=== PATIENT | female | born 1995 | race Caucasian/White ===

== ENCOUNTER → 2020-06-25 10:27 | Outpatient (BNVA) | payer OTHER, SELFPAY | PROVIDERS: PCP Internal Medicine; Referring Provider Internal Medicine; Visit Provider Nurse Practitioner Gerontology | DX: Z13.89 Encounter for screening for other disorder (principal) | CPT/HCPCS: 99212 ==

== ENCOUNTER 2021-03-21 01:19 | Emergency (ER) | payer OTHER, SELFPAY ==
[2021-03-21 01:33] VITALS: BP 135/100; PULSE 100; RESP 16; TEMP 36.4; O2SAT 95; BMI 42.5
== END 2021-03-21 03:04 | disposition left against medical advice (07) ==
PROVIDERS: Emergency Provider Emergency Medicine; PCP Internal Medicine
DX: K08.89 Other specified disorders of teeth and supporting structures (principal)
CPT/HCPCS: 99281; 99282

== ENCOUNTER 2021-06-23 09:04 | Outpatient (REF) | payer OTHER, SELFPAY ==
[2021-06-23 10:08] LABS: COVID-19 Test Negative (Negative)
== END 2021-06-23 09:05 | disposition home or self-care (01) ==
LOC: HO.LAB 09:04
PROVIDERS: Visit Provider Internal Medicine
DX: Z20.822 Contact with and (suspected) exposure to COVID-19 (principal)
CPT/HCPCS: 87635; C9803

== ENCOUNTER → 2021-07-31 11:00 | Outpatient (BNVA) | payer OTHER, SELFPAY | PROVIDERS: PCP Internal Medicine; Visit Provider Nurse Practitioner Gerontology ==

== ENCOUNTER 2021-09-04 15:52 | Outpatient (REF) | payer OTHER, SELFPAY ==
--- NOTE | ~2021-09-04 | XR_ITS ---
EXAMINATION: XR SHOULDER, RIGHT CLINICAL INFORMATION: Pain COMPARISON: None TECHNIQUE: 3 views of the right shoulder. FINDINGS: The bones and soft tissues are normal. No fracture. Glenohumeral and acromioclavicular alignment is anatomic with normal joint space. No abnormal soft tissue calcifications. XR/XR shoulder RT min 2V IMPRESSION: Normal right shoulder.
== END 2021-09-04 15:53 | disposition home or self-care (01) ==
LOC: HO.HMGCX 15:52
PROVIDERS: Visit Provider Physician Assistant Medical
DX: M25.511 Pain in right shoulder (principal)
CPT/HCPCS: 73030

== ENCOUNTER 2021-10-07 16:33 | Emergency (ER) | payer OTHER, SELFPAY ==
--- NOTE | 2021-10-07 | ECG_ITS ---
Test Reason : tachy Blood Pressure : / mmHG Vent. Rate : 138 BPM Atrial Rate : 138 BPM P-R Int : 120 ms QRS Dur : 064 ms QT Int : 356 ms P-R-T Axes : 000 055 040 degrees QTc Int : 539 ms Sinus tachycardia Nonspecific T wave abnormality Abnormal ECG When compared with ECG of 07-OCT-2021 17:20, No significant change was found Referred By: Pino Martinez Electronically Signed By:Deangelo Wood
--- NOTE | 2021-10-07 | ECG_ITS ---
Test Reason : tachy Blood Pressure : / mmHG Vent. Rate : 138 BPM Atrial Rate : 138 BPM P-R Int : 120 ms QRS Dur : 062 ms QT Int : 358 ms P-R-T Axes : 000 058 038 degrees QTc Int : 542 ms Sinus tachycardia Nonspecific T wave abnormality Abnormal ECG When compared with ECG of 06-SEP-2014 03:34, Nonspecific T wave abnormality now evident in Anterolateral leads Referred By: Generic ED Physician Electronically Signed By:Deangelo Wood
[2021-10-07 17:23] VITALS: BP 127/97; PULSE 128; RESP 19; TEMP 36.5; O2SAT 98; BMI 38.9
[2021-10-07 17:38] LABS: MANUAL DIFF FLAG NO
[2021-10-07 17:43] LABS: Venous Blood Gas Refer to POC result
[2021-10-07 17:44] LABS: VBG Base Excess 7.3 mmol/L; VBG HCO3 33 mmol/L (22-26); VBG pCO2 53 mmHg; VBG pO2 38 mmHg
[2021-10-07 17:46] LABS: Basophils Absolute Auto 0.1 X10*3/uL (0.0-0.2); Basophils Percent Auto 0.4 % (0-2); Eosinophils Absolute Auto 0.2 X10*3/uL (0.0-0.4); Eosinophils Percent Auto 1.2 % (0-4); Hematocrit 43.7 % (37.0-47.0); Hemoglobin 15.3 g/dl (12.0-16.0); Imm Gran Abs Auto 0.07 X10*3/uL (0.00-0.03); Imm Gran Pct Auto 0.5 % (0.0-0.4); Lymphocytes Absolute Auto 3.2 X10*3/uL (1.2-4.9); Lymphocytes Percent Auto 23.3 % (20-40); Mean Corpuscular Volume 88.5 fL (80.0-98.0); Mean Platelet Volume 10.2 fL (9.4-12.3); Monocytes Absolute Auto 1.1 X10*3/uL (0.1-1.2); Monocytes Percent Auto 8.4 % (2-11); Neutrophils Percent Auto 66.2 % (45-73); Platelet Count 415 X10*3/uL (160-400); Red Blood Count 4.94 X10*6/uL (4.20-5.50); Red Cell Distribution Width 12.2 % (11.0-16.0); White Blood Count 13.6 X10*3/uL (4.8-10.8)
[2021-10-07 17:57] LABS: Acetone, serum QL Negative (Negative)
[2021-10-07 18:02] LABS: Alanine Aminotransferase 13 U/L (0-31); Alkaline Phosphatase 100 U/L (39-117); Anion Gap 15 (12-20); Aspartate Amino Transferase 10 U/L (5-31); Bilirubin Direct 0.2 mg/dL (0.0-0.5); Bilirubin Total 0.5 mg/dL (0.0-1.0); Blood Urea Nitrogen 9 mg/dL (9-16); Calcium 9.9 mg/dL (8.4-10.2); Carbon Dioxide 31 mmol/L (22-29); Chloride 96 mmol/L (96-108); Creatinine Clr Calc Pharmacy 114.9; Estimated Glomerular Filt Rate > 60; Glucose Random 312 mg/dL (60-115); Magnesium 1.5 mg/dL (1.6-2.6); Potassium 3.9 mmol/L (3.3-5.1); Sodium 138 mmol/L (135-145); Total Protein 7.2 g/dL (6.5-8.0)
--- NOTE | 2021-10-07 19:02 | ED.RECABL ---
HPI - Recheck/Abnormal Lab/Rx General Chief Complaint: Recheck/Abnormal Lab/Rx Stated Complaint: abnormal blood sugar Time Seen by Provider: 10/07/21 17:16 Source: patient Mode of arrival: ambulatory Limitations: no limitations History of Present Illness HPI narrative: high sugars all day, with nausea. Associated symptoms: other (weakness) Related Data Home Medications Medication Instructions Recorded Confirmed lisinopril 5 mg tablet 5 mg PO DAILY 06/25/20 09/09/21 Previous Rx's Medication Instructions Recorded pen needle, diabetic 32 gauge x #175 ea 06/18/20 (BD Ultra-Fine Raisa Pen Needle) insulin lispro 100 unit/mL 11 - 25 unit (0.11 - 0.25 mL) 02/13/21 subcutaneous pen (Humalog KwikPen SUBCUT QID 30 Days #15 ml (U-100) Insulin) cholecalciferol (vitamin D3) 125 125 mcg PO DAILY #30 cap 07/14/21 mcg (5,000 unit) capsule glucagon 3 mg/actuation nasal 3 mg INTRANASAL ONCE 30 Days #2 ea 07/14/21 spray (Baqsimi) blood-glucose meter (FreeStyle #1 ea 07/22/21 Lite Meter) insulin glargine U-300 conc 300 40 unit (0.1333 mL) SUBCUT DAILY 07/31/21 unit/mL (3 mL) subcutaneous pen #6 ml (Toujeo Max U-300 SoloStar) acetone (urine) test (Ketostix) #25 ea 08/04/21 blood sugar diagnostic (FreeStyle #120 ea 08/04/21 Lite Strips) Allergies Allergy/AdvReac Type Severity Reaction Status Date / Time Sulfa (Sulfonamide Allergy Intermediate HIVES, bad Verified 09/09/21 13:07 Antibiotics) rash [SULFA (SULFONAMIDE ANTIBIOTICS)] naproxen AdvReac Severe Unknown Verified 09/09/21 13:08 Review of Systems Constitutional: Constitutional: Reports no additional constitutional complaints Eyes: Eyes: Reports no additional eye complaints ENT: Denies dizziness Cardiovascular: Cardiovascular: Reports no additional cardiovascular complaints Respiratory: Respiratory: Reports as per HPI Gastrointestinal: Gastrointestinal: Reports no additional gastrointestinal complaints Genitourinary: Genitourinary: Reports no additional female genitourinary complaints Musculoskeletal: Musculoskeletal: Reports no additional musculoskeletal complaints Integumentary/Breasts: Skin/Breast: Denies rash Neurologic: Denies dizziness and Denies Sensory deficit (Neuro) Psychiatric: Psychiatric: Denies anxiety [facility] Past Medical History Medical History Adult BMI 45.0-49.9 kg/sq m Proteinuria Type 1 diabetes mellitus with hyperglycemia Type 1 diabetes mellitus with nephropathy Vitamin D deficiency Surgical History Hx of oral surgery Family History Family History Father No problems noted. Mother No problems noted. Maternal Grandfather Diabetes Social History Social History Household Members: Other Household Members Other:: parent/mother Housing: House Patient Tobacco Use Status: Never used Tobacco Advance Directives: No Current occupational status: employed Cognitive needs: No Hearing needs: No Vision needs: No Physical Exam Vital Signs: Vital Signs: Last Vital Signs Temp 97.9 F 10/07/21 21:12 Pulse 108 H 10/07/21 21:12 Resp 14 10/07/21 21:12 BP 130/88 10/07/21 21:12 Pulse Ox 98 10/07/21 21:12 BMI result Body Mass Index 38.9 Const: General: healthy appearing Nutritional Appearance: average body habitus Orientation/consciousness: oriented to person and patient oriented x3 Limitations: no limitations HEENT: Head: Yes normal to inspection Ears: external ears normal General nose exam: Normal external nose present Mouth: Normal oral and palatal mucosa present and oropharynx normal Throat: Yes posterior oropharynx normal Eyes: General: appearance normal, both eyes and all related structures Neck: Other: supple Neck: Yes normal visual inspection Chest: Chest palpation & inspection: normal inspection of the chest Resp: Auscultation: clear to auscultation bilaterally Cardio: Jugular venous distension: no JVD Rate: regular rate Rhythm: regular rhythm Heart sounds: S1 normal heart sound present and S2 normal heart sound present GI: Inspection: Yes normal to inspection Palpation (GI): Soft to palpation, nontender and No hepatosplenomegaly present Auscultation: normal bowel sounds : General: Yes no CVA tenderness Back/Spine/Pelvis: Back: no CVA tenderness Skin: General skin exam: no rashes or lesions noted Neuro: General: oriented to person and patient oriented x3 Cranial nerves: Yes CN's II-XII intact bilaterally Motor exam (neuro): 5/5 motor strength present throughout Sensory Exam: No Sensory deficit (Neuro) Extrem: General: Yes normal to inspection Psych: Appearance: grossly normal Course Reevaluation(s) Reevaluation #1: glucose down to 266 awaiting UA, if normal will dc home Time: 21:00 MDM - Recheck/Abnormal Lab/Rx Lab Data Result diagrams: 10/07/21 17:34 10/07/21 17:34 Labs: Lab Results 10/07/21 10/07/21 10/07/21 Range/Units 17:34 17:34 17:34 WBC 13.6 H (4.8-10.8) X10*3/uL RBC 4.94 (4.20-5.50) X10*6/uL Hgb 15.3 (12.0-16.0) g/dl Hct 43.7 (37.0-47.0) % MCV 88.5 (80.0-98.0) fL MCH 31.0 (27.0-33.0) pg MCHC 35.0 (31.0-35.0) g/dl RDW 12.2 (11.0-16.0) % Plt Count 415 H (160-400) X10*3/uL MPV 10.2 (9.4-12.3) fL Immature Gran % (Auto) 0.5 H (0.0-0.4) % Neut % (Auto) 66.2 (45-73) % Lymph % (Auto) 23.3 (20-40) % [place] % (Auto) 8.4 (2-11) % Eos % (Auto) 1.2 (0-4) % Baso % (Auto) 0.4 (0-2) % Lymph # (Auto) 3.2 (1.2-4.9) X10*3/uL [place] # (Auto) 1.1 (0.1-1.2) X10*3/uL Eos # (Auto) 0.2 (0.0-0.4) X10*3/uL Baso # (Auto) 0.1 (0.0-0.2) X10*3/uL Abs Immat Gran (auto) 0.07 H (0.00-0.03) X10*3/uL Absolute Neuts (auto) 9.0 H (2.0-8.3) x10*3/uL Absolute Nucleated RBC 0.000 (0.0-0.012) X10*3/uL Nucleated RBC % (auto) 0.0 (0.0-0.2) /100WBC VBG pH (7.32-7.43) VBG pCO2 mmHg VBG pO2 mmHg VBG HCO3 (22-26) mmol/L VBG O2 Saturation % VBG Base Excess mmol/L Sodium 138 (135-145) mmol/L Potassium 3.9 (3.3-5.1) mmol/L Chloride 96 (96-108) mmol/L Carbon Dioxide 31 H (22-29) mmol/L Anion Gap 15 (12-20) BUN 9 (9-16) mg/dL Creatinine 0.79 (0.5-1.4) mg/dL Estim Creat Clear Calc 114.9 Estimated GFR > 60 POC Glucose (60-115) mg/dL Random Glucose 312 H (60-115) mg/dL Calcium 9.9 (8.4-10.2) mg/dL Magnesium 1.5 L (1.6-2.6) mg/dL Total Bilirubin 0.5 (0.0-1.0) mg/dL Direct Bilirubin 0.2 (0.0-0.5) mg/dL AST 10 (5-31) U/L ALT 13 (0-31) U/L Alkaline Phosphatase 100 (39-117) U/L Total Protein 7.2 (6.5-8.0) g/dL Albumin 4.0 (3.5-5.0) g/dL Beta HCG, Quant < 2 mIU/mL Urine Color Urine Appearance Urine pH (5.0-8.0) Ur Specific [place] (1.005-1.025) Urine Protein (NEG-TRACE) MG/DL Urine Glucose (UA) (NEG) MG/DL Urine Ketones (NEG) MG/DL Urine Blood (NEG) Urine Nitrite (NEG) Ur Leukocyte Esterase (NEG) Urine RBC (0) /HPF Urine WBC (0-4) /HPF Ur Squamous Epith Cells /LPF Urine Bacteria /LPF Urine Test (NEGATIVE) Acetone, Qual Negative (Negative) 10/07/21 10/07/21 10/07/21 Range/Units 17:38 19:12 20:52 WBC (4.8-10.8) X10*3/uL RBC (4.20-5.50) X10*6/uL Hgb (12.0-16.0) g/dl Hct (37.0-47.0) % MCV (80.0-98.0) fL MCH (27.0-33.0) pg MCHC (31.0-35.0) g/dl RDW (11.0-16.0) % Plt Count (160-400) X10*3/uL MPV (9.4-12.3) fL Immature Gran % (Auto) (0.0-0.4) % Neut % (Auto) (45-73) % Lymph % (Auto) (20-40) % [place] % (Auto) (2-11) % Eos % (Auto) (0-4) % Baso % (Auto) (0-2) % Lymph # (Auto) (1.2-4.9) X10*3/uL [place] # (Auto) (0.1-1.2) X10*3/uL Eos # (Auto) (0.0-0.4) X10*3/uL Baso # (Auto) (0.0-0.2) X10*3/uL Abs Immat Gran (auto) (0.00-0.03) X10*3/uL Absolute Neuts (auto) (2.0-8.3) x10*3/uL Absolute Nucleated RBC (0.0-0.012) X10*3/uL Nucleated RBC % (auto) (0.0-0.2) /100WBC VBG pH 7.40 (7.32-7.43) VBG pCO2 53 mmHg VBG pO2 38 mmHg VBG HCO3 33 H (22-26) mmol/L VBG O2 Saturation 52.0 % VBG Base Excess 7.3 mmol/L Sodium (135-145) mmol/L Potassium (3.3-5.1) mmol/L Chloride (96-108) mmol/L Carbon Dioxide (22-29) mmol/L Anion Gap (12-20) BUN (9-16) mg/dL Creatinine (0.5-1.4) mg/dL Estim Creat Clear Calc Estimated GFR POC Glucose 339 H 266 H (60-115) mg/dL Random Glucose (60-115) mg/dL Calcium (8.4-10.2) mg/dL Magnesium (1.6-2.6) mg/dL Total Bilirubin (0.0-1.0) mg/dL Direct Bilirubin (0.0-0.5) mg/dL AST (5-31) U/L ALT (0-31) U/L Alkaline Phosphatase (39-117) U/L Total Protein (6.5-8.0) g/dL Albumin (3.5-5.0) g/dL Beta HCG, Quant mIU/mL Urine Color Urine Appearance Urine pH (5.0-8.0) Ur Specific [place] (1.005-1.025) Urine Protein (NEG-TRACE) MG/DL Urine Glucose (UA) (NEG) MG/DL Urine Ketones (NEG) MG/DL Urine Blood (NEG) Urine Nitrite (NEG) Ur Leukocyte Esterase (NEG) Urine RBC (0) /HPF Urine WBC (0-4) /HPF Ur Squamous Epith Cells /LPF Urine Bacteria /LPF Urine Test (NEGATIVE) Acetone, Qual (Negative) 10/07/21 10/07/21 Range/Units 20:58 20:58 WBC (4.8-10.8) X10*3/uL RBC (4.20-5.50) X10*6/uL Hgb (12.0-16.0) g/dl Hct (37.0-47.0) % MCV (80.0-98.0) fL MCH (27.0-33.0) pg MCHC (31.0-35.0) g/dl RDW (11.0-16.0) % Plt Count (160-400) X10*3/uL MPV (9.4-12.3) fL Immature Gran % (Auto) (0.0-0.4) % Neut % (Auto) (45-73) % Lymph % (Auto) (20-40) % [place] % (Auto) (2-11) % Eos % (Auto) (0-4) % Baso % (Auto) (0-2) % Lymph # (Auto) (1.2-4.9) X10*3/uL [place] # (Auto) (0.1-1.2) X10*3/uL Eos # (Auto) (0.0-0.4) X10*3/uL Baso # (Auto) (0.0-0.2) X10*3/uL Abs Immat Gran (auto) (0.00-0.03) X10*3/uL Absolute Neuts (auto) (2.0-8.3) x10*3/uL Absolute Nucleated RBC (0.0-0.012) X10*3/uL Nucleated RBC % (auto) (0.0-0.2) /100WBC VBG pH (7.32-7.43) VBG pCO2 mmHg VBG pO2 mmHg VBG HCO3 (22-26) mmol/L VBG O2 Saturation % VBG Base Excess mmol/L Sodium (135-145) mmol/L Potassium (3.3-5.1) mmol/L Chloride (96-108) mmol/L Carbon Dioxide (22-29) mmol/L Anion Gap (12-20) BUN (9-16) mg/dL Creatinine (0.5-1.4) mg/dL Estim Creat Clear Calc Estimated GFR POC Glucose (60-115) mg/dL Random Glucose (60-115) mg/dL Calcium (8.4-10.2) mg/dL Magnesium (1.6-2.6) mg/dL Total Bilirubin (0.0-1.0) mg/dL Direct Bilirubin (0.0-0.5) mg/dL AST (5-31) U/L ALT (0-31) U/L Alkaline Phosphatase (39-117) U/L Total Protein (6.5-8.0) g/dL Albumin (3.5-5.0) g/dL Beta HCG, Quant mIU/mL Urine Color YELLOW Urine Appearance CLEAR Urine pH 5.5 (5.0-8.0) Ur Specific [place] >= 1.030 H (1.005-1.025) Urine Protein TRACE (NEG-TRACE) MG/DL Urine Glucose (UA) 500 H (NEG) MG/DL Urine Ketones 15 (NEG) MG/DL Urine Blood 2+ H (NEG) Urine Nitrite NEG (NEG) Ur Leukocyte Esterase NEG (NEG) Urine RBC 5-9 H (0) /HPF Urine WBC 0 (0-4) /HPF Ur Squamous Epith Cells TRACE /LPF Urine Bacteria 1+ /LPF Urine Test NEGATIVE (NEGATIVE) Acetone, Qual (Negative) Discharge Plan Discharge Clinical Impression: Hyperglycemia Patient Disposition: Home, Self-Care Instructions: Diabetic Hyperglycemia (ED) Prescriptions: No Action (DME) pen needle, diabetic [BD Ultra-Fine Raisa Pen Needle] 32 gauge x 5/32 needle See Rx Instructions .ROUTE .MEDSUPPLY Qty: 175 11RF Rx Instructions: As directed five to six times a day insulin lispro [Humalog KwikPen Insulin] 100 unit/mL insulin pen 11 - 25 unit subcut QID 30 Days Qty: 15 3RF Baqsimi 3 mg/actuation spray,non-aerosol 3 mg intranasal ONCE 30 Days Qty: 2 6RF Rx Instructions: [place] once for severe hypoglycemia when patient cannot self-treat with glucose. Afterwards turn on side. May repeat after 15 minutes if patient does not respond. cholecalciferol (vitamin D3) 125 mcg (5,000 unit) capsule 125 mcg PO DAILY Qty: 30 11RF (DME) blood-glucose meter [FreeStyle Lite Meter] Kit See Rx Instructions .ROUTE .MEDSUPPLY Qty: 1 0RF Rx Instructions: As directed 4x/day (DME) FreeStyle Lite Strips Strip See Rx Instructions .Route Qty: 120 11RF Rx Instructions: As directed 4 times daily (DME) Ketostix Strip See Rx Instructions .ROUTE .MEDSUPPLY Qty: 25 11RF Rx Instructions: As directed lisinopril 5 mg tablet 5 mg PO DAILY 0RF Toujeo Max U-300 SoloStar 300 unit/mL (3 mL) insulin pen 40 unit subcut DAILY Qty: 6 5RF Referrals: Robert Taylor MD [Primary Care Provider] - 5 days
[2021-10-07 19:17] LABS: Glucose, Whole Blood 339 mg/dL (60-115)
[2021-10-07] MEDS: Ondansetron ODT 4 MG TAB.RAPDIS TRANSLINGU (19:19)
[2021-10-07] MEDS: Insulin Lispro 100 UNIT/ML 3 ML VIAL 6 UNIT SUBCUT (19:19)
[2021-10-07 19:21] VITALS: BP 128/94; PULSE 120; RESP 20; O2SAT 96
[2021-10-07 19:33] LABS: HCG Quantitative < 2 mIU/mL
[2021-10-07 21:04] LABS: Glucose, Whole Blood 266 mg/dL (60-115)
[2021-10-07 21:12] VITALS: BP 130/88; PULSE 108; RESP 14; TEMP 36.6; O2SAT 98
[2021-10-07 21:26] LABS: Appearance Urine CLEAR; Color Urine YELLOW; Glucose Urine UA 500 MG/DL (NEG); Leukocyte Esterase Urine NEG (NEG); Nitrite Urine NEG (NEG); PH 5.5 (5.0-8.0); Specific Gravity - Urine >= 1.030 (1.005-1.025); UACC Culture Trigger NO; Urine Blood 2+ (NEG); Urine Ketones 15 MG/DL (NEG); Urine Protein TRACE MG/DL (NEG-TRACE)
[2021-10-07 21:27] LABS: UPreg QC Valid YES; Urine Pregnancy NEGATIVE (NEGATIVE)
[2021-10-07 21:33] LABS: Bacteria Urine 1+ /LPF; Squamous Epithelial Cell Urine TRACE /LPF; WBC Urine 0 /HPF (0-4)
== END 2021-10-07 21:43 | disposition home or self-care (01) ==
PROVIDERS: Emergency Medicine; Emergency Provider Emergency Medicine; PCP Internal Medicine
DX: E10.65 Type 1 diabetes mellitus with hyperglycemia (principal); R00.0 Tachycardia, unspecified
CPT/HCPCS: 36415; 80048; 80076; 81001; 81025; 82009; 82803; 82947; 83735; 84702; 85025; 93005; 99283; 99284

== ENCOUNTER → 2021-10-13 10:55 | Outpatient (BNVA) | payer OTHER, SELFPAY | PROVIDERS: PCP Internal Medicine; Visit Provider Physician Assistant | DX: M75.01 Adhesive capsulitis of right shoulder (principal) | CPT/HCPCS: 99202 ==

== ENCOUNTER → 2021-12-22 12:53 | Outpatient (BNVA) | payer OTHER, MEDICAID, SELFPAY | PROVIDERS: PCP Internal Medicine; Visit Provider Physician Assistant | DX: M75.01 Adhesive capsulitis of right shoulder (principal) | CPT/HCPCS: 99212 ==

== ENCOUNTER 2022-01-05 14:00 | Outpatient (REF) | payer OTHER, SELFPAY ==
--- NOTE | ~2022-01-05 | MR_ITS ---
EXAMINATION: MR SHOULDER WITHOUT CONTRAST, RIGHT CLINICAL INFORMATION: Right shoulder pain and limited range of motion. Pain increases with activity. Adhesive capsulitis. COMPARISON: Right shoulder radiographs dated 09/04/2021. TECHNIQUE: MRI of the shoulder without contrast was performed on a high-field scanner. FINDINGS: ROTATOR CUFF: Intact. No muscle atrophy or fatty infiltration. BICEPS: Intact. CORACOACROMIAL ARCH: The undersurface of the acromion is flat with no subacromial spur. The acromioclavicular joint is normal. LABRUM/CAPSULE: No displaced labral tear. Mild thickening of the joint capsule with associated edema, most prominent inferiorly. Findings can be seen in the setting of adhesive capsulitis. GLENOHUMERAL JOINT/MARROW: Intact articular cartilage. No evidence of acute osseous injury. MR/MR shoulder RT wo con IMPRESSION: Mild thickening of the joint capsule with adjacent edema which can be seen in the setting of adhesive capsulitis.
== END 2022-01-05 14:01 | disposition home or self-care (01) ==
LOC: HO.MRI 14:00
PROVIDERS: Visit Provider Physician Assistant
DX: M75.01 Adhesive capsulitis of right shoulder (principal)
CPT/HCPCS: 73221

== ENCOUNTER 2022-02-23 08:22 | Emergency (ER) | payer OTHER, SELFPAY ==
[2022-02-23 08:36] VITALS: BP 147/101; PULSE 115; RESP 19; TEMP 36.6; O2SAT 98; BMI 37.5
--- NOTE | 2022-02-23 11:09 | ED.GENADULT ---
HPI - General Adult General Chief complaint: Vaginal Bleeding Stated complaint: vaginal bleeding, inflamed, also nail infection? Time Seen by Provider: 02/23/22 09:43 Source: patient Mode of arrival: ambulatory Limitations: no limitations History of Present Illness HPI narrative: Patient is a 27-year-old female with history of type 1 diabetes presenting today for vaginal pain. Patient describes a painful bump on the outside of her vagina, that started bleeding and leaking last night. States the bump has been there for few days. Denies any change in vaginal discharge, dysuria, fever, nausea, vomiting, chest pain, shortness of breath, abdominal pain, suprapubic pain. Patient is not established with OBGYN, and has never had a woman's health visit. The patient is not sexually active and has no concern about STIs at this time. Onset (ago): day(s) Location: genitals Radiation: non-radiation Severity: mild Severity scale (1-10): 3 Relieving factors: none Exacerbating factors: movement and other (Palpation, contact with closing or urine) Associated symptoms: denies other symptoms Treatments prior to arrival: none Related Data Home Medications Medication Instructions Recorded Confirmed lisinopril 5 mg tablet 5 mg PO DAILY 06/25/20 09/09/21 Previous Rx's Medication Instructions Recorded cholecalciferol (vitamin D3) 125 125 mcg PO DAILY #30 caps 07/14/21 mcg (5,000 unit) capsule glucagon 3 mg/actuation nasal 3 mg intranasal ONCE severe 07/14/21 spray (Baqsimi) hypoglycemia 30 days #2 ea blood-glucose meter (FreeStyle #1 ea 07/22/21 Lite Meter kit) insulin glargine U-300 conc 300 40 unit (0.1333 mL) subcut DAILY 07/31/21 unit/mL (3 mL) subcutaneous pen #6 mL (Toujeo Max U-300 SoloStar) acetone (urine) test (Ketostix #25 ea 08/04/21 strips) blood sugar diagnostic (FreeStyle #120 ea 08/04/21 Lite Strips) insulin lispro 100 unit/mL 11 - 25 unit (0.11 - 0.25 mL) 10/14/21 subcutaneous pen (Humalog KwikPen subcut QID 30 days #15 mL (U-100) Insulin) pen needle, diabetic 32 gauge x #175 ea 10/15/21 (BD Ultra-Fine Raisa Pen Needle) cephalexin 500 mg capsule 500 mg PO Q6H 7 days #28 caps 02/23/22 fluconazole 150 mg tablet 150 mg PO QWEEK 2 doses #2 tabs 02/23/22 (Diflucan) Allergies Allergy/AdvReac Type Severity Reaction Status Date / Time Sulfa (Sulfonamide Allergy Intermediate HIVES, bad Verified 10/13/21 11:05 Antibiotics) rash [SULFA (SULFONAMIDE ANTIBIOTICS)] naproxen AdvReac Severe Unknown Verified 10/13/21 11:05 Review of Systems Constitutional: Constitutional: Reports no additional constitutional complaints, Denies chills, Denies fever(s) and Denies night sweats Eyes: Eyes: Reports no additional eye complaints, Denies blurry vision, Denies change in vision, Denies diplopia, Denies eye discharge, Denies loss of vision and Denies eye pain ENT: Denies dizziness Cardiovascular: Cardiovascular: Reports no additional cardiovascular complaints, Denies chest pain, Denies lightheadedness, Denies Loss of Consciousness and Denies dyspnea Respiratory: Respiratory: Reports no additional respiratory complaints and Denies dyspnea Gastrointestinal: Gastrointestinal: Reports no additional gastrointestinal complaints, Denies abdominal pain, Denies melena, Denies hematochezia, Denies change in bowel habits and Denies change in stool character Genitourinary: Genitourinary: Denies hematuria, Denies urinary frequency, Reports genital lesions (Discharge that is bloody and pus), Denies dysuria, Denies urinary incontinence, Denies urinary hesitancy and Denies urinary urgency Musculoskeletal: Musculoskeletal: Reports no additional musculoskeletal complaints, Denies numbness and Denies tingling Neurologic: Denies dizziness, Denies loss of vision, Denies numbness and Denies tingling Psychiatric: Psychiatric: Reports no additional psychiatric complaints Endocrine: Endocrine: Reports no additional endocrine complaints Hematologic/Lymphatic: Hematologic/Lymphatic: Reports no additional hematologic/lymphatic complaints Allergic/Immunologic: Allergic/Immunologic: Reports no additional allergic/immunologic complaints PMFSH Past Medical History Attestation statement: The following information was validated with the patient. Source: old records reviewed Medical History Adult BMI 45.0-49.9 kg/sq m Proteinuria Type 1 diabetes mellitus with hyperglycemia Type 1 diabetes mellitus with nephropathy Vitamin D deficiency Surgical History Hx of oral surgery Family History Family History Father No problems noted. Mother No problems noted. 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 Cognitive needs: No Hearing needs: No Vision needs: No Physical Exam ED Vital Signs: Vital Signs - 24 hr 02/23/22 08:36 Temperature 98 F Pulse Rate 115 H Respiratory Rate 19 Blood Pressure 147/101 H Pulse Oximetry 98 Oxygen Delivery Method Room Air BMI result Body Mass Index 37.5 Const General: cooperative, no acute distress, alert and awake Nutritional Appearance: well nourished Orientation/consciousness: patient oriented x3 Limitations: no limitations HENMT Head: Yes normal to inspection and Yes atraumatic Ears: hearing grossly normal bilaterally and external ears normal General nose exam: Normal external nose present, no nasal discharge noted and no epistaxis Face and sinus: Yes normal facial exam, No abrasion and No laceration Mouth: Normal oral and palatal mucosa present, no drooling and no muffled voice Eyes General: appearance normal, both eyes and all related structures Periorbital: periorbital findings normal Eyelids: Yes eyelids normal Conjunctivae: conjunctivae normal Pupils: Equal, round and reactive pupils present EOM: EOMs intact bilaterally Neck Neck: Yes normal visual inspection, Yes full ROM and Yes no lymphadenopathy Chest Chest palpation & inspection: normal inspection of the chest Resp Effort & Inspection: normal respiratory effort and able to speak in complete sentences Auscultation: clear to auscultation bilaterally Cardio Rate: regular rate Rhythm: regular rhythm GI Inspection: Yes normal to inspection External Female Exam: externally tender, external swelling and lesion (left-sided lesion in the inferior labia draining pus, exquisitely tender ) Neuro General: patient oriented x3 and moves all extremities Cranial nerves: Yes Equal, round and reactive pupils present Cognition (Neuro): normal cognition Motor exam (neuro): 5/5 motor strength present throughout Sensory Exam: Normal double simultaneous stimulation for sensation Coordination: [id number] test normal Extrem General: Yes normal to inspection, Yes full ROM and Yes capillary refill normal Psych Appearance: grossly normal Mental Status: mental status grossly normal Affect: normal affect Attitude: cooperative Thought process: Normal thought process present Thought content: Normal thought content present Insight: Good insight present (Psych) Medical Decision Making MDM Narrative Medical decision making narrative: Patient is a 27 year old female presenting to the emergency department today with vaginal pain. Patient's physical exam showed a large erythematous area to the left labia with a ruptured area draining pus and blood. Additionally, patient's external vaginal tissue was erythematous and tender to palpation. Patient's blood work showed an elevated blood sugar of 484. Patient is aware of this elevated blood sugar and states that it is normal for her as she is a diabetic. Patient's urine showed no acute process. I explained my physical exam findings as well as all test results to the patient and the patient's mother. I answered all questions asked by the patient and the patient's mother. I stressed the importance of the patient taking her medication as prescribed. I stressed the importance of the patient following up with her primary care provider, an OBGYN, and a general surgeon. I stressed the importance of the patient returning to the emergency department immediately if her symptoms were to worsen or if she were to develop any dizziness, shortness of breath, difficulty breathing, chest pain, blurry vision, loss of vision, nausea, vomiting, abdominal pain, fever, chills, back pain, or any other complaints. Patient and the patient's mother verbalized agreement and understanding with this treatment plan and discharge. Medical Records Medical records reviewed: Yes I reviewed the patient's medical records. Lab Data Lab results reviewed: Yes I reviewed the patient's lab results. Result diagrams: 02/23/22 11:11 02/23/22 11:11 Labs: Lab Results 02/23/22 02/23/22 02/23/22 Range/Units 11:11 11:11 11:11 WBC 13.4 H (4.8-10.8) X10*3/uL RBC 4.16 L (4.20-5.50) X10*6/uL Hgb 13.6 (12.0-16.0) g/dl Hct 38.6 (37.0-47.0) % MCV 92.8 (80.0-98.0) fL MCH 32.7 (27.0-33.0) pg MCHC 35.2 H (31.0-35.0) g/dl RDW 12.6 (11.0-16.0) % Plt Count 340 (160-400) X10*3/uL MPV 10.8 (9.4-12.3) fL Immature Gran % (Auto) 0.4 (0.0-0.4) % Neut % (Auto) 65.2 (45-73) % Lymph % (Auto) 23.5 (20-40) % [place] % (Auto) 8.9 (2-11) % Eos % (Auto) 1.5 (0-4) % Baso % (Auto) 0.5 (0-2) % Lymph # (Auto) 3.1 (1.2-4.9) X10*3/uL [place] # (Auto) 1.2 (0.1-1.2) X10*3/uL Eos # (Auto) 0.2 (0.0-0.4) X10*3/uL Baso # (Auto) 0.1 (0.0-0.2) X10*3/uL Abs Immat Gran (auto) 0.05 H (0.00-0.03) X10*3/uL Absolute Neuts (auto) 8.7 H (2.0-8.3) x10*3/uL Absolute Nucleated RBC 0.000 (0.0-0.012) X10*3/uL Nucleated RBC % (auto) 0.0 (0.0-0.2) /100WBC Sodium 137 (135-145) mmol/L Potassium 3.9 (3.3-5.1) mmol/L Chloride 99 (96-108) mmol/L Carbon Dioxide 22 (22-29) mmol/L Anion Gap 20 (12-20) BUN 12 (9-16) mg/dL Creatinine 0.77 (0.5-1.4) mg/dL Estim Creat Clear Calc 114.4 Estimated GFR > 60 Random Glucose 484 H* (60-115) mg/dL Calcium 9.5 (8.4-10.2) mg/dL Urine Color Yellow Urine Appearance Clear Urine pH 6.0 (5.0-9.0) Ur Specific [place] >= 1.030 H (1.005-1.025) Urine Protein Negative (Neg-Trace) mg/dL Urine Glucose (UA) >=1000 H (Negative) mg/dL Urine Ketones 80 (Negative) mg/dL Urine Blood Small (1+) H (Negative) Urine Nitrite Negative (Negative) Ur Leukocyte Esterase Trace H (Negative) Urine RBC 3-5 H (0-2) /HPF Urine WBC 6-10 (0-5) /HPF Urine WBC Clumps Present Ur Squamous Epith Cells 0-2 (0-2) /HPF Urine Bacteria None Seen (None Seen) Hyaline Casts 0-2 (0-2) /LPF Urine Test (NEGATIVE) 02/23/22 Range/Units 11:11 WBC (4.8-10.8) X10*3/uL RBC (4.20-5.50) X10*6/uL Hgb (12.0-16.0) g/dl Hct (37.0-47.0) % MCV (80.0-98.0) fL MCH (27.0-33.0) pg MCHC (31.0-35.0) g/dl RDW (11.0-16.0) % Plt Count (160-400) X10*3/uL MPV (9.4-12.3) fL Immature Gran % (Auto) (0.0-0.4) % Neut % (Auto) (45-73) % Lymph % (Auto) (20-40) % [place] % (Auto) (2-11) % Eos % (Auto) (0-4) % Baso % (Auto) (0-2) % Lymph # (Auto) (1.2-4.9) X10*3/uL [place] # (Auto) (0.1-1.2) X10*3/uL Eos # (Auto) (0.0-0.4) X10*3/uL Baso # (Auto) (0.0-0.2) X10*3/uL Abs Immat Gran (auto) (0.00-0.03) X10*3/uL Absolute Neuts (auto) (2.0-8.3) x10*3/uL Absolute Nucleated RBC (0.0-0.012) X10*3/uL Nucleated RBC % (auto) (0.0-0.2) /100WBC Sodium (135-145) mmol/L Potassium (3.3-5.1) mmol/L Chloride (96-108) mmol/L Carbon Dioxide (22-29) mmol/L Anion Gap (12-20) BUN (9-16) mg/dL Creatinine (0.5-1.4) mg/dL Estim Creat Clear Calc Estimated GFR Random Glucose (60-115) mg/dL Calcium (8.4-10.2) mg/dL Urine Color Urine Appearance Urine pH (5.0-9.0) Ur Specific [place] (1.005-1.025) Urine Protein (Neg-Trace) mg/dL Urine Glucose (UA) (Negative) mg/dL Urine Ketones (Negative) mg/dL Urine Blood (Negative) Urine Nitrite (Negative) Ur Leukocyte Esterase (Negative) Urine RBC (0-2) /HPF Urine WBC (0-5) /HPF Urine WBC Clumps Ur Squamous Epith Cells (0-2) /HPF Urine Bacteria (None Seen) Hyaline Casts (0-2) /LPF Urine Test NEGATIVE (NEGATIVE) Discharge Plan Discharge Clinical Impression: Abscess, Vaginal yeast infection Patient Disposition: Home, Self-Care Instructions: Yeast Infection (ED), Abscess (ED) Additional Instructions: Apply warm compresses to the area. Follow up with your primary care provider, a general surgeon, and an OBGYN. Return to the emergency department immediately if your symptoms worsen or if you develop any dizziness, shortness of breath, difficulty breathing, chest pain, blurry vision, loss of vision, nausea, vomiting, abdominal pain, fever, chills, back pain, or any other complaints. Prescriptions: New fluconazole [Diflucan] 150 mg tablet 150 mg PO QWEEK Qty: 2 0RF cephalexin 500 mg capsule 500 mg PO Q6H 7 Days Qty: 28 0RF No Action Baqsimi 3 mg/actuation spray,non-aerosol 3 mg intranasal ONCE 30 Days Qty: 2 6RF Rx Instructions: [place] once for severe hypoglycemia when patient cannot self-treat with glucose. Afterwards turn on side. May repeat after 15 minutes if patient does not respond. cholecalciferol (vitamin D3) 125 mcg (5,000 unit) capsule 125 mcg PO DAILY Qty: 30 11RF (DME) blood-glucose meter [FreeStyle Lite Meter] Kit See Rx Instructions .ROUTE .MEDSUPPLY Qty: 1 0RF Rx Instructions: As directed 4x/day (DME) FreeStyle Lite Strips Strip See Rx Instructions .Route Qty: 120 11RF Rx Instructions: As directed 4 times daily (DME) Ketostix Strip See Rx Instructions .ROUTE .MEDSUPPLY Qty: 25 11RF Rx Instructions: As directed insulin lispro [Humalog KwikPen Insulin] 100 unit/mL insulin pen 11 - 25 unit subcut QID 30 Days Qty: 15 4RF (DME) pen needle, diabetic [BD Ultra-Fine Raisa Pen Needle] 32 gauge x 5/32 needle See Rx Instructions .ROUTE .MEDSUPPLY Qty: 175 11RF Rx Instructions: As directed five to six times a day lisinopril 5 mg tablet 5 mg PO DAILY Toujeo Max U-300 SoloStar 300 unit/mL (3 mL) insulin pen 40 unit subcut DAILY Qty: 6 5RF Referrals: [facility] [place] [facility] [Provider Group] (Call to establish and follow up with a general surgeon.) Robert Taylor MD [Primary Care Provider] - Sammy Talamantes MD [Physician] - (Call to establish and follow up with an OBGYN. ) Stand Alone Forms: Work/School Release Interventions: ED Discharge Assessment Last Done: 02/23/22 12:05 Discharge Date/Time: 02/23/22 12:08 Print Language: Nepali
[2022-02-23 11:14] LABS: MANUAL DIFF FLAG NO
[2022-02-23 11:18] LABS: Appearance Urine Clear; Color Urine Yellow; Glucose Urine UA >=1000 mg/dL (Negative); Leukocyte Esterase Urine Trace (Negative); Nitrite Urine Negative (Negative); Specific Gravity - Urine >= 1.030 (1.005-1.025); UMIC TRIGGER UACC YES; Urine Blood Small (1+) (Negative); Urine Ketones 80 mg/dL (Negative); Urine Protein Negative (Neg-Trace)
[2022-02-23 11:22] LABS: Basophils Absolute Auto 0.1 X10*3/uL (0.0-0.2); Basophils Percent Auto 0.5 % (0-2); Eosinophils Absolute Auto 0.2 X10*3/uL (0.0-0.4); Eosinophils Percent Auto 1.5 % (0-4); Hematocrit 38.6 % (37.0-47.0); Hemoglobin 13.6 g/dl (12.0-16.0); Imm Gran Abs Auto 0.05 X10*3/uL (0.00-0.03); Imm Gran Pct Auto 0.4 % (0.0-0.4); Lymphocytes Absolute Auto 3.1 X10*3/uL (1.2-4.9); Lymphocytes Percent Auto 23.5 % (20-40); Mean Corpuscular HGB Conc 35.2 g/dl (31.0-35.0); Mean Corpuscular Hemoglobin 32.7 pg (27.0-33.0); Mean Corpuscular Volume 92.8 fL (80.0-98.0); Mean Platelet Volume 10.8 fL (9.4-12.3); Monocytes Absolute Auto 1.2 X10*3/uL (0.1-1.2); Monocytes Percent Auto 8.9 % (2-11); Neutrophils Absolute Auto 8.7 x10*3/uL (2.0-8.3); Neutrophils Percent Auto 65.2 % (45-73); Platelet Count 340 X10*3/uL (160-400); Red Blood Count 4.16 X10*6/uL (4.20-5.50); Red Cell Distribution Width 12.6 % (11.0-16.0); UPreg QC Valid YES; Urine Pregnancy NEGATIVE (NEGATIVE); White Blood Count 13.4 X10*3/uL (4.8-10.8)
[2022-02-23 11:28] LABS: Bacteria Urine None Seen (None Seen); Hyaline Casts Urine 0-2 /LPF (0-2); Squamous Epithelial Cell Urine 0-2 /HPF (0-2); UACC Culture Trigger YES; WBC Clumps Urine Present
[2022-02-23 11:36] LABS: Anion Gap 20 (12-20); Blood Urea Nitrogen 12 mg/dL (9-16); Calcium 9.5 mg/dL (8.4-10.2); Carbon Dioxide 22 mmol/L (22-29); Chloride 99 mmol/L (96-108); Creatinine Clr Calc Pharmacy 114.4; Estimated Glomerular Filt Rate > 60; Glucose Random 484 mg/dL (60-115); Potassium 3.9 mmol/L (3.3-5.1); Sodium 137 mmol/L (135-145)
== END 2022-02-23 12:08 | disposition home or self-care (01) ==
PROVIDERS: Emergency Provider Emergency Medicine Emergency Medical Services; PCP Internal Medicine
DX: B37.3 Candidiasis of vulva and vagina (principal); N93.8 Other specified abnormal uterine and vaginal bleeding; Z79.899 Other long term (current) drug therapy
CPT/HCPCS: 36415; 80048; 81001; 81025; 85025; 87086; 87147; 99282; 99283

== ENCOUNTER → 2022-02-25 13:38 | Outpatient (BNVA) | payer OTHER, SELFPAY | PROVIDERS: PCP Internal Medicine; Visit Provider Physician Assistant | DX: M75.01 Adhesive capsulitis of right shoulder (principal) | CPT/HCPCS: 99212 ==

== ENCOUNTER → 2022-09-24 14:53 | Outpatient (BNVA) | payer OTHER, SELFPAY | PROVIDERS: PCP Internal Medicine; Visit Provider Internal Medicine Endocrinology, Diabetes & Metabolism | DX: E10.21 Type 1 diabetes mellitus with diabetic nephropathy (principal) | CPT/HCPCS: 82947; 83036; 99202 ==

== ENCOUNTER → 2022-11-24 13:56 | Outpatient (BNVA) | payer OTHER, SELFPAY | PROVIDERS: PCP Internal Medicine; Visit Provider Registered Nurse Diabetes Educator | DX: E10.65 Type 1 diabetes mellitus with hyperglycemia (principal); E10.21 Type 1 diabetes mellitus with diabetic nephropathy; R80.9 Proteinuria, unspecified; Z71.89 Other specified counseling | CPT/HCPCS: 99211 ==

== ENCOUNTER → 2022-12-01 13:21 | Outpatient (BNVA) | payer OTHER, SELFPAY | PROVIDERS: PCP Internal Medicine; Visit Provider Dietitian, Registered | DX: E10.65 Type 1 diabetes mellitus with hyperglycemia (principal); Z71.3 Dietary counseling and surveillance | CPT/HCPCS: 97802 ==

== ENCOUNTER 2023-03-25 08:23 | Outpatient (AMB) | payer OTHER, SELFPAY ==
--- NOTE | 2023-03-25 09:42 | AM.OFFWIN_ITS ---
Intake Vital Signs 03/25/23 09:43 Height 5 ft 2 in Weight 196 lb BMI 35.8 BP 128/70 Blood Pressure Location Lt brachial Position Sitting Pulse 89 Pulse Source Pulse Oximeter Temp 98.5 F Temp Source Temporal Artery Scan Pulse Oximetry (%) 99 Intake Visit Reasons: [id number] Intake Note: pt is here for c/o vomiting since last Tuesday, unsure the cause. patient states it looks like stomach acid Patient Tobacco Use Status: Never used Tobacco Allergies Sulfa (Sulfonamide Antibiotics) [SULFA (SULFONAMIDE ANTIBIOTICS)] Allergy (Intermediate, Verified 03/25/23 10:19) HIVES, bad rash naproxen Adverse Reaction (Severe, Verified 03/25/23 10:19) Unknown Medication List - Last Reconciled 03/25/23 by Esteban Guerin MD acetone (urine) test (Ketostix strips) As directed blood sugar diagnostic (FreeStyle Lite Strips) As directed 4 times daily blood-glucose meter (FreeStyle Lite Meter kit) As directed 4x/day cholecalciferol (vitamin D3) 125 mcg PO DAILY glucagon 3 mg/actuation (Baqsimi) 3 mg intranasal ONCE 30 days insulin glargine U-300 conc (Toujeo Max U-300 SoloStar) 40 units (0.1333 mL) subcut DAILY insulin lispro (Humalog KwikPen (U-100) Insulin) 11 - 25 units (0.11 - 0.25 mL) subcut QID 30 days lisinopril 5 mg PO DAILY pen needle, diabetic (BD Ultra-Fine Raisa Pen Needle) As directed five to six times a day Do you need a note to return to daycare/school/sports/work: Yes HPI [id number] HPI Details 28-year-old female presents to the [facility] for a sick visit. Patient is complaining of vomiting bile on 1 or 2 occasions. Bitter tasting fluid the with occasional stomach discomfort. No fevers or chills. Reports symptoms of belching and burping. [facility] Medical History Adult BMI 45.0-49.9 kg/sq m Proteinuria Type 1 diabetes mellitus with hyperglycemia Type 1 diabetes mellitus with nephropathy Vitamin D deficiency Surgical History Hx of oral surgery Family History Father No problems noted. Mother No problems noted. 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 Cognitive needs: No Hearing needs: No Vision needs: No Physical Exam Vital Signs: Last Vital Signs Temp 98.5 F 03/25/23 09:43 Pulse 89 03/25/23 09:43 BP 128/70 03/25/23 09:43 Pulse Ox 99 03/25/23 09:43 BMI result Body Mass Index 35.8 Const General: cooperative and healthy appearing Nutritional Appearance: well nourished Orientation/consciousness: patient oriented x3 Limitations: no limitations HEENT Head: Yes normal to inspection Eyes General: appearance normal, both eyes and all related structures Neck Neck: Yes normal visual inspection Chest Chest palpation & inspection: normal palpation of entire chest wall Resp Effort & Inspection: normal respiratory effort Neuro General: patient oriented x3 Assessment & Plan Assessment & Plan (1) GERD (gastroesophageal reflux disease): Code(s): K21.9 - Gastro-esophageal reflux disease without esophagitis Plan: PPI called in. If symptoms do not improve to follow-up here. Coding Level of Care Code Est Pt Level 3 (81934) Diagnoses GERD (gastroesophageal reflux disease) K21.9
[2023-03-25 09:43] VITALS: BP 128/70; PULSE 89; TEMP 36.9; O2SAT 99; BMI 35.8
== END 2023-03-25 10:09 | disposition home or self-care (01) ==
PROVIDERS: PCP Internal Medicine; Visit Provider Internal Medicine
DX: K21.9 Gastro-esophageal reflux disease without esophagitis (principal)
CPT/HCPCS: 99213

== ENCOUNTER 2023-04-06 11:55 | Outpatient (AMB) | payer OTHER, SELFPAY ==
[2023-04-06 11:58] VITALS: BP 120/76; PULSE 102; O2SAT 97; BMI 33.4
--- NOTE | 2023-04-06 11:58 | A.OFFPC_ITS ---
Vital Signs 04/06/23 11:58 Height 5 ft 2 in Weight 182 lb 8 oz BMI 33.4 BP 120/76 Blood Pressure Location Rt brachial Position Sitting Pulse 102 H Pulse Source Pulse Oximeter Pulse Oximetry (%) 97 Oxygen Delivery Method Room Air Intake Visit Reasons: Walk follow up 03/25/23. Allergies Sulfa (Sulfonamide Antibiotics) [SULFA (SULFONAMIDE ANTIBIOTICS)] Allergy (Intermediate, Verified 04/06/23 12:03) HIVES, bad rash naproxen Adverse Reaction (Severe, Verified 04/06/23 12:03) Unknown Medication List - Last Reconciled 04/06/23 by Robert Taylor MD acetone (urine) test (Ketostix strips) As directed blood sugar diagnostic (FreeStyle Lite Strips) As directed 4 times daily blood-glucose meter (FreeStyle Lite Meter kit) As directed 4x/day cholecalciferol (vitamin D3) 125 mcg PO DAILY glucagon 3 mg/actuation (Baqsimi) 3 mg intranasal ONCE 30 days insulin glargine U-300 conc (Toujeo Max U-300 SoloStar) 40 units (0.1333 mL) subcut DAILY insulin lispro (Humalog KwikPen (U-100) Insulin) 11 - 25 units (0.11 - 0.25 mL) subcut QID 30 days lisinopril 5 mg PO DAILY pantoprazole 20 mg PO DAILY 90 days pen needle, diabetic (BD Ultra-Fine Raisa Pen Needle) As directed five to six times a day Tobacco use date assessed: 04/06/23 Dental Screening Dental Screen Date: 04/06/23 Did you have a dental visit in the last 12 months?: No Did you have a dental problem in the last 6 months where you did not have access to dental care?: No Was dental information given to patient?: Patient has dentist HPI HPI Comments History of Present Illness Details Patient is a 28-year-old female who was seen in walk-in clinic 04 of April with a chief complaint nausea and vomiting for 2 days Patient verbalized to feeling like that off and on for a while She was started on pantoprazole 40 mg. She is doing very well now there is no nausea and she has not vomited since she started the medication Patient is to continue 40 mg for 1 month and then cut it down to pantoprazole 20 mg. Will continue that for 3 months and then stop the medication and see how she is doing. Patient will return for physical exam in 3 months [facility] Medical History Type 1 diabetes mellitus with nephropathy Proteinuria Adult BMI 45.0-49.9 kg/sq m Vitamin D deficiency Type 1 diabetes mellitus with hyperglycemia Surgical History Hx of oral surgery Family History Father No problems noted. Mother No problems noted. 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 1. Little interest or pleasure in doing things: several days 2. Feeling down, depressed, or hopeless: several days 3. Trouble falling or staying asleep, or sleeping too much: several days 4. Feeling tired or having little energy: several days 5. Poor appetite or overeating: more than half the days 6. Feeling bad about yourself - or that you are a failure or have let yourself or your family down: several days 7. Trouble concentrating on things, such as reading the newspaper or watching television: several days 8. Moving or speaking so slowly that other people could have noticed. Or the opposite - being so fidgety or restless that you have been moving around a lot more than usual: several days 9. Thoughts that you would be better off or of hurting yourself in some way: not at all Total score: 9 Depression Screening Interpretation: Positive Depression Screening Follow-up: Existing condition and In treatment Depression Screening Done: Yes 48575 - PHQ-9 Billing: Yes Source: Developed by Drs. Cheikh Adams, Rupal Rush, Kevin Casanova and colleagues, with an educational zach from [employer]. Thrive Questionnaire Date Thrive assessed: 04/06/23 I am a: Patient What is your living situation today?: I have a steady place to live Within the past 12 months, did the food you bought not last and you didn't have the money to get more?: Never true Within the past 12 months, did you worry whether your food would run out before you got money to buy more?: Never true Do you have trouble paying for medicines?: No Do you have trouble getting transportation to medical appointments?: Yes Do you have trouble paying your heating and electricity bill?: No Do you have trouble taking care of your child, family member or friend?: No Do you have trouble with day-to-day activities such as bathing, preparing meals, shopping, managing finances, etc.?: No Are you currently unemployed and looking for a job?: No Are you interested in more education?: Yes Please select the resources that you would like help with: None Currently or been in a relationship where the following occur: no concerns reported FANTASMA-7 AMB Questionnaire FANTASMA-7 Date FANTASMA - 7 assessed: 04/06/23 Feeling nervous, anxious, or on edge: 0 = Not at all Not being able to stop or control worryin = Not at all Worrying too much about different things: 1 = Several days Trouble relaxin = Several days Being so restless that it is hard to sit still: 1 = Several days Becoming easily annoyed or irritable: 1 = Several days Feeling afraid as if something awful might happen: 0 = Not at all Total FANTASMA-7 score (0-4 normal; 5-9 mild; 10-14 moderate; 15-21 severe): 4 Source: Developed by Drs. Cheikh Adams, Rupal Rush, Kevin Casanova and colleagues, with an educational zach from [employer]. FANTASMA-7 Assessment Billing FANTASMA-7 Assessment Tool: FANTASMA-7 Assessment 72843 Review of Systems Const Denies chills and Denies fever(s) ENT Denies epistaxis and Denies nasal discharge Card Denies chest pain Resp Denies chest congestion, Denies cough and Denies hemoptysis GI Denies diarrhea and Denies nausea Skin/Breast Denies rash Neuro Reports no additional complaints Psych Reports no additional complaints Endo Reports no additional complaints Physical exam (Primary Care) Vital Signs: Last Vital Signs Pulse 102 H 04/06/23 11:58 BP 120/76 04/06/23 11:58 Pulse Ox 97 04/06/23 11:58 Oxygen Delivery Method Room Air 04/06/23 11:58 BMI result Body Mass Index 33.4 Tobacco/Smoking Status: Tobacco use Status Tobacco use date assessed 04/06/23 04/06/23 12:04 Patient Tobacco Use Status Never used Tobacco 04/06/23 12:04 e-Cigarette/Vaping Use Never Used 04/06/23 12:04 PHQ-9: PHQ-9 Score PHQ-9: Total score 9 04/06/23 12:16 Depression Screening Interpretation: Positive Depression Screening Follow-up: Existing condition and In treatment Thrive Assessment: Date of Thrive Assessment Date Thrive assessed 04/06/23 04/06/23 12:16 Currently or been in a relationship where the following occur: no concerns reported Const General: cooperative, comfortable and no acute distress Orientation/consciousness: patient oriented x3 HENMT Head: Yes normocephalic Eyes General: appearance normal, both eyes and all related structures Neck Neck: Yes supple Resp Effort & Inspection: normal respiratory effort, no cough and no stridor Cardio Rhythm: regular rhythm Heart sounds: S1 normal heart sound present and S2 normal heart sound present Skin General skin exam: turgor normal Neuro General: patient oriented x3, tone normal and moves all extremities Extrem Right lower extremity: no edema Left lower extremity: no edema Assessment and Plan Assessment & Plan (1) Gastroesophageal reflux disease: Code(s): K21.9 - Gastro-esophageal reflux disease without esophagitis Qualifiers: Esophagitis presence: without esophagitis Qualified Code(s): K21.9 - Gastro-esophageal reflux disease without esophagitis (2) Nausea & vomiting: Code(s): R11.2 - Nausea with vomiting, unspecified Qualifiers: Vomiting type: unspecified Qualified Code(s): R11.2 - Nausea with vomiting, unspecified Plan Patient is a 28-year-old female who was seen in walk-in clinic 04 of April with a chief complaint nausea and vomiting for 2 days Patient verbalized to feeling like that off and on for a while She was started on pantoprazole 40 mg. She is doing very well now there is no nausea and she has not vomited since she started the medication Patient is to continue 40 mg for 1 month and then cut it down to pantoprazole 20 mg. Will continue that for 3 months and then stop the medication and see how she is doing. Patient will return for physical exam in 3 months Medications: Changed From pantoprazole 40 mg PO DAILY 30 tabs 0RF To pantoprazole 20 mg PO DAILY 90 tabs 0RF 90 days Coding Level of Care Code Est Pt Level 3 (81336) Diagnoses Gastroesophageal reflux disease without esophagitis K21.9 Esophagitis presence: without esophagitis Nausea and vomiting, unspecified vomiting type R11.2 Vomiting type: unspecified Additional Codes FANTASMA-7 Assessment Billing - FANTASMA-7 Assessment Tool: FANTASMA-7 Assessment 47119 ([id number])
== END 2023-04-06 12:13 | disposition home or self-care (01) ==
PROVIDERS: PCP Internal Medicine; Visit Provider Internal Medicine
DX: K21.9 Gastro-esophageal reflux disease without esophagitis (principal); R11.2 Nausea with vomiting, unspecified
CPT/HCPCS: 99213

== ENCOUNTER 2023-07-25 18:11 | Emergency (ER) | payer OTHER, SELFPAY ==
[2023-07-25 19:29] VITALS: BP 143/85; PULSE 118; RESP 16; TEMP 36.3; O2SAT 98; BMI 31.2
--- NOTE | 2023-07-25 19:29 | ED_ITS ---
HPI - General Adult General Chief complaint: Recheck/Abnormal Lab/Rx Stated complaint: high blood sugar 346 taken @ 1700 Time Seen by Provider: 07/25/23 22:54 Source: patient and family (Mother) Mode of arrival: ambulatory Limitations: no limitations History of Present Illness HPI narrative: A 28-year-old female type 1 diabetes appears to be poorly controlled with high A1c follow-up was which is complicated with neuropathy, patient's diabetes is controlled with insulin at home, came in today for blood sugar running in the 400s at home, complaining of polydipsia and polyuria, no fever chills. No headache, no CP, no SOB, no chills. Related Data Home Medications Medication Instructions Recorded Confirmed lisinopril 5 mg tablet 5 mg PO DAILY 06/25/20 04/06/23 Previous Rx's Medication Instructions Recorded glucagon 3 mg/actuation nasal 3 mg intranasal ONCE severe 07/14/21 spray (Baqsimi) hypoglycemia 30 days #2 ea blood-glucose meter (FreeStyle #1 ea 07/22/21 Lite Meter kit) acetone (urine) test (Ketostix #25 ea 08/04/21 strips) insulin glargine U-300 conc 300 40 unit (0.1333 mL) subcut DAILY 08/04/22 unit/mL (3 mL) subcutaneous pen #6 mL (Toujeo Max U-300 SoloStar) blood sugar diagnostic (FreeStyle #120 ea 12/02/22 Lite Strips) pen needle, diabetic 32 gauge x #175 ea 12/02/22 5/32 (BD Ultra-Fine Raisa Pen Needle) pantoprazole 20 mg tablet,delayed 20 mg PO DAILY 90 days #90 tabs 04/06/23 release cholecalciferol (vitamin D3) 125 125 mcg PO DAILY #30 caps 05/19/23 mcg (5,000 unit) capsule insulin lispro 100 unit/mL 11 - 25 unit (0.11 - 0.25 mL) 06/19/23 subcutaneous pen subcut QID #15 mL Allergies Allergy/AdvReac Type Severity Reaction Status Date / Time Sulfa (Sulfonamide Allergy Intermediate HIVES, bad Verified 07/25/23 19:29 Antibiotics) rash [SULFA (SULFONAMIDE ANTIBIOTICS)] naproxen AdvReac Severe Unknown Verified 07/25/23 19:29 Review of Systems 2 Review of Systems: All other systems are reviewed and are negative Constitutional: Reports as per HPI and Reports no additional constitutional complaints Eyes: Reports as per HPI and Reports no additional eye complaints Reports system reviewed and no additional complaints, except as documented Cardiovascular: Reports as per HPI and Reports no additional cardiovascular complaints Respiratory: Reports as per HPI and Reports no additional respiratory complaints Gastrointestinal: Reports as per HPI and Reports no additional gastrointestinal complaints Genitourinary: Reports no additional female genitourinary complaints Musculoskeletal: Reports no additional musculoskeletal complaints Skin/Breast: Reports system reviewed and no additional complaints, except as docu Psychiatric: Reports no additional psychiatric complaints Endocrine: Reports no additional endocrine complaints Hematologic/Lymphatic: Reports no additional hematologic/lymphatic complaints Allergic/Immunologic: Reports no additional allergic/immunologic complaints Reports system reviewed and no additional complaints, except as documented and Reports Abnormal speech present [facility] Past Medical History Medical History Type 1 diabetes mellitus with nephropathy Proteinuria Adult BMI 45.0-49.9 kg/sq m Vitamin D deficiency Type 1 diabetes mellitus with hyperglycemia Surgical History Hx of oral surgery Family History Family History Father No problems noted. Mother No problems noted. 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 Blood pressure elevated. Heart rate normal. Respiratory rate normal. Temperature normal. Oxygen saturation normal. Appearance: Alert. Oriented X3. No acute distress. Head: Normal external exam. Normocephalic. Atraumatic. No Fan signs noted. No raccoon eyes noted Eyes: PERRLA. EOMI. Conjunctiva and sclera normal. Eyelids normal. ENT: TM's Normal. Pharynx normal. Uvula midline. Moist mucous membranes. No trismus noted. No drooling noted. No muffled voice noted. Neck: Normal inspection. Neck supple. FROM. No adenopathy. Thyroid Normal. No meningeal signs. No neck mass noted. CVS: Normal heart rate and rhythm. Heart sound normal. No murmurs noted. Pulses normal throughout. Respiratory: No respiratory distress. Painless inspiration. Breath sounds normal. No wheezes/rales/rhonchi noted. Chest nontender. No accessory muscle usage noted or decreased air movement noted. Abdomen: Soft and nontender. Bowel sounds normal in all 4 quadrants. No distention noted. No organomegaly noted. No visible injury noted. Back: No CVA tenderness. Full range of motion noted. Skin: Skin warm and dry. Normal skin color. Normal skin turgor. No rashes/lesions/lacerations noted. Extremities: No lower extremity edema. Extremities exhibit normal range of motion. Extremities nontender. Neuro: Oriented X 3. Cranial nerve exam: II-XII are grossly intact No motor deficit. No sensory deficit. Reflexes normal. Course Course Course Narrative: RME: 28 year-old F w/ PMHx DM, presenting to the ED c/o hyperglycemia >300 at home (highest 402). Takes insulin (last look 10U around 5PM) & Toujeo (took at 7:15PM). +dizziness, chills, polydipsia. denies polyuria Labs, UA, viral testing ordered Full HPI, ROS and PE to be performed by primary ED provider. Reevaluation(s) Reevaluation #1: Poorly-controlled type 1 diabetes, patient is in no DKA normal pH after hydration in the ED BS is 168 with normal bicarb, will discharge home patient was instructed to follow-up with her account service associate. Time: 03:11 Medications Administered Discontinued Medications Generic Name Dose Route Start Last Admin Trade Name Freq PRN Reason Stop Dose Admin Sodium Chloride 1,000 mls @ 999 mls/hr 07/25/23 23:09 07/25/23 23:29 Ns IV 07/26/23 00:09 999 mls/hr .Q1H1M ONE Administration Medical Decision Making Differential Diagnosis Differential Diagnoses: The differential diagnosis associated with the presentation includes (DKA, hyperglycemia, electrolyte abnormality, acidosis, UTI, severe anemia, dehydration.) Admission/Observation Consideration of admission/observation: Escalation of care including admission/observation considered Lab Data MDM Lab Attestation statement: I reviewed the patient's lab results. 07/25/23 20:00 07/26/23 01:59 Labs: Lab Results 07/25/23 07/25/23 07/25/23 Range/Units 20:00 20:04 22:12 WBC 10.6 (4.8-10.8) X10*3/uL RBC 4.92 (4.20-5.50) X10*6/uL Hgb 15.5 (12.0-16.0) g/dl Hct 44.3 (37.0-47.0) % MCV 90.0 (80.0-98.0) fL MCH 31.5 (27.0-33.0) pg MCHC 35.0 (31.0-35.0) g/dl RDW 11.8 (11.0-16.0) % Plt Count 386 (160-400) X10*3/uL MPV 10.6 (9.4-12.3) fL Immature Gran % (Auto) 0.5 H (0.0-0.4) % Neut % (Auto) 76.1 H (45-73) % Lymph % (Auto) 17.6 L (20-40) % Spencer % (Auto) 4.7 (2-11) % Eos % (Auto) 0.5 (0-4) % Baso % (Auto) 0.6 (0-2) % Lymph # (Auto) 1.9 (1.2-4.9) X10*3/uL Spencer # (Auto) 0.5 (0.1-1.2) X10*3/uL Eos # (Auto) 0.1 (0.0-0.4) X10*3/uL Baso # (Auto) 0.1 (0.0-0.2) X10*3/uL Abs Immat Gran (auto) 0.05 H (0.00-0.03) X10*3/uL Absolute Neuts (auto) 8.1 (2.0-8.3) x10*3/uL Absolute Nucleated RBC 0.000 (0.0-0.012) X10*3/uL Nucleated RBC % (auto) 0.0 (0.0-0.2) /100WBC VBG pH 7.31 L (7.32-7.43) VBG pCO2 48 mmHg VBG pO2 43 mmHg VBG HCO3 24 (22-26) mmol/L VBG O2 Saturation 71.0 % VBG Base Excess -1.9 mmol/L Sodium 134 L (135-145) mmol/L Potassium 3.8 (3.3-5.1) mmol/L Chloride 95 L (96-108) mmol/L Carbon Dioxide 23 (22-29) mmol/L Anion Gap 20 (12-20) BUN 20 H (9-16) mg/dL Creatinine 0.87 (0.5-1.4) mg/dL Estim Creat Clear Calc 94.6 Estimated GFR > 60 POC Glucose 210 H (60-115) mg/dL Random Glucose 313 H (60-115) mg/dL Calcium 9.9 (8.4-10.2) mg/dL Magnesium 1.5 L (1.6-2.6) mg/dL Total Bilirubin 0.6 (0.0-1.0) mg/dL Direct Bilirubin 0.2 (0.0-0.5) mg/dL AST 11 (5-31) U/L ALT 15 (0-31) U/L Alkaline Phosphatase 93 (39-117) U/L Total Protein 7.8 (6.5-8.0) g/dL Albumin 4.3 (3.5-5.0) g/dL Lipase (8-78) U/L Beta-Hydroxybutyrate 3.19 H (0.02-0.27) mmol/L Urine Color Dark Yellow Urine Appearance Cloudy Urine pH 5.5 (5.0-9.0) Ur Specific [place] >= 1.030 H (1.005-1.025) Urine Protein 30 (1+) H (Neg-Trace) mg/dL Urine Glucose (UA) >=1000 H (Negative) mg/dL Urine Ketones >=160 (Negative) mg/dL Urine Blood Trace H (Negative) Urine Nitrite Negative (Negative) Ur Leukocyte Esterase Negative (Negative) Urine RBC 0-2 (0-2) /HPF Urine WBC 11-20 H (0-5) /HPF Ur Squamous Epith Cells 11-20 (0-2) /HPF Urine Bacteria 2+ (None Seen) Hyaline Casts 3-5 (0-2) /LPF Influenza Type A (PCR) NEGATIVE (Negative) Influenza Type B (PCR) NEGATIVE (Negative) RSV RNA Qual (PCR) NEGATIVE (Negative) SARS-CoV-2 RNA (RT-PCR) NEGATIVE (Negative) 07/26/23 07/26/23 07/26/23 Range/Units 01:28 01:31 01:59 WBC (4.8-10.8) X10*3/uL RBC (4.20-5.50) X10*6/uL Hgb (12.0-16.0) g/dl Hct (37.0-47.0) % MCV (80.0-98.0) fL MCH (27.0-33.0) pg MCHC (31.0-35.0) g/dl RDW (11.0-16.0) % Plt Count (160-400) X10*3/uL MPV (9.4-12.3) fL Immature Gran % (Auto) (0.0-0.4) % Neut % (Auto) (45-73) % Lymph % (Auto) (20-40) % Spencer % (Auto) (2-11) % Eos % (Auto) (0-4) % Baso % (Auto) (0-2) % Lymph # (Auto) (1.2-4.9) X10*3/uL Spencer # (Auto) (0.1-1.2) X10*3/uL Eos # (Auto) (0.0-0.4) X10*3/uL Baso # (Auto) (0.0-0.2) X10*3/uL Abs Immat Gran (auto) (0.00-0.03) X10*3/uL Absolute Neuts (auto) (2.0-8.3) x10*3/uL Absolute Nucleated RBC (0.0-0.012) X10*3/uL Nucleated RBC % (auto) (0.0-0.2) /100WBC VBG pH 7.42 (7.32-7.43) VBG pCO2 32 mmHg VBG pO2 50 mmHg VBG HCO3 21 L (22-26) mmol/L VBG O2 Saturation 84.0 % VBG Base Excess -1.9 mmol/L Sodium 137 (135-145) mmol/L Potassium 3.8 (3.3-5.1) mmol/L Chloride 101 (96-108) mmol/L Carbon Dioxide 22 (22-29) mmol/L Anion Gap 18 (12-20) BUN 16 (9-16) mg/dL Creatinine 0.67 (0.5-1.4) mg/dL Estim Creat Clear Calc 122.8 Estimated GFR > 60 POC Glucose 169 H (60-115) mg/dL Random Glucose 168 H (60-115) mg/dL Calcium 8.9 D (8.4-10.2) mg/dL Magnesium (1.6-2.6) mg/dL Total Bilirubin (0.0-1.0) mg/dL Direct Bilirubin (0.0-0.5) mg/dL AST (5-31) U/L ALT (0-31) U/L Alkaline Phosphatase (39-117) U/L Total Protein (6.5-8.0) g/dL Albumin (3.5-5.0) g/dL Lipase 8 (8-78) U/L Beta-Hydroxybutyrate (0.02-0.27) mmol/L Urine Color Urine Appearance Urine pH (5.0-9.0) Ur Specific [place] (1.005-1.025) Urine Protein (Neg-Trace) mg/dL Urine Glucose (UA) (Negative) mg/dL Urine Ketones (Negative) mg/dL Urine Blood (Negative) Urine Nitrite (Negative) Ur Leukocyte Esterase (Negative) Urine RBC (0-2) /HPF Urine WBC (0-5) /HPF Ur Squamous Epith Cells (0-2) /HPF Urine Bacteria (None Seen) Hyaline Casts (0-2) /LPF Influenza Type A (PCR) (Negative) Influenza Type B (PCR) (Negative) RSV RNA Qual (PCR) (Negative) SARS-CoV-2 RNA (RT-PCR) (Negative) Chronic Conditions Patient?s care impacted by: Diabetes Discharge Plan Discharge Clinical Impression: Type 1 diabetes mellitus with hyperglycemia Patient Disposition: Home, Self-Care Instructions: Diabetic Hyperglycemia (ED) Prescriptions: No Action Baqsimi 3 mg/actuation spray,non-aerosol 3 mg intranasal ONCE 30 Days Qty: 2 6RF Rx Instructions: [place] once for severe hypoglycemia when patient cannot self-treat with glucose. Afterwards turn on side. May repeat after 15 minutes if patient does not respond. (DME) blood-glucose meter [FreeStyle Lite Meter] Kit See Rx Instructions .ROUTE .MEDSUPPLY Qty: 1 0RF Rx Instructions: As directed 4x/day (DME) Ketostix Strip See Rx Instructions .ROUTE .MEDSUPPLY Qty: 25 11RF Rx Instructions: As directed Toujeo Max U-300 SoloStar 300 unit/mL (3 mL) insulin pen 40 unit subcut DAILY Qty: 6 5RF (DME) pen needle, diabetic [BD Ultra-Fine Raisa Pen Needle] 32 gauge x 5/32 needle See Rx Instructions .ROUTE .MEDSUPPLY Qty: 175 11RF Rx Instructions: As directed five to six times a day (DME) FreeStyle Lite Strips Strip See Rx Instructions .Route Qty: 120 11RF Rx Instructions: As directed 4 times daily cholecalciferol (vitamin D3) 125 mcg (5,000 unit) capsule 125 mcg PO DAILY Qty: 30 11RF insulin lispro 100 unit/mL insulin pen 11 - 25 unit subcut QID Qty: 15 4RF pantoprazole 20 mg tablet,delayed release (DR/EC) 20 mg PO DAILY 90 Days Qty: 90 0RF lisinopril 5 mg tablet 5 mg PO DAILY Referrals: Robert Taylor MD [Primary Care Provider] - Cheikh Cooper MD [Physician] -
[2023-07-25 20:05] LABS: MANUAL DIFF FLAG NO
[2023-07-25 20:07] LABS: Basophils Absolute Auto 0.1 X10*3/uL (0.0-0.2); Basophils Percent Auto 0.6 % (0-2); Eosinophils Absolute Auto 0.1 X10*3/uL (0.0-0.4); Eosinophils Percent Auto 0.5 % (0-4); Hematocrit 44.3 % (37.0-47.0); Hemoglobin 15.5 g/dl (12.0-16.0); Imm Gran Abs Auto 0.05 X10*3/uL (0.00-0.03); Imm Gran Pct Auto 0.5 % (0.0-0.4); Lymphocytes Absolute Auto 1.9 X10*3/uL (1.2-4.9); Lymphocytes Percent Auto 17.6 % (20-40); Mean Corpuscular Hemoglobin 31.5 pg (27.0-33.0); Mean Platelet Volume 10.6 fL (9.4-12.3); Monocytes Absolute Auto 0.5 X10*3/uL (0.1-1.2); Monocytes Percent Auto 4.7 % (2-11); Neutrophils Absolute Auto 8.1 x10*3/uL (2.0-8.3); Neutrophils Percent Auto 76.1 % (45-73); Platelet Count 386 X10*3/uL (160-400); Red Blood Count 4.92 X10*6/uL (4.20-5.50); Red Cell Distribution Width 11.8 % (11.0-16.0); White Blood Count 10.6 X10*3/uL (4.8-10.8)
[2023-07-25 20:08] LABS: Appearance Urine Cloudy; Color Urine Dark Yellow; Glucose Urine UA >=1000 mg/dL (Negative); Leukocyte Esterase Urine Negative (Negative); Nitrite Urine Negative (Negative); PH 5.5 (5.0-9.0); Specific Gravity - Urine >= 1.030 (1.005-1.025); UMIC TRIGGER UACC YES; Urine Blood Trace (Negative); Urine Ketones >=160 mg/dL (Negative); Urine Protein 30 (1+) mg/dL (Neg-Trace)
[2023-07-25 20:10] LABS: VBG Base Excess -1.9 mmol/L; VBG HCO3 24 mmol/L (22-26); VBG pCO2 48 mmHg; VBG pH 7.31 (7.32-7.43); VBG pO2 43 mmHg
[2023-07-25 20:14] LABS: Venous Blood Gas Refer to POC result
[2023-07-25 20:20] LABS: Bacteria Urine 2+ (None Seen); RBC Urine 0-2 /HPF (0-2); UACC Culture Trigger YES
[2023-07-25 20:37] LABS: Alanine Aminotransferase 15 U/L (0-31); Albumin Level 4.3 g/dL (3.5-5.0); Alkaline Phosphatase 93 U/L (39-117); Anion Gap 20 (12-20); Aspartate Amino Transferase 11 U/L (5-31); Bilirubin Direct 0.2 mg/dL (0.0-0.5); Bilirubin Total 0.6 mg/dL (0.0-1.0); Blood Urea Nitrogen 20 mg/dL (9-16); Calcium 9.9 mg/dL (8.4-10.2); Carbon Dioxide 23 mmol/L (22-29); Chloride 95 mmol/L (96-108); Creatinine Clr Calc Pharmacy 94.6; Estimated Glomerular Filt Rate > 60; Glucose Random 313 mg/dL (60-115); Magnesium 1.5 mg/dL (1.6-2.6); Potassium 3.8 mmol/L (3.3-5.1); Sodium 134 mmol/L (135-145); Total Protein 7.8 g/dL (6.5-8.0)
[2023-07-25 20:42] LABS: Beta-Hydroxybutyrate 3.19 mmol/L (0.02-0.27)
[2023-07-25 20:44] LABS: Influenza A PCR NEGATIVE (Negative); Influenza B PCR NEGATIVE (Negative); Resp Syncy Virus RNA Qual PCR NEGATIVE (Negative); SARS COV2 PCR INHOUSE NEGATIVE (Negative)
[2023-07-25 22:15] VITALS: BP 129/86; PULSE 90; RESP 18; TEMP 36.4; O2SAT 98
[2023-07-25 22:15] LABS: Glucose, Whole Blood 210 mg/dL (60-115)
[2023-07-25] MEDS: 0.9 % Sodium Chloride 1,000 ML 999 ML IV (23:29)
[2023-07-26 01:33] LABS: Venous Blood Gas Refer to POC result
[2023-07-26 01:36] LABS: VBG Base Excess -1.9 mmol/L; VBG HCO3 21 mmol/L (22-26); VBG pCO2 32 mmHg; VBG pH 7.42 (7.32-7.43); VBG pO2 50 mmHg
[2023-07-26 01:36] LABS: Glucose, Whole Blood 169 mg/dL (60-115)
[2023-07-26 01:40] VITALS: BP 119/81; PULSE 102; RESP 17; TEMP 36.7; O2SAT 100
[2023-07-26 02:24] LABS: Anion Gap 18 (12-20); Blood Urea Nitrogen 16 mg/dL (9-16); Calcium 8.9 mg/dL (8.4-10.2); Carbon Dioxide 22 mmol/L (22-29); Chloride 101 mmol/L (96-108); Creatinine Clr Calc Pharmacy 122.8; Estimated Glomerular Filt Rate > 60; Glucose Random 168 mg/dL (60-115); Lipase 8 U/L (8-78); Potassium 3.8 mmol/L (3.3-5.1); Sodium 137 mmol/L (135-145)
[2023-07-26 03:21] VITALS: BP 110/78; PULSE 115; RESP 18; TEMP 36.8; O2SAT 98
== END 2023-07-26 03:30 | disposition home or self-care (01) ==
PROVIDERS: Physician Assistant; Emergency Provider Emergency Medicine; PCP Internal Medicine
DX: E10.9 Type 1 diabetes mellitus without complications (principal); R79.89 Other specified abnormal findings of blood chemistry; Z20.828 Contact with and (suspected) exposure to other viral communicable diseases; Z11.52 Encounter for screening for COVID-19; Z79.899 Other long term (current) drug therapy; Z79.4 Long term (current) use of insulin
CPT/HCPCS: 0241U; 36415; 80048; 80076; 81001; 82010; 82803; 82947; 83690; 83735; 85025; 87086; 87147; 99283; 99284

== ENCOUNTER 2023-09-07 11:52 | Outpatient (AMB) | payer OTHER, SELFPAY ==
[2023-09-07 11:53] VITALS: BP 112/76; PULSE 98; O2SAT 99; BMI 32.1
--- NOTE | 2023-09-07 11:53 | MHC.PC.OV ---
Vital Signs 09/07/23 11:53 Height 5 ft 3 in Weight 181 lb BMI 32.1 BP 112/76 Blood Pressure Location Rt brachial Position Sitting Pulse 98 Pulse Source Pulse Oximeter Pulse Oximetry (%) 99 Oxygen Delivery Method Room Air Intake Visit Reasons: Followup Is last menstrual period known: Yes Last menstrual period: 08/10/23 Allergies Sulfa (Sulfonamide Antibiotics) [SULFA (SULFONAMIDE ANTIBIOTICS)] Allergy (Intermediate, Verified 09/07/23 11:54) HIVES, bad rash naproxen Adverse Reaction (Severe, Verified 09/07/23 11:54) Unknown Medication List - Last Reconciled 09/07/23 by Robert Taylor MD acetone (urine) test (Ketostix strips) As directed blood sugar diagnostic (FreeStyle Lite Strips) As directed 4 times daily blood-glucose meter (FreeStyle Lite Meter kit) As directed 4x/day cholecalciferol (vitamin D3) 125 mcg PO DAILY glucagon 3 mg/actuation (Baqsimi) 3 mg intranasal ONCE 30 days insulin glargine U-300 conc (Toujeo Max U-300 SoloStar) 40 units (0.1333 mL) subcut DAILY insulin lispro 11 - 25 units (0.11 - 0.25 mL) subcut QID lisinopril 5 mg PO DAILY pantoprazole 20 mg PO DAILY 90 days pen needle, diabetic (BD Ultra-Fine Raisa Pen Needle) As directed five to six times a day Tobacco use date assessed: 09/07/23 Dental Screening Dental Screen Date: 09/07/23 Did you have a dental visit in the last 12 months?: No Did you have a dental problem in the last 6 months where you did not have access to dental care?: No Was dental information given to patient?: Patient has dentist HPI Followup HPI Details Patient is a 28-year-old female came in today for physical examination Patient says that they were few deaths in the family that she need to reschedule her endocrinology appointment And now she can not get in I have sent message to endocrinology office if she need a new referral we will sent Meanwhile I have ordered labs for the patient to monitor her hemoglobin A1c along with kidney function liver enzymes and lipids She is also in need of OBGYN appointment BMI is elevated patient is trying to lose weight PFSH Medical History Type 1 diabetes mellitus with nephropathy Proteinuria Adult BMI 45.0-49.9 kg/sq m Vitamin D deficiency Type 1 diabetes mellitus with hyperglycemia Surgical History Hx of oral surgery Family History Father No problems noted. Mother No problems noted. 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 1. Little interest or pleasure in doing things: several days 2. Feeling down, depressed, or hopeless: several days 3. Trouble falling or staying asleep, or sleeping too much: several days 4. Feeling tired or having little energy: several days 5. Poor appetite or overeating: several days 6. Feeling bad about yourself - or that you are a failure or have let yourself or your family down: not at all 7. Trouble concentrating on things, such as reading the newspaper or watching television: not at all 8. Moving or speaking so slowly that other people could have noticed. Or the opposite - being so fidgety or restless that you have been moving around a lot more than usual: not at all 9. Thoughts that you would be better off or of hurting yourself in some way: not at all Total score: 5 Depression Screening Interpretation: Negative Depression Screening Done: Yes 68934 - PHQ-9 Billing: Yes Source: Developed by Drs. Cheikh Adams, Rupal Rush, Kevin Casanova and colleagues, with an educational zach from [employer]. Thrive Questionnaire Date Thrive assessed: 09/07/23 I am a: Patient What is your living situation today?: I have a steady place to live Within the past 12 months, did the food you bought not last and you didn't have the money to get more?: Never true Within the past 12 months, did you worry whether your food would run out before you got money to buy more?: Never true Do you have trouble paying for medicines?: No Do you have trouble getting transportation to medical appointments?: No Do you have trouble paying your heating and electricity bill?: No Do you have trouble taking care of your child, family member or friend?: No Do you have trouble with day-to-day activities such as bathing, preparing meals, shopping, managing finances, etc.?: No Are you currently unemployed and looking for a job?: No Are you interested in more education?: No Please select the resources that you would like help with: None Currently or been in a relationship where the following occur: no concerns reported THRIVE Score: 0 AUDIT C Alcohol Use Questionnaire (AUDIT-C) 1. How often do you have a drink containing alcohol?: Monthly or less 2. How many drinks containing alcohol do you have on a typical day when you are drinking?: 1 or 2 3. How often do you have six or more drinks on one occasion?: Never Total Score: 1 FANTASMA-7 AMB Questionnaire FANTASMA-7 Date FANTASMA - 7 assessed: 09/07/23 Feeling nervous, anxious, or on edge: 0 = Not at all Not being able to stop or control worryin = Not at all Worrying too much about different things: 0 = Not at all Trouble relaxin = Several days Being so restless that it is hard to sit still: 1 = Several days Becoming easily annoyed or irritable: 1 = Several days Feeling afraid as if something awful might happen: 0 = Not at all Total FANTASMA-7 score (0-4 normal; 5-9 mild; 10-14 moderate; 15-21 severe): 3 Source: Developed by Drs. Cheikh Adams, Rupal Rush, Kevin Casanova and colleagues, with an educational zach from [employer]. FANTASMA-7 Assessment Billing FANTASMA-7 Assessment Tool: FANTASMA-7 Assessment [id number] Review of Systems Const Denies chills, Denies fever(s) and Denies headache(s) Eyes Denies blurry vision ENT Denies headache(s), Denies nasal discharge, Denies nasal obstruction, Denies odynophagia and Denies sinus pain Card Denies chest pain at rest and Denies chest pain with activity Resp Denies cough and Denies hemoptysis GI Denies diarrhea, Denies odynophagia, Denies vomiting and Denies hematemesis Reports as per HPI Musc Denies abnormal gait Skin/Breast Reports as per HPI Neuro Denies Neuro-related abnormal movements, Denies Abnormal speech present, Denies abnormal gait, Denies headache(s) and Denies Sensory deficit (Neuro) Psych Denies mood swings and Denies paranoia Endo Reports as per HPI Lio/Lymph Reports as per HPI Aller/Immun Reports as per HPI Physical exam (Primary Care) Vital Signs: Last Vital Signs Pulse 98 09/07/23 11:53 BP 112/76 09/07/23 11:53 Pulse Ox 99 09/07/23 11:53 Oxygen Delivery Method Room Air 09/07/23 11:53 BMI result Body Mass Index 32.1 Tobacco/Smoking Status: Tobacco use Status Tobacco use date assessed 09/07/23 09/07/23 11:58 Patient Tobacco Use Status Never used Tobacco 09/07/23 11:58 e-Cigarette/Vaping Use Never Used 09/07/23 11:58 PHQ-9: PHQ-9 Score PHQ-9: Total score 5 09/07/23 12:10 Depression Screening Interpretation: Negative Thrive Assessment: Date of Thrive Assessment Date Thrive assessed 09/07/23 09/07/23 12:10 Currently or been in a relationship where the following occur: no concerns reported Const General: cooperative, comfortable and no acute distress Orientation/consciousness: patient oriented x3 HENMT Head: Yes normocephalic and Yes atraumatic Eyes General: appearance normal, both eyes and all related structures Pupils: Equal, round and reactive pupils present EOM: EOMs intact bilaterally Neck Neck: Yes supple and No lymphadenopathy Thyroid: Thyroid normal Lymphatic: no lymphadenopathy noted Resp Effort & Inspection: normal respiratory effort and able to speak in complete sentences Auscultation: clear to auscultation bilaterally Cardio Heart sounds: S1 normal heart sound present and S2 normal heart sound present GI Palpation (GI): Soft to palpation and nontender Auscultation: normal bowel sounds General: Yes no CVA tenderness Back/Spine/Pelvis Back: no CVA tenderness Skin General skin exam: elasticity normal and turgor normal Neuro General: patient oriented x3 and gait normal Cranial nerves: Yes Equal, round and reactive pupils present Speech: No Abnormal speech present Sensory Exam: No Sensory deficit (Neuro) Coordination: tandem gait normal and Romberg test negative Extrem General: Yes normal exam except as noted and No edema Assessment and Plan Assessment & Plan (1) Encounter for general adult medical examination with abnormal findings: Code(s): Z00.01 - Encounter for general adult medical examination with abnormal findings (2) Type 1 diabetes mellitus with hyperglycemia: Code(s): E10.65 - Type 1 diabetes mellitus with hyperglycemia (3) Type 1 diabetes mellitus with nephropathy: Code(s): E10.21 - Type 1 diabetes mellitus with diabetic nephropathy (4) Gastroesophageal reflux disease: Code(s): K21.9 - Gastro-esophageal reflux disease without esophagitis Qualifiers: Esophagitis presence: without esophagitis Qualified Code(s): K21.9 - Gastro-esophageal reflux disease without esophagitis (5) Vitamin D deficiency: Code(s): E55.9 - Vitamin D deficiency, unspecified (6) Type 1 diabetes mellitus: Code(s): E10.9 - Type 1 diabetes mellitus without complications Qualifiers: Diabetes mellitus complication status: with kidney complications Diabetes mellitus complication detail: with diabetic microalbuminuria Qualified Code(s): E10.29 - Type 1 diabetes mellitus with other diabetic kidney complication; R80.9 - Proteinuria, unspecified (7) 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: Code(s): Z79.4 - 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 (8) Obesity due to excess calories: Code(s): E66.09 - Other obesity due to excess calories Qualifiers: Obesity classification: adult class 1 (BMI 30 - 34.9) Serious obesity comorbidity presence: with serious comorbidity Body mass index: BMI 32.0-32.9 Qualified Code(s): E66.09 - Other obesity due to excess calories; Z68.32 - Body mass index [BMI] 32.0-32.9, adult Plan Patient is a 28-year-old female came in today for physical examination Patient says that they were few deaths in the family that she need to reschedule her endocrinology appointment And now she can not get in I have sent message to endocrinology office if she need a new referral we will sent Meanwhile I have ordered labs for the patient to monitor her hemoglobin A1c along with kidney function liver enzymes and lipids She is also in need of OBGYN appointment BMI is elevated patient is trying to lose weight Orders: Orders Hemoglobin A1c Today E10.21 - Type 1 diabetes mellitus with diabetic nephropathy, E10.65 - Type 1 diabetes mellitus with hyperglycemia, E55.9 - Vitamin D deficiency, unspecified, K21.9 - Gastro-esophageal reflux disease without esophagitis, Z00.01 - Encounter for general adult medical examination with abnormal findings Microalbumin, Random (w Creat) Today E10.21 - Type 1 diabetes mellitus with diabetic nephropathy, E10.65 - Type 1 diabetes mellitus with hyperglycemia, E55.9 - Vitamin D deficiency, unspecified, K21.9 - Gastro-esophageal reflux disease without esophagitis, Z00.01 - Encounter for general adult medical examination with abnormal findings Complete Blood Count Auto Diff Today E10.21 - Type 1 diabetes mellitus with diabetic nephropathy, E10.65 - Type 1 diabetes mellitus with hyperglycemia, E55.9 - Vitamin D deficiency, unspecified, K21.9 - Gastro-esophageal reflux disease without esophagitis, Z00.01 - Encounter for general adult medical examination with abnormal findings Lipid Panel Today E10.21 - Type 1 diabetes mellitus with diabetic nephropathy, E10.65 - Type 1 diabetes mellitus with hyperglycemia, E55.9 - Vitamin D deficiency, unspecified, K21.9 - Gastro-esophageal reflux disease without esophagitis, Z00.01 - Encounter for general adult medical examination with abnormal findings Comprehensive [place]. Panel Fast Today E10.21 - Type 1 diabetes mellitus with diabetic nephropathy, E10.65 - Type 1 diabetes mellitus with hyperglycemia, E55.9 - Vitamin D deficiency, unspecified, K21.9 - Gastro-esophageal reflux disease without esophagitis, Z00.01 - Encounter for general adult medical examination with abnormal findings TSH reflex Free T4 Today E10.21 - Type 1 diabetes mellitus with diabetic nephropathy, E10.65 - Type 1 diabetes mellitus with hyperglycemia, E55.9 - Vitamin D deficiency, unspecified, K21.9 - Gastro-esophageal reflux disease without esophagitis, Z00.01 - Encounter for general adult medical examination with abnormal findings Referrals [facility] Referral Z01.419 - Encounter for gynecological examination (general) (routine) without abnormal findings Coding Level of Care Code Est Pt Prev Care 18-39y([id number]) Diagnoses Encounter for general adult medical examination with abnormal findings Z00.01 Type 1 diabetes mellitus with hyperglycemia E10.65 Type 1 diabetes mellitus with nephropathy E10.21 Gastroesophageal reflux disease without esophagitis K21.9 Esophagitis presence: without esophagitis Vitamin D deficiency E55.9 Type 1 diabetes mellitus with diabetic microalbuminuria E10.29; R80.9 Diabetes mellitus complication status: with kidney complications Diabetes mellitus complication detail: with diabetic microalbuminuria senior living (current) use of insulin Z79.4 Class 1 obesity due to excess calories with serious comorbidity and body mass index (BMI) of 32.0 to 32.9 in adult E66.09; Z68.32 Obesity classification: adult class 1 (BMI 30 - 34.9) Serious obesity comorbidity presence: with serious comorbidity Body mass index: BMI 32.0-32.9 Additional Codes FANTASMA-7 Assessment Billing - FANTASMA-7 Assessment Tool: FANTASMA-7 Assessment [id number] ([id number])
== END 2023-09-07 12:11 | disposition home or self-care (01) ==
PROVIDERS: PCP Internal Medicine; Visit Provider Internal Medicine
DX: Z00.00 Encounter for general adult medical examination without abnormal findings (principal); E10.65 Type 1 diabetes mellitus with hyperglycemia; E10.21 Type 1 diabetes mellitus with diabetic nephropathy; E10.29 Type 1 diabetes mellitus with other diabetic kidney complication; Z79.4 Long term (current) use of insulin; Z68.32 Body mass index [BMI] 32.0-32.9, adult; E66.09 Other obesity due to excess calories; K21.9 Gastro-esophageal reflux disease without esophagitis; E55.9 Vitamin D deficiency, unspecified; R80.9 Proteinuria, unspecified
CPT/HCPCS: 99395

== ENCOUNTER 2023-09-07 12:15 | Outpatient (REF) | payer OTHER, SELFPAY ==
[2023-09-07 13:29] LABS: MANUAL DIFF FLAG NO
[2023-09-07 13:44] LABS: Basophils Absolute Auto 0.1 X10*3/uL (0.0-0.2); Basophils Percent Auto 0.6 % (0-2); Eosinophils Absolute Auto 0.2 X10*3/uL (0.0-0.4); Eosinophils Percent Auto 1.6 % (0-4); Hematocrit 41.9 % (37.0-47.0); Hemoglobin 14.7 g/dl (12.0-16.0); Imm Gran Abs Auto 0.06 X10*3/uL (0.00-0.03); Imm Gran Pct Auto 0.5 % (0.0-0.4); Lymphocytes Absolute Auto 4.3 X10*3/uL (1.2-4.9); Lymphocytes Percent Auto 34.2 % (20-40); Mean Corpuscular HGB Conc 35.1 g/dl (31.0-35.0); Mean Corpuscular Hemoglobin 31.7 pg (27.0-33.0); Mean Corpuscular Volume 90.3 fL (80.0-98.0); Mean Platelet Volume 11.3 fL (9.4-12.3); Monocytes Absolute Auto 0.9 X10*3/uL (0.1-1.2); Monocytes Percent Auto 7.2 % (2-11); Neutrophils Percent Auto 55.9 % (45-73); Platelet Count 394 X10*3/uL (160-400); Red Blood Count 4.64 X10*6/uL (4.20-5.50); Red Cell Distribution Width 11.6 % (11.0-16.0); White Blood Count 12.5 X10*3/uL (4.8-10.8)
[2023-09-07 13:51] LABS: Estimated Average Glucose 329 mg/dL; Hemoglobin A1c % 13.1 % (<6.0)
[2023-09-07 14:27] LABS: Creatinine Urine 51.01 mg/dL; Microalbum/Creatinine Ratio Ur 870.4 ug/mg cr (<30)
[2023-09-07 14:42] LABS: Glucose Fasting 480 mg/dL (60-99)
[2023-09-07 14:43] LABS: Alanine Aminotransferase 14 U/L (0-31); Albumin Level 4.1 g/dL (3.5-5.0); Alkaline Phosphatase 105 U/L (39-117); Anion Gap 21 (12-20); Aspartate Amino Transferase 11 U/L (5-31); Bilirubin Total 0.6 mg/dL (0.0-1.0); Blood Urea Nitrogen 10 mg/dL (9-16); Calcium 9.6 mg/dL (8.4-10.2); Carbon Dioxide 21 mmol/L (22-29); Chloride 96 mmol/L (96-108); Cholesterol 163 mg/dL (<200); Estimated Glomerular Filt Rate > 60; HDL Cholesterol 53 mg/dL (>40); LDL Cholesterol Calculated 92 mg/dL (<100); Potassium 4.2 mmol/L (3.3-5.1); Sodium 134 mmol/L (135-145); TSH reflex Free T4 2.98 uIU/mL (0.32-4.0); Total Protein 7.4 g/dL (6.5-8.0); Triglycerides 94 mg/dL (<150)
== END 2023-09-07 12:16 | disposition home or self-care (01) ==
LOC: HO.HMGCLDS 12:15
PROVIDERS: PCP Internal Medicine; Visit Provider Internal Medicine
DX: Z00.01 Encounter for general adult medical examination with abnormal findings (principal); E10.65 Type 1 diabetes mellitus with hyperglycemia; E10.21 Type 1 diabetes mellitus with diabetic nephropathy; K21.9 Gastro-esophageal reflux disease without esophagitis; E55.9 Vitamin D deficiency, unspecified
CPT/HCPCS: 36415; 80053; 80061; 82043; 82570; 83036; 84443; 85025

== ENCOUNTER 2023-11-17 13:33 | Outpatient (REF) | payer OTHER, SELFPAY ==
[2023-11-18 10:46] LABS: Bacterial Vaginosis PCR NEGATIVE (Negative); Candida Group PCR DETECTED (Not Detect); Candida glab krusei PCR NOT DETECTED (Not Detect); Trichomonas vaginalis PCR NOT DETECTED (Not Detect)
[2023-11-23 20:44] LABS: HPV mRNA E6/E7 rflx Not Detected (Not Detected)
== END 2023-11-17 13:34 | disposition home or self-care (01) ==
LOC: HO.LNP 13:33
PROVIDERS: PCP Internal Medicine; Visit Provider Advanced Practice Midwife
DX: Z01.419 Encounter for gynecological examination (general) (routine) without abnormal findings (principal); N89.8 Other specified noninflammatory disorders of vagina; G43.109 Migraine with aura, not intractable, without status migrainosus; N90.89 Other specified noninflammatory disorders of vulva and perineum
CPT/HCPCS: 0352U; 87624; 88142; 99385

== ENCOUNTER 2023-11-17 13:33 | Outpatient (AMB) | payer OTHER, SELFPAY ==
--- NOTE | 2023-11-17 13:37 | A.OFFVIS_ITS ---
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 This is her 1st pelvic exam. Doing well with concerns: Menses are regular, can very by a week. She reports the last usually 6 days heavy for 3-4 and has painful cramps for 2 days. She denies any pelvic pain, odor, or abnormal discharge. She reports irritation is more so noted when she has her menstrual cycle and is wearing pads. She is interested in control. Never has been sexually active and has no plans to be but would like to use this for her cycles. She reports improving her blood sugars she is type 1 diabetes, and is starting to exercise more with walking. Last lab work was not September TSH was 2.98 hemoglobin was 14.2, and creatinine was 0.95. She also reports that she has some skin irritation in the vulvar region with some peeling or sloughing of skin and some small cracks at times. This is her 1 st Pap smear. She denies any family history of breast, ovarian or colon cancer. She denies any contraindications to control such as: migraines with visual distortions in the past, no history of DVT or pulmonary emboli, high blood pressure, liver disease, thrombolic disorders, Lupus, +AME, breast cancer, or smoking. [facility] Medical History Type 1 diabetes mellitus with nephropathy Proteinuria Adult BMI 45.0-49.9 kg/sq m Vitamin D deficiency Type 1 diabetes mellitus with hyperglycemia Surgical History Hx of oral surgery Family History Father No problems noted. Mother No problems noted. 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 Cognitive needs: No Hearing needs: No Vision needs: No Female Reproductive History Menstrual Age of Menarche: 12 Duration of menses: 6-7 days control method: none Total pregnancies: 0 History of abnormal pap smear: No (first vaginal exam and pap) Review of Systems Const All systems reviewed & are unremarkable except as noted in HPI and below Reports as per HPI Eyes Reports no additional complaints ENT Reports no additional complaints Card Reports no additional complaints Resp Reports no additional complaints GI Reports as per HPI and Reports no additional complaints Reports as per HPI Musc Reports no additional complaints Skin/Breast Reports as per HPI Neuro Reports no additional complaints Psych Reports no additional complaints Endo Reports no additional complaints Lio/Lymph Reports no additional complaints Aller/Immun Reports no additional complaints Physical Exam Vital Signs: Last Vital Signs BP 110/82 11/17/23 13:38 BMI result Body Mass Index 33.8 Const General: cooperative, healthy appearing, no acute distress, well developed and alert Orientation/consciousness: patient oriented x3 HEENT Head: Yes normal to inspection Eyes General: appearance normal, both eyes and all related structures Neck Neck: Yes normal visual inspection Thyroid: Thyroid normal Chest Chest palpation & inspection: normal inspection of the chest and other (no pucke ring, dimpling, peau de orange, retraction, discharge, masses) Breast/axilla inspection: normal inspection of the breasts Breast/axilla palpation: normal palpation of the breasts Resp Effort & Inspection: normal respiratory effort GI Inspection: Yes normal to inspection Palpation (GI): Soft to palpation Rectal Exam - Female: deferred Other: External erythema extending from vulva to gluteal region with small fissure in the skin fold crease. General: Yes bladder normal to palpation External Female Exam: normal external appearance and normal appearance of the urethra Speculum Exam - Vagina: normal appearance of the vagina, normal palpation and normal vaginal discharge Speculum Exam - Cervix: normal appearance of the cervix and normal palpation Bimanual exam- vagina & uterus: normal bimanual exam, normal palpation, uterine size normal, bladder normal to palpation, normal palpation and non-tender Bimanual Exam- Adnexa, other: no masses Skin General skin exam: no rashes or lesions noted Rashes: no rashes Neuro General: patient oriented x3 Cognition (Neuro): normal cognition Extrem General: Yes normal to inspection Psych Attitude: cooperative Thought process: Normal thought process present Assessment & Plan Assessment & Plan (1) Encounter for well woman exam with routine gynecological exam: Code(s): Z01.419 - Encounter for gynecological examination (general) (routine) without abnormal findings (2) Migraine with aura: Code(s): G43.109 - Migraine with aura, not intractable, without status migrainosus Qualifiers: Status migrainosus presence: without status migrainosus (3) Vulvar irritation: Code(s): N90.89 - Other specified noninflammatory disorders of vulva and perineum (4) Counseling for initiation of control method: Code(s): Z30.09 - Encounter for other general counseling and advice on contraception Plan Discussed: Current recommendations for pap smears per ASCCP guidelines. Breast awareness and periodic breast exams. Maintain a healthy lifestyle including a well balanced diet and routine exercise. Use condoms for STI and prevention. Methods available for control without estrogen reviewed, risks benefits, side effects. She opts to choose the pill. Counseled on use side effects and warnings control hormone use warnings: go to ER if and loss of vision, blindness, severe headache, chest pain or difficulty breathing, severe abdominal pain, or any pain or swelling in an extremity. Plan pill check in 3 months. Await BV culture for plan of care. Initiate skin treatment for erythema and irritation, Rx sent to pharmacy. Reviewed use. Advised if no improvement to return to the office. Patient verbalizes understanding and agrees to the plan of care. She was given opportunity to ask questions and all questions were answered to the best of my ability. RTO in one year for annual applicator sprayer examination. This note is constructed using voice recognition software. While every effort has been made to ensure accuracy, blueprint reproducer errors may have been included. Orders: Orders Bacterial Vaginosis Panel Today N89.8 - Other specified noninflammatory disorders of vagina Pap Smear Today Z12.4 - Encounter for screening for malignant neoplasm of cervix Medications: New norethindrone (contraceptive) (Catrina) 0.35 mg PO DAILY 90 days 90 tabs 0RF clotrimazole-betamethasone 1-0.05 % apply externally a thin coat to the area 1 appl topical BID 7 days 45 grams 0RF itching Coding Level of Care Code New Pt Prev Care 18-39yr([id number] Diagnoses Encounter for well woman exam with routine gynecological exam Z01.419 Migraine with aura G43.109 Status migrainosus presence: without status migrainosus Vulvar irritation N90.89 Counseling for initiation of control method Z30.09
[2023-11-17 13:38] VITALS: BP 110/82; BMI 33.8
== END 2023-11-17 14:58 | disposition home or self-care (01) ==
PROVIDERS: PCP Internal Medicine; Visit Provider Advanced Practice Midwife
DX: Z01.419 Encounter for gynecological examination (general) (routine) without abnormal findings (principal); G43.109 Migraine with aura, not intractable, without status migrainosus; N90.89 Other specified noninflammatory disorders of vulva and perineum; Z30.09 Encounter for other general counseling and advice on contraception
CPT/HCPCS: 99385

== ENCOUNTER 2024-02-22 14:22 | Outpatient (AMB) | payer OTHER, SELFPAY ==
--- NOTE | 2024-02-22 13:09 | A.OFFVIS_ITS ---
Vital Signs 02/22/24 14:37 Height 5 ft 3 in Weight 189 lb 9.561 oz BMI 33.6 BP 116/78 Blood Pressure Location Rt brachial Pulse 94 Pulse Source Pulse Oximeter Intake Visit Reasons: T1DM/LVM Intake Note: Patient presents today to re-establish treatment for Type 1 Diabetes Mellitus: Last Diabetic eye exam was on: DUE Last Podiatry exam was on: Does not see a Circular Stuffer Most recent HbA1c: >14.0%, 02/22/2024 Random Glucose- 299 mg/dL, Today Medical Lab Technician Required: No Accompanied by: Self / Same As Patient Allergies Sulfa (Sulfonamide Antibiotics) [SULFA (SULFONAMIDE ANTIBIOTICS)] Allergy (Intermediate, Verified 02/22/24 14:28) HIVES, bad rash naproxen Adverse Reaction (Severe, Verified 02/22/24 14:28) Unknown HPI Comments Details: Patient is 29 yo female with DM type 1 diagnosed 09/2011 here for follow up management. Patient was last seen by in 09/23/2022 and by Chel CHIANG 11/2022. Prior to being treated at [facility] endocrinology followed at [facility] and they did do testing to confirm she was type 1. She has been noncompliant with insulin regime which she attributes to depression secondary to multiple deaths in her family. She has now been more consistent with taking insulin on a regular basis. Her meter was damage yesterday and she requests a new 1. She has been running in the 200 plus range but has had several lows at 03:00. Past medical history:DM1,low vitamin d, obesity Micro and macrovascular complications: microalbuminuria. She is followed by a cake froster on an annual basis for nephropathy with normal EGFR in his on low- dose HEIDI-inhibitor Diabetes medications: She uses a bolus calculator on her phone with insulin to carb ratio 1:6 in the past but she has been using 1:10, sensitivity 1:11 but has been using 1-15. She purchased a new phone and did not carry over the correct settings. 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 Mother No problems noted. 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 Absence of acromegalic features. Neck exam reveals nl size thyroid about 15 gms. No thyroid nodules palpable. Heart S1 S2, Reg R/R. No M/R G. Skin exam reveals absence of vitiligo or acanthosis nigricans. No edema Visual exam of foot performed. No ulcerations or open lesions. No inter digit maceration or fissuring. + onychomycosis on 1st toe bilaterally, no callouses. Sensation diminished to monofilament exam. Vibratory sensation is normal with 128 Hz tuning fork. Results AMB Hemoglobin A1c AMB Hemoglobin A1c > 14.0 % Last Edit by AFRICA Randhawa on 02/22/24 14 :51 Results Reviewed Results Reviewed: Laboratory Last Values Glucose (Clinic) 299 mg/dL (60-115) H 02/22/24 14:42 Hgb A1c (Clinic) > 14.0 % (4.0-6.0) H 02/22/24 14:44 Laboratory Tests 09/07/23 12:20 Estimated GFR > 60 Hemoglobin A1c % 13.1 H Triglycerides 94 Cholesterol 163 LDL Cholesterol, Calc 92 HDL Cholesterol 53 TSH 2.98 Urine Creatinine 51.01 Urine Microalbumin 444.0 Microalb/Creat Ratio 870.4 H Assessment & Plan Assessment & Plan (1) Type 1 diabetes mellitus: Code(s): E10.9 - Type 1 diabetes mellitus without complications Category: Medical Qualifiers: Diabetes mellitus complication detail: with diabetic microalbuminuria Diabetes mellitus complication status: with kidney complications Qualified Code(s): E10.29 - Type 1 diabetes mellitus with other diabetic kidney complication; R80.9 - Proteinuria, unspecified Plan: 29-year-old female with a history of type 1 diabetes with poor glycemic control on basal-bolus insulin with known microvascular complications namely micro albuminuria. At her last visit over a year ago she was recommend to go on a glucose sensor so that we may adjust her basal bolus insulin. She had problems with bruising and rash with the sensor and prefers to use her glucometer. She is willing to test pre meal and 2 hours postprandial. Due to longstanding poorly-controlled diabetes and nocturnal hypoglycemia we will change her to degludec U 200 insulin in order to smooth out her numbers. She will return to clinic in 4 weeks' time to review her readings and adjust insulin to carb and sensitivity accordingly. She is referred to Ophthalmology here at [facility] [place] and she will contact well since for recommendations of senior radiation therapist. She has glucagon nasal spray and unopened/unexpired test strips. Orders: Orders AMB Hemoglobin A1c 02/22/24 E10.29 - Type 1 diabetes mellitus with other diabetic kidney complication, R80.9 - Proteinuria, unspecified Medications: New lancets (FreeStyle Lancets) six times daily 200 ea 11RF insulin degludec (Tresiba FlexTouch U-200 insulin) 40 units (0.2 mL) subcut DAILY 9 mL 6RF E10.29 - Type 1 diabetes mellitus with other diabetic kidney complication, R80.9 - Proteinuria, unspecified Changed From blood sugar diagnostic USE FOUR TIMES A DAY DIRECTED 120 ea 11RF E10.65 - Type 1 diabetes mellitus with hyperglycemia, E10.21 - Type 1 diabetes mellitus with diabetic nephropathy To blood sugar diagnostic (FreeStyle Lite Strips) USE FOUR TIMES A DAY DIRECTED 120 ea 11RF E10.65 - Type 1 diabetes mellitus with hyperglycemia, E10.21 - Type 1 diabetes mellitus with diabetic nephropathy From insulin lispro 11 - 25 units (0.11 - 0.25 mL) subcut QID 15 mL 4RF E10.21 - Type 1 diabetes mellitus with diabetic nephropathy To insulin lispro 11 - 25 units (0.11 - 0.25 mL) subcut QID 15 mL 4RF E10.21 - Type 1 diabetes mellitus with diabetic nephropathy Patient Instructions: The patient was counseled to achieve a target A1C of 7% (154 avg). Fasting blood sugars should be 90-130 in the morning and less than 180 two hours after meals. Reviewed the relationship between poor diabetic control and the developement of complications The patient was counseled to always carry a source of sugar and on the rule of 15's: Take 3 glucose tablets and repeat again in 15 minutes if blood sugar is not in normal range. Continue to repeat every 15 minutes until blood sugar is normal. The patient was counseled to wear closed toe shoes, never walk barefooted and to inspect the feet daily. For any signs of infection or open wound patient should notify PCP or go to urgent care. Symptoms of DKA were reviewed: early: frequent urination, dry mouth, fatigue, feeling ill, severe symptoms: ketones in the urine, abdominal pain, nausea, vomiting and weakness. It is important to hydrate with sugar free liquids every 30 minutes and bring the sugars down to normal levels. Coding Level of Care Code Est Pt Level 5 (54729) Complex EM visit Add On G2211 Diagnoses Type 1 diabetes mellitus with diabetic microalbuminuria E10.29; R80.9 Diabetes mellitus complication detail: with diabetic microalbuminuria Diabetes mellitus complication status: with kidney complications Time Spent (min) 60 Comment Time spent reviewing labs/provider notes, face to face, chart doc
[2024-02-22 14:37] VITALS: BP 116/78; PULSE 94; BMI 33.6
[2024-02-22 14:46] LABS: Glucose, Whole Blood 299 mg/dL (60-115)
== END 2024-02-22 15:30 | disposition home or self-care (01) ==
PROVIDERS: PCP Internal Medicine; Visit Provider Nurse Practitioner Adult Health
DX: E10.29 Type 1 diabetes mellitus with other diabetic kidney complication (principal); R80.9 Proteinuria, unspecified
CPT/HCPCS: 99215; G2211

== ENCOUNTER → 2024-02-22 14:22 | Outpatient (BNVA) | payer OTHER, SELFPAY | PROVIDERS: PCP Internal Medicine; Visit Provider Nurse Practitioner Adult Health | DX: E10.29 Type 1 diabetes mellitus with other diabetic kidney complication (principal); R80.9 Proteinuria, unspecified | CPT/HCPCS: 82947; 83036; 99212 ==

== ENCOUNTER 2024-04-16 09:23 | Outpatient (AMB) | payer OTHER, SELFPAY ==
--- NOTE | 2024-04-16 09:29 | MHC.OFFWIV ---
Intake Vital Signs 04/16/24 09:31 Height 5 ft 3 in Weight 191 lb BMI 33.8 BP 110/70 Blood Pressure Location Lt brachial Position Sitting Pulse 115 H Pulse Source Pulse Oximeter Temp 98.6 F Temp Source Oral Pulse Oximetry (%) 98 Oxygen Delivery Method Room Air Intake Visit Reasons: EP bad cough for over 3 weeks Intake Note: Patient here for cough that has been present for over 3 weeks now w/no improvement. Patient Tobacco Use Status: Never used Tobacco Allergies Sulfa (Sulfonamide Antibiotics) [SULFA (SULFONAMIDE ANTIBIOTICS)] Allergy (Intermediate, Verified 04/16/24 09:32) HIVES, bad rash naproxen Adverse Reaction (Severe, Verified 04/16/24 09:32) Unknown Do you need a note to return to daycare/school/sports/work: No HPI EP bad cough for over 3 weeks HPI Details This note is constructed using voice recognition software. While every effort has been made to ensure accuracy, sexual assault response coordinator errors may have been included. The patient is a 29 year old female who presents to the clinic today with cough for the past 3 weeks. She denies fever, chills, shortness of breath, or any other URI symptoms. She reports that she has taken 4 COVID tests which have all been negative. She has tried multiple cough syrups which have not helped. The cough is dry in nature she is not getting any sputum up. [facility] Medical History Type 1 diabetes mellitus with nephropathy Proteinuria Adult BMI 45.0-49.9 kg/sq m Vitamin D deficiency Type 1 diabetes mellitus with hyperglycemia Surgical History Hx of oral surgery Family History Father No problems noted. Mother No problems noted. 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 Cognitive needs: No Hearing needs: No Vision needs: No Female Reproductive History Menstrual Age of Menarche: 12 Review of Systems Const All systems reviewed & are unremarkable except as noted in HPI and below Physical Exam Vital Signs: Last Vital Signs Temp 98.6 F 04/16/24 09:31 Pulse 115 H 04/16/24 09:31 BP 110/70 04/16/24 09:31 Pulse Ox 98 04/16/24 09:31 Oxygen Delivery Method Room Air 04/16/24 09:31 BMI result Body Mass Index 33.8 Const General: cooperative, healthy appearing, comfortable and no acute distress Orientation/consciousness: patient oriented x3 Limitations: no limitations HEENT Head: Yes normal to inspection Ears: hearing grossly normal bilaterally, external ears normal and TM abnormal retracted General nose exam: Normal external nose present, No nasal discharge present and Abnormal mucous membranes and turbinates present boggy and pale Face and sinus: Yes normal facial exam and Yes sinuses nontender Mouth: Normal oral and palatal mucosa present and moist mucous membranes Throat: Yes tonsils normal, Yes uvula midline, Yes posterior oropharynx abnormal (Erythema), Yes postnasal drainage and Yes cobblestoning Eyes General: appearance normal, both eyes and all related structures Neck Neck: Yes normal visual inspection Resp Effort & Inspection: normal respiratory effort, able to speak in complete sentences, Actively coughing, no respiratory distress, not tachypneic, no tripod positioning and no use of accessory muscles Auscultation: clear to auscultation bilaterally Cardio Rate: regular rate Rhythm: regular rhythm Heart sounds: normal S1 and S2 Skin General skin exam: no rashes or lesions noted Neuro General: patient oriented x3 Extrem General: Yes normal to inspection and Yes no clubbing, cyanosis or edema Assessment & Plan Assessment & Plan (1) Allergic rhinitis: Code(s): J30.9 - Allergic rhinitis, unspecified Qualifiers: Allergic rhinitis trigger: unspecified Allergic rhinitis seasonality: unspecified Qualified Code(s): J30.9 - Allergic rhinitis, unspecified Plan: Supportive measures encouraged and reviewed. Advised patient to try a Flonase nasal spray and second-generation antihistamine such as Zyrtec, Claritin, Soni or similar. Advised consideration of sinus rinse if needed. Advised patient to follow up with primary care provider with worsening or failure to resolve. Plan See above for full details and plan. Coding Level of Care Code Est Pt Level 3 (07464) Diagnoses Allergic rhinitis, unspecified seasonality, unspecified trigger J30.9 Allergic rhinitis trigger: unspecified Allergic rhinitis seasonality: unspecified
[2024-04-16 09:31] VITALS: BP 110/70; PULSE 115; TEMP 37; O2SAT 98; BMI 33.8
== END 2024-04-16 11:19 | disposition home or self-care (01) ==
PROVIDERS: PCP Internal Medicine; Visit Provider Registered Nurse
DX: J30.9 Allergic rhinitis, unspecified (principal)

== ENCOUNTER → 2024-04-16 09:23 | Outpatient (BNVA) | payer OTHER, SELFPAY | PROVIDERS: PCP Internal Medicine; Visit Provider Registered Nurse | DX: J30.9 Allergic rhinitis, unspecified (principal) | CPT/HCPCS: 99212 ==

== ENCOUNTER 2024-04-26 12:41 | Outpatient (AMB) | payer OTHER, SELFPAY ==
[2024-04-26 12:43] VITALS: BP 102/62; BMI 33.7
--- NOTE | 2024-04-26 12:43 | A.OFFVIS_ITS ---
Vital Signs 04/26/24 12:43 Height 5 ft 3 in Weight 190 lb 6 oz BMI 33.7 BP 102/62 Blood Pressure Location Lt brachial Position Sitting Intake Visit Reasons: 3 month pill check Intake Note: no c/o It Risk And Assurance Senior Manager Required: No Shipping And Receiving Supervisor: Shipping And Receiving Supervisor Present Allergies Sulfa (Sulfonamide Antibiotics) [SULFA (SULFONAMIDE ANTIBIOTICS)] Allergy (Intermediate, Verified 04/26/24 12:48) HIVES, bad rash naproxen Adverse Reaction (Severe, Verified 04/26/24 12:48) Unknown Is last menstrual period known: Yes Last menstrual period: 04/01/24 Post menopausal: No HPI Comments Details: Patient is here today for a pill check currently on Meredith due to history of migraines with aura. She reports doing well no issues taking the pill, her cycles are shorter and less crampy. She is happy with the new pill adjustments. [facility] Medical History Type 1 diabetes mellitus with nephropathy Proteinuria Adult BMI 45.0-49.9 kg/sq m Vitamin D deficiency Type 1 diabetes mellitus with hyperglycemia Surgical History Hx of oral surgery Family History Father No problems noted. Mother No problems noted. 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 Cognitive needs: No Hearing needs: No Vision needs: No Female Reproductive History Menstrual Age of Menarche: 12 Date of last menstrual period: 04/01/24 Review of Systems Const All systems reviewed & are unremarkable except as noted in HPI and below Endo Reports no additional complaints Physical Exam Vital Signs: Last Vital Signs BP 102/62 04/26/24 12:43 BMI result Body Mass Index 33.7 Const General: cooperative, healthy appearing and no acute distress Psych Appearance: well kempt Attitude: cooperative Thought process: Normal thought process present Assessment & Plan Assessment & Plan (1) Surveillance for control, oral contraceptives: Code(s): Z30.41 - Encounter for surveillance of contraceptive pills Plan discussed: control hormone use warnings: go to ER if and loss of vision, blindness, severe headache, chest pain or difficulty breathing, severe abdominal pain, or any pain or swelling in an extremity.Rx sent in. Has annual exam scheduled for February 2025. All of her questions and concerns were addressed to the best of my ability and shared decision making. She is agreeable to the plan of care. This note is constructed using voice recognition software. While every effort has been made to ensure accuracy, maintenance services dispatcher errors may have been included. Medications: Refilled norethindrone (contraceptive) (Catrina) 0.35 mg PO DAILY 90 days 90 tabs 0RF Coding Level of Care Code Est Pt Level 3 (54618) Diagnoses Surveillance for control, oral contraceptives Z30.41
== END 2024-04-26 13:10 | disposition home or self-care (01) ==
LOC: HO.HWS 12:42
PROVIDERS: PCP Internal Medicine; Visit Provider Advanced Practice Midwife
DX: Z30.41 Encounter for surveillance of contraceptive pills (principal)
CPT/HCPCS: 99213

== ENCOUNTER → 2024-04-26 12:41 | Outpatient (BNVA) | payer OTHER, SELFPAY | PROVIDERS: PCP Internal Medicine; Visit Provider Advanced Practice Midwife | DX: Z30.41 Encounter for surveillance of contraceptive pills (principal) | CPT/HCPCS: 99212 ==

== ENCOUNTER 2024-06-12 08:00 | Outpatient (REF) | payer OTHER, SELFPAY ==
--- NOTE | ~2024-06-12 | XR_ITS ---
EXAMINATION: XR CHEST CLINICAL INFORMATION: R05.9 - Cough, unspecified COMPARISON: X-ray dated September 06, 2014 TECHNIQUE: 2 views of the chest were obtained. FINDINGS: No consolidation, pleural effusion or pneumothorax. No hyperinflation. Cardiomediastinal silhouette is normal. Osseous structures are intact. S-shaped curvature of the thoracic spine. XR/XR chest 2V IMPRESSION: No acute airspace disease. Electronically signed by: Deshawn Wilks MD 06/12/2024 09:37 AM VINICIO
== END 2024-06-12 08:01 | disposition home or self-care (01) ==
LOC: HO.HMGCX 08:00
PROVIDERS: PCP Internal Medicine; Visit Provider Physician Assistant
DX: R05.1 Acute cough (principal); R50.9 Fever, unspecified; R51.9 Headache, unspecified; R42 Dizziness and giddiness; R11.0 Nausea
CPT/HCPCS: 71046; 99212

== ENCOUNTER 2024-06-12 08:00 | Outpatient (AMB) | payer OTHER, SELFPAY ==
[2024-06-12 08:11] VITALS: BP 110/60; PULSE 127; TEMP 37.7; O2SAT 98; BMI 34.6
--- NOTE | 2024-06-12 08:11 | MHC.OFFWIV ---
Intake Vital Signs 06/12/24 08:11 Height 5 ft 3 in Weight 195 lb 6 oz BMI 34.6 BP 110/60 Blood Pressure Location Lt brachial Position Sitting Pulse 127 H Pulse Source Pulse Oximeter Temp 99.9 F Temp Source Oral Pulse Oximetry (%) 98 Intake Visit Reasons: EP-cough, headaches, dizziness, nauseas Intake Note: pt is here for cough causing dizziness, headaches Patient Tobacco Use Status: Never used Tobacco Allergies Sulfa (Sulfonamide Antibiotics) [SULFA (SULFONAMIDE ANTIBIOTICS)] Allergy (Intermediate, Verified 06/12/24 08:22) HIVES, bad rash naproxen Adverse Reaction (Severe, Verified 06/12/24 08:22) Unknown Do you need a note to return to daycare/school/sports/work: Yes HPI HPI Comments History of Present Illness Details Patient is a 29yo diabetic F who presents to office with cough No hx of smoking or asthma Cough ongoing x a few days She said last time she had this cough it was allergies and she used allergy spray Allergy medicine isnt helping Father sick as well and mother was on antibiotics for bronchitis/sinusitis Causing headaches and dizziness Cough produces no phlegm + runny nose/congestion + fever/chills + body aches with cough but none at baseline + fatigue No post-tussis emesis She said breathing is fine when not coughing PFSH Medical History Type 1 diabetes mellitus with nephropathy Proteinuria Adult BMI 45.0-49.9 kg/sq m Vitamin D deficiency Type 1 diabetes mellitus with hyperglycemia Surgical History Hx of oral surgery Family History Father No problems noted. Mother No problems noted. 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 Cognitive needs: No Hearing needs: No Vision needs: No Female Reproductive History Menstrual Age of Menarche: 12 Review of Systems Const Reports chills, Reports fever(s) and Reports headache(s) Eyes Denies blurry vision ENT Denies vertigo, Reports dizziness, Denies otalgia, Reports headache(s), Reports nasal congestion, Reports nasal discharge and Denies sore throat Card Denies chest pain and Denies syncope Resp Denies change in phlegm color, Reports chest congestion, Reports cough, Denies hemoptysis, Denies excessive phlegm production and Reports pain with cough Musc Denies myalgias Neuro Denies vertigo, Reports dizziness, Denies syncope and Reports headache(s) Physical Exam Vital Signs: Last Vital Signs Temp 99.9 F 06/12/24 08:11 Pulse 127 H 06/12/24 08:11 BP 110/60 06/12/24 08:11 Pulse Ox 98 06/12/24 08:11 BMI result Body Mass Index 34.6 General: Non-toxic, NAD. Speaking full sentences. Skin: Warm dry throughout Eye: EOMI HENT: Airway patent. Uvula midline. No pharyngeal erythema or edema. No FIELD SUPERVISOR SEED PRODUCTION. Bilateral canals clear. TM non-erythematous, non-bulging. No TM perforation or hemotympanum noted. Respiratory: slight decreased throughout but no wheezes, rales or rhonchi Cardiac: tachycardic rate, regular rhythm. No murmur MSK: Full ROM extremities. Neurology: Alert. No aphasia or facial droop. Gait without abnormality Psych: Good mood and affect Assessment & Plan Assessment & Plan (1) Cough: Code(s): R05.9 - Cough, unspecified Qualifiers: Cough type: acute Qualified Code(s): R05.1 - Acute cough Plan: Patient seen and evaluated. Chest xray: i viewed and saw no infiltrate. Discussed results with pt. Gregg for cough We discussed viral swab but she declined as it would not foreign exchange position clerk at this time No prednsone indicated a this time as 98% on room air and no wheeze noted Disscussed gregg eddi for cough and f/u with PCP monitor sugars while sick I rechecked HR and it was 92 prior to discharge and O2 97% Patient gave verbal understanding and had no additional questions or concerns at time of discharge All questions answered Orders: Orders XR chest 2V Today R05.9 - Cough, unspecified Medications: New benzonatate 100 mg PO BID-TID PRN 14 caps 0RF cough Coding Level of Care Code Est Pt Level 3 (53108) Diagnoses Acute cough R05.1 Cough type: acute
== END 2024-06-12 09:12 | disposition home or self-care (01) ==
PROVIDERS: PCP Internal Medicine; Visit Provider Physician Assistant
DX: R05.1 Acute cough (principal)

== ENCOUNTER → 2024-06-12 08:51 | Outpatient (BNV) | payer OTHER, SELFPAY | PROVIDERS: PCP Internal Medicine; Visit Provider Radiology Diagnostic Radiology | DX: R05.9 Cough, unspecified (principal) | CPT/HCPCS: 71046 ==

== ENCOUNTER 2024-07-10 12:39 | Outpatient (AMB) | payer OTHER, SELFPAY ==
[2024-07-10 12:47] VITALS: BP 112/70; PULSE 95; BMI 34.4
--- NOTE | 2024-07-10 12:47 | A.OFFVIS_ITS ---
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 Patient was last seen by myself 02/2024 at which time A1C was 14%. Prior to being treated at [facility] endocrinology followed at [facility] and she reports they did testing to confirm she was type 1. She has been taking Tresiba once daily consistently Past medical history:DM1,low vitamin d, obesity Micro and macrovascular complications: microalbuminuria. She is followed by a unix systems administrator on an annual basis for nephropathy with normal EGFR in his on low- dose HEIDI-inhibitor Diabetes medications: She uses a bolus calculator on her phone with insulin to carb ratio 1:7 , sensitivity 1:11. Tresiba 40 units Humalog: above correction/carb ratio has only been taking once daily as she hasn't been hungry secondary to depression. She recently suffered some losses, of cousin, best friend's dog and close friend lost a baby. She has not sought out mental health counseling. Not suicidal. 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 Mother No problems noted. 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 Absence of acromegalic features. Neck exam rev eals nl size thyroid about 15 gms. No thyroid nodules palpable. No carotid bruits present. Lungs CTA. Heart S1 S2, Reg R/R. No M/R G. Skin exam reveals absence of vitiligo or acanthosis nigricans. No edema Visual exam of foot performed. No ulcerations or open lesions. No inter digit maceration or fissuring. + onychomycosis great toe, no callouses. Sensation intact to monofilament exam. Vibratory sensation is normal with 128 Hz tuning fork. Results AMB Hemoglobin A1c AMB Hemoglobin A1c 11.9 % Last Edit by AFRICA Randhawa on 07/10/24 13:0 4 Results Reviewed Results Reviewed: Laboratory Last Values Glucose (Clinic) 355 mg/dL (60-115) H* 07/10/24 12:55 Hgb A1c (Clinic) 11.9 % (4.0-6.0) H 07/10/24 12:49 Assessment & Plan Assessment & Plan (1) Type 1 diabetes mellitus with hyperglycemia: Code(s): E10.65 - Type 1 diabetes mellitus with hyperglycemia Category: Medical Plan: 29-year-old female with a history of type 1 diabetes with poor glycemic control on basal-bolus insulin with known microvascular complications namely micro albuminuria. At her last visit over a year ago she was recommend to go on a glucose sensor so that we may adjust her basal bolus insulin which she declined. She has been checking her sugar more frequently and most are in the elevated range. She reports she has been taking her bolus insulin but only takes insulin pre meal once as she does not eat most of the day. We discussed the need for her to obtain mental health counseling and she will review her insurance and obtain a counselor. She is reluctant to go on an antidepressant but I advised her that at least for the short term that that would be the best course of action and that she could investigate a counselor who also uses EMDR. We discussed the need to eat 3 times per day and she will add a yogurt for breakfast, string cheese in a piece of fruit for lunch and cover her 3 meals per day. At length discussed that her continued high readings we will place her at great risk for diabetic complications including kidney failure, blindness of the eyes, heart disease coma or . She expressed understanding and we will follow up in 3 weeks' time to review her numbers. Orders: Orders AMB Hemoglobin A1c 07/10/24 E10.29 - Type 1 diabetes mellitus with other d iabetic kidney complication, R80.9 - Proteinuria, unspecified Referrals Podiatry Referral E10.65 - Type 1 diabetes mellitus with hyperglycemia Medications: Changed From acetone (urine) test (Ketostix strips) As directed ea 11RF E10.21 - Type 1 diabetes mellitus with diabetic nephropathy To acetone (urine) test (Ketostix strips) bid prn nausea, vomiting, illness glucose over 300 25 ea 11RF E10.21 - Type 1 diabetes mellitus with diabetic nephropathy From insulin degludec (Tresiba FlexTouch U-200 insulin) 40 units (0.2 mL) subcut DAILY 9 mL 6RF E10.29 - Type 1 diabetes mellitus with other diabetic kidney complication, R80.9 - Proteinuria, unspecified To insulin degludec (Tresiba FlexTouch U-200 insulin) 42 units (0.21 mL) subcut DAILY 30 days 6.3 mL 6RF E10.29 - Type 1 diabetes mellitus with other diabetic kidney complication, R80.9 - Proteinuria, unspecified Refilled glucagon 3 mg/actuation (Baqsimi) Galt once for severe hypoglycemia when patient cannot self-treat with glucose. Afterwards turn on side. May repeat after 15 minutes if patient does not respond. 3 mg intranasal ONCE 30 days 2 ea 6RF severe hypoglycemia E11.65 - Type 2 diabetes mellitus with hyperglycemia Discontinued insulin glargine U-300 conc (Toujeo Max U-300 SoloStar) Discontinued Reason: Doctor's Order 40 units (0.1333 mL) subcut DAILY 6 mL 5RF E10.21 - Type 1 diabetes mellitus with diabetic nephropathy Patient Instructions: Take 15 carb carbohydrate grams to treat a low sugar (3-4 glucose tablets, half a glass of juice or 15 carbohydrate grams of soft candy such as gummie snacks). Recheck your sugar in 15 minutes and re-treat again with 15 carbohydrate grams if low or still with symptoms. Do not drive a car or operate machinery if you do not know what your blood sugar is, if it is low or in excess of 300. The patient was counseled to achieve a target A1C of 7% (154 avg). Fasting blood sugars should be 90-130 in the morning and less than 180 two hours after meals. Reviewed the relationship between poor diabetic control and the development of complications. Check your feet daily looking for any signs of infection, drainage, redness, ulceration and seek medical attention if this occurs. Break in shoes gradually and do not wear open-toed shoes or walk stocking footed or barefooted. Symptoms of DKA (diabetic ketoacidosis): early: frequent urination, dry mouth, fatigue, feeling ill, severe symptoms: ketones in the urine, abdominal pain, nausea, vomiting and weakness. It is important to hydrate with sugar free liq uids every 15-30 minutes and bring the sugars down to normal levels. If you are moderate or severe with ketones or unable to bring glucose to less than 200, go to the emergency room. Coding Level of Care Code Est Pt Level 5 (71439) Complex EM visit Add On G2211 Diagnoses Type 1 diabetes mellitus with hyperglycemia E10.65 Time Spent (min) 45 Comment Time spent reviewing labs/provider notes, face to face, chart doc
[2024-07-10 12:59] LABS: Glucose, Whole Blood 355 mg/dL (60-115)
--- OUTSIDE RECORDS SUMMARY | 2024-07-10 13:07 | XMS_ITS | Clinical Summary ---
Author Organization [facility] Facility Address [address] [place] [id number] Care Team Providers Care Cop Breaker Name Role Phone Robert Taylor MD Primary Care Provider [phone] Allergies Active Allergy Reactions Criticality Noted Date Comments Sulfa Antibiotics Other (see comments) 06/04/20 21 Medications Cholecalciferol 125 MCG (5000 UT) tablet Take 1 tablet by mouth 1 (one) time each day Active Insulin Lispro, 1 Unit Dial, 100 UNIT/ML solution pen-injector Comments: Patient Notes: Sliding scale Active Glucagon, rDNA, (Glucagon Emergency) 1 MG kit See Instructions, # 2 each, Refills 11, Tot. Refills 11, Maintenance, for severe low blood sugar in type 1 diabetes, 04/27/17 8:54:48, Compound 7 Active Toujeo Max SoloStar 300 UNIT/ML solution pen-injector INJECT 45 UNITS UNDER THE SKIN ONCE A DAY 1 Active lisinopril 5 MG tabletIndications :Type 1 diabetes mellitus, not otherwise specified (HCC),Urine microalbumin detected Take 1 tablet (5 mg total) by mouth 1 (one) time each day 90 tablet 3 4 10/26/19 25 Active Active Problems Problem Noted Date Diagnosed Date Urine microalbumin detected 06/04/2021 Assessment & Plan (10/26/2023 8:22 PM EDT): Urine alb/creat ration elevated at 870.4 as of On Lisinopril 5 mg QD Blood pressure very well controlled on the low side at 108/80 Need to optimize DM control to improve this Not a candidate for SGLT2i due to Type 1 DM Will continue to monitor Type 1 diabetes mellitus 06/04/2021 Assessment & Plan (10/26/2023 8:30 PM EDT): Poor DM control, HgbA1c elevated at 13.1% as of 09/07/23 Need to improve this in order to prevent kidney disease Recommend referral to Endocrinology for management Family History Medical History Relation Comments Kidney disease Mother Relation Status Comments Father Unknown Mother Alive Social History Tobacco Use Types Packs/Day Years Used Date Smoking Tobacco: Never Smokeless Tobacco: Never Tobacco Cessation:Counseling Given: Not Answered Alcohol Use Standard Drinks/Week Comments Yes 0 (1 standard drink = 0.6 oz pure alcohol) Alcoholic Drinks/day: Occasional social drink Comments Unknown Sex and Gender Information Value Date Recorded Sex Assigned at Not on file Legal Sex Female 4:52 PM EST Gender Identity Not on file Sexual Orientation Not on file Last Filed Vital Signs Vital Sign Reading Time Taken Comments Blood Pressure 108/80 10/26/2023 2:06 PM EDT Pulse 109 10/26/2023 2:06 PM EDT Temperature - - Respiratory Rate - - Oxygen Saturation 100% 06/08/2021 2:06 PM EST Inhaled Oxygen Concentration - - Weight 81.6 kg (180 lb) 10/26/2023 2:06 PM EDT Height 160 cm (5' 3 ) 10/26/2022 4:05 PM EDT Body Mass Index 31.89 10/26/2022 4:05 PM EDT Plan of Treatment Upcoming Encounters Date Type Department Care Team (Late st Contact Info) Description 10/25/2024 1:30 PM EDT Office Visit [facility] [address] [phone] Graciela Tsai ARNP [address] [phone] Health Maintenance Due Date Last Done Comments Diabetes: Hemoglobin A1C 07/06/2020 Diabetes: Ophthalmology Exam 07/06/2020 12/14/2006 Diabetes: Pedal Pulse Checked 07/06/2020 Diabetes: Sensory Foot Exam 07/06/2020 Diabetes: Visual Foot Exam 07/06/2020 Influenza Vaccine (#1) 2024 Hepatitis B Vaccine Completed 1993, 1993, 1993 Pneumococcal Vaccine: Pediatrics (0 to 5 Years) and At-Risk Patients (6 to 64 Years) Aged Out No longer eligible b ased on patient's age to complete this topic Insurance Care Teams Cop Breaker Relationship Specialty Start Date End Date Robert Taylor MD [address] [place] [id number] PCP - General 06/16/20
== END 2024-07-10 13:35 | disposition home or self-care (01) ==
PROVIDERS: PCP Internal Medicine; Visit Provider Nurse Practitioner Adult Health
DX: E10.29 Type 1 diabetes mellitus with other diabetic kidney complication (principal); R80.9 Proteinuria, unspecified

== ENCOUNTER → 2024-07-10 12:39 | Outpatient (BNVA) | payer OTHER, SELFPAY | PROVIDERS: PCP Internal Medicine; Visit Provider Nurse Practitioner Adult Health | DX: E10.65 Type 1 diabetes mellitus with hyperglycemia (principal); E10.29 Type 1 diabetes mellitus with other diabetic kidney complication; E55.9 Vitamin D deficiency, unspecified; E66.9 Obesity, unspecified; R80.9 Proteinuria, unspecified | CPT/HCPCS: 82947; 83036; 99212 ==

== ENCOUNTER 2024-08-30 14:55 | Outpatient (AMB) | payer OTHER, SELFPAY ==
[2024-08-30 14:57] VITALS: BP 110/70; PULSE 128; TEMP 37.1; O2SAT 98
--- NOTE | 2024-08-30 14:57 | MHC.OFFWIV ---
Intake Vital Signs 08/30/24 14:57 Weight 187 lb BP 110/70 Blood Pressure Location Rt brachial Position Sitting Pulse 128 H Pulse Source Pulse Oximeter Temp 98.7 F Temp Source Oral Pulse Oximetry (%) 98 Oxygen Delivery Method Room Air Intake Visit Reasons: EP coughing, sneezing, vomiting(high sugar ^200) Intake Note: Patient here for cough, sneezing,vomiting and elevated sugars that she last checked about 10-15mins ago. Patient Tobacco Use Status: Never used Tobacco Allergies Sulfa (Sulfonamide Antibiotics) [SULFA (SULFONAMIDE ANTIBIOTICS)] Allergy (Intermediate, Verified 08/30/24 14:58) HIVES, bad rash naproxen Adverse Reaction (Severe, Verified 08/30/24 14:58) Unknown Do you need a note to return to daycare/school/sports/work: Yes HPI HPI Comments History of Present Illness Details History of Present Illness The patient is a 29-year-old female presenting with elevated blood glucose levels and symptoms suggesting diabetic ketoacidosis. Her blood sugar is elevated at 404 mg/dL, recorded 15 minutes prior to presentation, and has been above 200 mg/dL most of the day. She also reports nausea, vomiting (20 minutes prior to visit), and increased thirst and urination. With a history of Type 1 Diabetes Mellitus, she administers long-acting insulin at a dose of 42 units nightly, up from the previous 40 units. She has not used her usual rapid-acting insulin today. Additionally, she experiences dizziness and has a past medical history of DKA, although not recently. Stress and poor diet have affected her glycemic control. Upper respiratory symptoms include coughing and sneezing, which were unsuccessfully managed with [id number] remedies. Physical Exam General: Cooperative, healthy appearing, comfortable, no acute distress and well developed Orientation: Patient oriented x3 Limitations: No limitations Head: Normal to inspection Ears: Hearing grossly normal bilaterally Nose: Normal External nose present Face and sinus: Normal facial exam Eyes: Appearance normal, both eyes and all related structures Neck: Normal visual inspection and Yes full ROM Respiratory: Normal respiratory effort and able to speak in complete sentences. Clear to auscultation bilaterally Cardiovascular: Tachycardic, regular rate and rhythm. Normal S1 and S2 Skin: No rashes or lesions noted Neuro: Patient oriented x3 Extremities: Normal to inspection [facility] Medical History (Updated 08/30/24 @ 15:11 by Savanna Osei PA-C) Type 1 diabetes mellitus Type 1 diabetes mellitus with nephropathy Proteinuria Adult BMI 45.0-49.9 kg/sq m Vitamin D deficiency Type 1 diabetes mellitus with hyperglycemia Surgical History Hx of oral surgery Family History Father No problems noted. Mother No problems noted. 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, [employer] Cognitive needs: No Hearing needs: No Vision needs: No Female Reproductive History Menstrual Age of Menarche: 12 Review of Systems Const All systems reviewed & are unremarkable except as noted in HPI and below Physical Exam Vital Signs: Last Vital Signs Temp 98.7 F 08/30/24 14:57 Pulse 128 H 08/30/24 14:57 BP 110/70 08/30/24 14:57 Pulse Ox 98 08/30/24 14:57 Oxygen Delivery Method Room Air 08/30/24 14:57 Assessment & Plan Assessment & Plan (1) Hyperglycemia: Code(s): R73.9 - Hyperglycemia, unspecified Plan: Tachycardic, likely secondary to dehydration, combined with polyuria, polydipsia, nausea and vomiting, the primary concern is suspected diabetic ketoacidosis. The patient was advised to go to the emergency department for further evaluation and treatment. The patient will be transported by a responsible individual due to her dizziness, potentially linked to dehydration. She declined an ambulance. She is well appearing and able to be driven by her mother. She acknowledges and understands the necessity for immediate care and the possible implications of her condition. Communication with the emergency department staff will be made to ensure quick assessment upon the patient?s arrival. Called [facility] with expect, spoke to Marlene. It's imperative to emphasize the need for consistent diabetes management to prevent recurrence. Patient was informed and verbally consented to the use of an ambient scribe for clinic note documentation during this visit. (2) Vomiting: Code(s): R11.10 - Vomiting, unspecified Qualifiers: Nausea presence: with nausea Vomiting type: unspecified Qualified Code(s): R11.2 - Nausea with vomiting, unspecified Plan: as above Coding Level of Care Code Est Pt Level 5 (57955) Diagnoses Hyperglycemia R73.9 Nausea and vomiting, unspecified vomiting type R11.2 Nausea presence: with nausea Vomiting type: unspecified
== END 2024-08-30 15:49 | disposition home or self-care (01) ==
PROVIDERS: PCP Internal Medicine; Visit Provider Physician Assistant
DX: R73.9 Hyperglycemia, unspecified (principal); R11.2 Nausea with vomiting, unspecified

== ENCOUNTER → 2024-08-30 14:55 | Outpatient (BNVA) | payer OTHER, SELFPAY | PROVIDERS: PCP Internal Medicine; Visit Provider Physician Assistant | DX: R73.9 Hyperglycemia, unspecified (principal); R11.2 Nausea with vomiting, unspecified | CPT/HCPCS: 99212 ==

== ENCOUNTER 2024-08-30 16:20 | Emergency (ER) | payer OTHER, SELFPAY ==
[2024-08-30 16:24] VITALS: BP 114/82; PULSE 113; RESP 18; TEMP 36.6; O2SAT 97; BMI 25.6
--- NOTE | 2024-08-30 16:24 | ED_ITS ---
HPI - General Adult General Chief complaint: Nausea/Vomiting/Diarrhea Stated complaint: Possible DKA sent by Dr. Adams Seen by Provider: 08/30/24 21:35 Source: patient Mode of arrival: ambulatory Limitations: no limitations History of Present Illness ED Provider: HPI narrative: Patient is type 1 diabetic on insulin fairly compliant take Tresiba 42 units in the evening and Humalog according sliding scale no change in diet drinking enough fluids peripheral blood sugar less than 200 today patient's blood sugar was more than 400 no fever no chills no signs of an infection not on any prednisone no abdominal pain no nausea no vomiting patient has vomited once earlier labs were done at 16:30 showed anion gap of 18 POC of 431 beta hydroxybutyrate 4.02 pH was 7.32 Related Data Home Medications ?Medication ?Instructions ?Recorded ?Confirmed lisinopril 5 mg tablet 5 mg PO DAILY 06/25/20 09/07/23 Previous Rx's ?Medication ?Instructions ?Recorded pantoprazole 20 mg tablet,delayed 20 mg PO DAILY 90 days #90 tabs 04/06/23 release clotrimazole-betamethasone 1 1 appl topical BID itching 7 days 11/17/23 %-0.05 % topical cream #45 grams blood sugar diagnostic (FreeStyle #120 ea 02/22/24 Lite Strips) insulin lispro 100 unit/mL 11 - 25 unit (0.11 - 0.25 mL) 02/22/24 subcutaneous pen subcut QID #15 mL lancets 28 gauge (FreeStyle #200 ea 02/22/24 Lancets) blood-glucose meter (FreeStyle #1 ea 02/23/24 Lite Meter kit) pen needle, diabetic 32 gauge x #175 ea 02/28/2432 (Unifine Pentips Plus) cholecalciferol (vitamin D3) 125 125 mcg PO DAILY #30 caps 05/14/24 mcg (5,000 unit) capsule acetone (urine) test (Ketostix #25 ea 07/10/24 strips) glucagon 3 mg/actuation nasal 3 mg intranasal ONCE severe 07/10/24 spray (Baqsimi) hypoglycemia 30 days #2 ea insulin degludec 200 unit/mL (3 42 unit (0.21 mL) subcut DAILY 30 07/10/24 mL) subcutaneous pen (Tresiba days #6.3 mL FlexTouch U-200 insulin) norethindrone (contraceptive) 0.35 0.35 mg PO DAILY 90 days #90 tabs 08/14/24 mg tablet (Catrina) Allergies Allergy/AdvReac Type Severity Reaction Status Date / Time Sulfa (Sulfonamide Allergy Intermediate HIVES, bad Verified 08/30/24 16:25 Antibiotics) rash [SULFA (SULFONAMIDE ANTIBIOTICS)] naproxen AdvReac Severe Unknown Verified 08/30/24 16:25 Review of Systems 2 Review of Systems: Yes all other systems are reviewed and are negative [facility] Past Medical History Medical History Type 1 diabetes mellitus Type 1 diabetes mellitus with nephropathy Proteinuria Adult BMI 45.0-49.9 kg/sq m Vitamin D deficiency Type 1 diabetes mellitus with hyperglycemia Surgical History Hx of oral surgery Family History Family History Father No problems noted. Mother No problems noted. 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 Oriented X3. No acute distress. Eyes: No pallor or icterus ENT: Pharynx normal. Oral Mucosa moist Neck: Normal inspection. Neck supple. CVS: Normal heart rate and rhythm. Pulses normal. Respiratory: No respiratory distress. Equal air entry bilateral, no wheezing/rales/rhonchi Abdomen: Soft and nontender. Bowel sounds are present, no mass palpable, no CVA tenderness Skin: Skin warm and dry. Normal skin color. Normal skin turgor. Extremities: No lower extremity edema. No calf tenderness Neuro: Oriented X 3. No motor deficit. Course Course Course Narrative: This is a rapid medical exam performed by Marty Head NP: Additional HPI, ROS, PE not included below will be deferred to primary provider. Patient is a 29-year-old female with history of DM presenting to the ED with complaint of nausea and vomiting presenting from PCP office where she states her glucose was 404. Last few days has had coughing, sneezing, was unable to lower her sugar today. Plan: EKG, labs, UA Medications Administered Discontinued Medications Generic Name Dose Route Start Last Admin Trade Name Freq PRN Reason Stop Dose Admin Sodium Chloride 1,000 mls @ 999 mls/hr 08/30/24 22:32 08/31/24 00:50 Ns IV 08/30/24 23:32 Infused .Q1H1M ONE Infusion Insulin Human Regular 6 unit 08/30/24 22:32 08/30/24 22:46 Insulin Regular, Human 100 Unit/Ml 10 Ml Vial IVPUSH 08/30/24 22:33 6 unit ONCE ONE Administration Medical Decision Making Medical Decision Making [facility] Narrative: Patient is type 1 diabetes with hyperglycemia with elevated hydroxybutyrate but no acidosis/anion gap POC improved after IV fluids and extra insulin blood sugar now is 199 patient is feeling much better will discharge patient home advised to drink plenty of fluids Differential Diagnosis Differential Diagnoses: The differential diagnosis associated with the presentation includes DKA/hyperglycemia Lab Data [facility] Lab Attestation statement: I reviewed the patient's lab results. 08/30/24 16:36 08/30/24 16:36 Labs: Lab Results 08/30/24 08/30/24 08/30/24 Range/Units 16:31 16:36 16:43 WBC 9.0 (4.8-10.8) X10*3/uL RBC 4.58 (4.20-5.50) X10*6/uL Hgb 14.5 (12.0-16.0) g/dl Hct 40.0 (37.0-47.0) % MCV 87.3 (80.0-98.0) fL MCH 31.7 (27.0-33.0) pg MCHC 36.3 H (31.0-35.0) g/dl RDW 12.0 (11.0-16.0) % Plt Count 350 (160-400) X10*3/uL MPV 10.0 (9.4-12.3) fL Immature Gran % (Auto) 0.3 (0.0-0.4) % Neut % (Auto) 66.0 (45-73) % Lymph % (Auto) 22.3 (20-40) % [place] % (Auto) 9.8 (2-11) % Eos % (Auto) 0.8 (0-4) % Baso % (Auto) 0.8 (0-2) % Lymph # (Auto) 2.0 (1.2-4.9) X10*3/uL [place] # (Auto) 0.9 (0.1-1.2) X10*3/uL Eos # (Auto) 0.1 (0.0-0.4) X10*3/uL Baso # (Auto) 0.1 (0.0-0.2) X10*3/uL Abs Immat Gran (auto) 0.03 (0.00-0.03) X10*3/uL Absolute Neuts (auto) 5.9 (2.0-8.3) x10*3/uL Absolute Nucleated RBC 0.000 (0.0-0.012) X10*3/uL Nucleated RBC % (auto) 0.0 (0.0-0.2) /100WBC VBG pH 7.32 (7.32-7.43) VBG pCO2 42 mmHg VBG pO2 43 mmHg VBG HCO3 22 (22-26) mmol/L VBG O2 Saturation 68.0 % VBG Base Excess -4.0 mmol/L Sodium 135 (135-145) mmol/L Potassium 5.0 (3.3-5.1) mmol/L Chloride 101 (96-108) mmol/L Carbon Dioxide 21 L (22-29) mmol/L Anion Gap 18 (12-20) BUN 13 (9-16) mg/dL Creatinine 0.85 (0.5-1.4) mg/dL Estim Creat Clear Calc 83.9 Estimated GFR > 60 POC Glucose (60-115) mg/dL Random Glucose 431 H* (60-115) mg/dL Calcium 10.3 H D (8.4-10.2) mg/dL Magnesium 1.7 (1.6-2.6) mg/dL Total Bilirubin 0.5 (0.0-1.0) mg/dL AST 17 (5-31) U/L ALT 23 (0-31) U/L Alkaline Phosphatase 117 (39-117) U/L Total Protein 7.3 (6.5-8.0) g/dL Albumin 3.9 (3.5-5.0) g/dL Lipase 8 (8-78) U/L Beta-Hydroxybutyrate 4.02 H (0.02-0.27) mmol/L Urine Color Urine Appearance Urine pH (5.0-9.0) Ur Specific [place] (1.005-1.025) Urine Protein (Neg-Trace) mg/dL Urine Glucose (UA) (Negative) mg/dL Urine Ketones (Negative) mg/dL Urine Blood (Negative) Urine Nitrite (Negative) Ur Leukocyte Esterase (Negative) Urine RBC (0-2) /HPF Urine WBC (0-5) /HPF Ur Squamous Epith Cells (0-2) /HPF Urine Bacteria (None Seen) Hyaline Casts (0-2) /LPF Influenza Type A (PCR) NEGATIVE (Negative) Influenza Type B (PCR) NEGATIVE (Negative) RSV RNA Qual (PCR) NEGATIVE (Negative) SARS-CoV-2 RNA (RT-PCR) NEGATIVE (Negative) 08/30/24 08/30/24 08/30/24 Range/Units 21:19 22:07 22:49 WBC (4.8-10.8) X10*3/uL RBC (4.20-5.50) X10*6/uL Hgb (12.0-16.0) g/dl Hct (37.0-47.0) % MCV (80.0-98.0) fL MCH (27.0-33.0) pg MCHC (31.0-35.0) g/dl RDW (11.0-16.0) % Plt Count (160-400) X10*3/uL MPV (9.4-12.3) fL Immature Gran % (Auto) (0.0-0.4) % Neut % (Auto) (45-73) % Lymph % (Auto) (20-40) % [place] % (Auto) (2-11) % Eos % (Auto) (0-4) % Baso % (Auto) (0-2) % Lymph # (Auto) (1.2-4.9) X10*3/uL [place] # (Auto) (0.1-1.2) X10*3/uL Eos # (Auto) (0.0-0.4) X10*3/uL Baso # (Auto) (0.0-0.2) X10*3/uL Abs Immat Gran (auto) (0.00-0.03) X10*3/uL Absolute Neuts (auto) (2.0-8.3) x10*3/uL Absolute Nucleated RBC (0.0-0.012) X10*3/uL Nucleated RBC % (auto) (0.0-0.2) /100WBC VBG pH 7.33 (7.32-7.43) VBG pCO2 43 mmHg VBG pO2 27 mmHg VBG HCO3 23 (22-26) mmol/L VBG O2 Saturation 37.0 % VBG Base Excess -2.5 mmol/L Sodium (135-145) mmol/L Potassium (3.3-5.1) mmol/L Chloride (96-108) mmol/L Carbon Dioxide (22-29) mmol/L Anion Gap (12-20) BUN (9-16) mg/dL Creatinine (0.5-1.4) mg/dL Estim Creat Clear Calc Estimated GFR POC Glucose 336 H (60-115) mg/dL Random Glucose (60-115) mg/dL Calcium (8.4-10.2) mg/dL Magnesium (1.6-2.6) mg/dL Total Bilirubin (0.0-1.0) mg/dL AST (5-31) U/L ALT (0-31) U/L Alkaline Phosphatase (39-117) U/L Total Protein (6.5-8.0) g/dL Albumin (3.5-5.0) g/dL Lipase (8-78) U/L Beta-Hydroxybutyrate (0.02-0.27) mmol/L Urine Color Yellow Urine Appearance Cloudy Urine pH 5.5 (5.0-9.0) Ur Specific [place] >= 1.030 H (1.005-1.025) Urine Protein 30 (1+) H (Neg-Trace) mg/dL Urine Glucose (UA) >=1000 H (Negative) mg/dL Urine Ketones >=160 (Negative) mg/dL Urine Blood Large (3+) H (Negative) Urine Nitrite Negative (Negative) Ur Leukocyte Esterase Negative (Negative) Urine RBC >20 H (0-2) /HPF Urine WBC 6-10 H (0-5) /HPF Ur Squamous Epith Cells 6-10 (0-2) /HPF Urine Bacteria Trace (None Seen) Hyaline Casts 3-5 (0-2) /LPF Influenza Type A (PCR) (Negative) Influenza Type B (PCR) (Negative) RSV RNA Qual (PCR) (Negative) SARS-CoV-2 RNA (RT-PCR) (Negative) Discharge Plan Discharge Clinical Impression: Type 1 diabetes mellitus with hyperglycemia Patient Disposition: Home, Self-Care Additional Instructions: Continue take your insulin Drink plenty of fluids Follow with your PCP i Report to the ER blood sugar stays high Prescriptions: No Action (DME) blood-glucose meter [FreeStyle Lite Meter] Kit See Rx Instructions .ROUTE .MEDSUPPLY Qty: 1 0RF Rx Instructions: As directed 4x/day (DME) pen needle, diabetic [Unifine Pentips Plus] 32 gauge x 5/32 needle See Rx Instructions .ROUTE .COMPLEX Qty: 175 11RF Dose Instruction: USE DIRECTED 5 TO 6 TIMES PER DAY Rx Instructions: USE DIRECTED 5 TO 6 TIMES PER DAY cholecalciferol (vitamin D3) 125 mcg (5,000 unit) capsule 125 mcg PO DAILY Qty: 30 11RF norethindrone (contraceptive) [Catrina] 0.35 mg tablet 0.35 mg PO DAILY 90 Days Qty: 90 1RF pantoprazole 20 mg tablet,delayed release (DR/EC) 20 mg PO DAILY 90 Days Qty: 90 0RF lisinopril 5 mg tablet 5 mg PO DAILY (DME) FreeStyle Lite Strips Strip See Rx Instructions .ROUTE .COMPLEX Qty: 120 11RF Dose Instruction: USE FOUR TIMES A DAY DIRECTED Rx Instructions: USE FOUR TIMES A DAY DIRECTED (DME) lancets [FreeStyle Lancets] 28 gauge misc See Rx Instructions .ROUTE .MEDSUPPLY Qty: 200 11RF Rx Instructions: six times daily insulin lispro 100 unit/mL insulin pen 11 - 25 unit subcut QID Qty: 15 4RF Baqsimi 3 mg/actuation spray,non-aerosol 3 mg intranasal ONCE 30 Days Qty: 2 6RF Rx Instructions: [place] once for severe hypoglycemia when patient cannot self-treat with glucose. Afterwards turn on side. May repeat after 15 minutes if patient does not respond. insulin degludec [Tresiba FlexTouch U-200] 200 unit/mL (3 mL) insulin pen 42 unit subcut DAILY 30 Days Qty: 6.3 6RF (DME) Ketostix Strip See Rx Instructions .ROUTE .MEDSUPPLY Qty: 25 11RF Rx Instructions: bid prn nausea, vomiting, illness glucose over 300 clotrimazole-betamethasone 1-0.05 % cream 1 appl topical BID 7 Days Qty: 45 0RF Rx Instructions: apply externally a thin coat to the area Print Language: Malaysian
--- NOTE | 2024-08-30 16:27 | ECG_ITS ---
Test Reason : VOMITING Blood Pressure : */* mmHG Vent. Rate : 112 BPM Atrial Rate : 112 BPM P-R Int : 148 ms QRS Dur : 56 ms QT Int : 282 ms P-R-T Axes : 55 64 29 degrees QTcB Int : 384 ms Sinus tachycardia Otherwise normal ECG When compared with ECG of 07-Oct-2021 17:21, No significant change was found Referred By: Gabrielle Head Electronically Signed By: REFUGIO REY MD
[2024-08-30 16:42] LABS: MANUAL DIFF FLAG NO
[2024-08-30 16:44] LABS: Basophils Absolute Auto 0.1 X10*3/uL (0.0-0.2); Basophils Percent Auto 0.8 % (0-2); Eosinophils Absolute Auto 0.1 X10*3/uL (0.0-0.4); Eosinophils Percent Auto 0.8 % (0-4); Hemoglobin 14.5 g/dl (12.0-16.0); Imm Gran Abs Auto 0.03 X10*3/uL (0.00-0.03); Imm Gran Pct Auto 0.3 % (0.0-0.4); Lymphocytes Percent Auto 22.3 % (20-40); Mean Corpuscular HGB Conc 36.3 g/dl (31.0-35.0); Mean Corpuscular Hemoglobin 31.7 pg (27.0-33.0); Mean Corpuscular Volume 87.3 fL (80.0-98.0); Monocytes Absolute Auto 0.9 X10*3/uL (0.1-1.2); Monocytes Percent Auto 9.8 % (2-11); Neutrophils Absolute Auto 5.9 x10*3/uL (2.0-8.3); Platelet Count 350 X10*3/uL (160-400); Red Blood Count 4.58 X10*6/uL (4.20-5.50)
[2024-08-30 16:46] LABS: Venous Blood Gas Refer to POC result
[2024-08-30 16:54] LABS: VBG HCO3 22 mmol/L (22-26); VBG pCO2 42 mmHg; VBG pH 7.32 (7.32-7.43); VBG pO2 43 mmHg
[2024-08-30 17:19] LABS: Influenza A PCR NEGATIVE (Negative); Influenza B PCR NEGATIVE (Negative); Resp Syncy Virus RNA Qual PCR NEGATIVE (Negative); SARS COV2 PCR INHOUSE NEGATIVE (Negative)
[2024-08-30 17:33] LABS: Alanine Aminotransferase 23 U/L (0-31); Albumin Level 3.9 g/dL (3.5-5.0); Alkaline Phosphatase 117 U/L (39-117); Anion Gap 18 (12-20); Aspartate Amino Transferase 17 U/L (5-31); Beta-Hydroxybutyrate 4.02 mmol/L (0.02-0.27); Bilirubin Total 0.5 mg/dL (0.0-1.0); Blood Urea Nitrogen 13 mg/dL (9-16); Calcium 10.3 mg/dL (8.4-10.2); Carbon Dioxide 21 mmol/L (22-29); Chloride 101 mmol/L (96-108); Creatinine Clr Calc Pharmacy 83.9; Estimated Glomerular Filt Rate > 60; Glucose Random 431 mg/dL (60-115); Magnesium 1.7 mg/dL (1.6-2.6); Sodium 135 mmol/L (135-145); Total Protein 7.3 g/dL (6.5-8.0)
[2024-08-30 21:05] VITALS: BP 118/83; PULSE 109; RESP 18; O2SAT 97
[2024-08-30 21:57] LABS: Glucose, Whole Blood 336 mg/dL (60-115)
[2024-08-30 22:18] LABS: Appearance Urine Cloudy; Color Urine Yellow; Glucose Urine UA >=1000 mg/dL (Negative); Leukocyte Esterase Urine Negative (Negative); Nitrite Urine Negative (Negative); PH 5.5 (5.0-9.0); Specific Gravity - Urine >= 1.030 (1.005-1.025); UMIC TRIGGER UACC YES; Urine Blood Large (3+) (Negative); Urine Ketones >=160 mg/dL (Negative); Urine Protein 30 (1+) mg/dL (Neg-Trace)
[2024-08-30 22:33] VITALS: BP 121/77; PULSE 105; RESP 16; TEMP 37.1; O2SAT 99
[2024-08-30 22:38] LABS: Bacteria Urine Trace (None Seen); RBC Urine >20 /HPF (0-2); UACC Culture Trigger YES
[2024-08-30] MEDS: Insulin Regular, Human 100 UNIT/ML 10 ML VIAL 6 UNIT IVPUSH (22:46)
[2024-08-30] MEDS: 0.9 % Sodium Chloride 1,000 ML 999 ML IV (22:47)
[2024-08-30 22:49] LABS: Lipase 8 U/L (8-78)
[2024-08-30 22:51] LABS: Venous Blood Gas Refer to POC result
[2024-08-30 23:03] LABS: VBG Base Excess -2.5 mmol/L; VBG HCO3 23 mmol/L (22-26); VBG pCO2 43 mmHg; VBG pH 7.33 (7.32-7.43); VBG pO2 27 mmHg
[2024-08-31 01:15] LABS: Glucose, Whole Blood 195 mg/dL (60-115)
[2024-08-31 01:20] VITALS: BP 121/77; PULSE 105; RESP 16; TEMP 37.1; O2SAT 99
== END 2024-08-31 01:21 | disposition home or self-care (01) ==
PROVIDERS: Registered Nurse Emergency; Emergency Provider Internal Medicine; PCP Internal Medicine
DX: E10.65 Type 1 diabetes mellitus with hyperglycemia (principal); R05.9 Cough, unspecified; Z03.818 Encounter for observation for suspected exposure to other biological agents ruled out; Z79.4 Long term (current) use of insulin
CPT/HCPCS: 0241U; 36415; 80053; 81001; 82010; 82803; 82947; 83690; 83735; 85025; 87086; 93005; 96361; 96374; 99284; 99285

== ENCOUNTER → 2024-08-30 16:27 | Outpatient (BNV) | payer OTHER, SELFPAY | PROVIDERS: Emergency Provider Internal Medicine; PCP Internal Medicine; Visit Provider Internal Medicine Cardiovascular Disease | DX: R00.0 Tachycardia, unspecified (principal) | CPT/HCPCS: 93010 ==

== ENCOUNTER 2024-10-05 14:35 | Outpatient (AMB) | payer OTHER, SELFPAY ==
[2024-10-05 14:40] VITALS: BP 118/70; PULSE 110; O2SAT 98; BMI 35.3
--- NOTE | 2024-10-05 14:40 | A.OFFPC_ITS ---
Vital Signs 10/05/24 14:40 Height 5 ft 2 in Weight 193 lb BMI 35.3 BP 118/70 Blood Pressure Location Rt brachial Position Sitting Pulse 110 H Pulse Source Pulse Oximeter Pulse Oximetry (%) 98 Oxygen Delivery Method Room Air Intake Visit Reasons: Annual Physical Allergies Sulfa (Sulfonamide Antibiotics) [SULFA (SULFONAMIDE ANTIBIOTICS)] Allergy (Intermediate, Verified 10/05/24 14:41) HIVES, bad rash naproxen Adverse Reaction (Severe, Verified 10/05/24 14:41) Unknown Medication List - Last Reconciled 10/05/24 by Robert Taylor MD acetone (urine) test (Ketostix strips) bid prn nausea, vomiting, illness glucose over 300 blood sugar diagnostic (FreeStyle Lite Strips) USE FOUR TIMES A DAY DIRECTED blood-glucose meter (FreeStyle Lite Meter kit) As directed 4x/day cholecalciferol (vitamin D3) 125 mcg PO DAILY glucagon 3 mg/actuation (Baqsimi) 3 mg intranasal ONCE 30 days insulin degludec (Tresiba FlexTouch U-200 insulin) 42 units (0.21 mL) subcut DAILY 30 days insulin lispro 11 - 25 units (0.11 - 0.25 mL) subcut QID lancets (FreeStyle Lancets) six times daily lisinopril 5 mg PO DAILY norethindrone (contraceptive) (Catrina) 0.35 mg PO DAILY 90 days pantoprazole 20 mg PO DAILY 90 days pen needle, diabetic (Unifine Pentips Plus) USE DIRECTED 5 TO 6 TIMES PER DAY Tobacco use date assessed: 10/05/24 Dental Screening Dental Screen Date: 10/05/24 Did you have a dental visit in the last 12 months?: Yes Did you have a dental problem in the last 6 months where you did not have access to dental care?: No Was dental information given to patient?: Patient has dentist HPI Annual Physical HPI Details History of Present Illness - The patient is a 29-year-old female pr esenting for an annual wellness examination. - Type 1 Diabetes Mellitus managed with an wound/ostomy clinical nurse specialist and routine A1c testing. - History of elevated blood sugar episod e leading to hospital admission for insulin drip therapy, thought to be potentially provoked by an undiagnosed i nfection. August of this year - Essential Hypertension managed with Li sinopril 5 mg for renal protection due to diabetic nephropathy. Through Nephrology - Brief history of gastroesophageal refl ux symptoms, formerly managed with Pantoprazole which is currently not necessary. - Routine laboratory monitoring is ackno wledged, with specifics of past testing. No medication from PCP office Health Maintenance - Laboratory tests for routine monitorin g and disease management to be carried out fasting. - Discussion of routine annual checkups for health system continuity. - appointment coming up with OBGYN Patient Instructions - Plan to conduct fasting laboratory saadia ts before the next endocrinology visit. - Review results on patient portal or [facility] wound/ostomy clinical nurse specialist consultation. - Continue annual checkups for overall h [facility] maintenance. Review of Systems - General: No fever no chills - Neurological: No headaches no dizzin ess - Ear nose throat: No sore throat no hearing difficulty no ear pain - Cardiovascular: No syncope, no chest pain, no palpitations - Gastrointestinal: No nausea vomiting or diarrhea - Endocrine: No polyuria polydipsia no heat intolerance - Genitourinary: No dysuria - Skin: No new complaints Physical Exam General: Cooperative, healthy appearing, comfortable, no acute distress Orientation: Patient oriented x3 Head: Normal to inspection Ears: Within normal limit visually Nose: Normal external nose present Face and sinus: Normal facial exam Eyes: Appearance normal, extraocular movement intact pupils reactive Neck: Normal visual inspection and supple Respiratory: Normal respiratory effort and able to speak in complete sentences. Clear to auscultation, no stridor Cardiovascular: S1 and S2 RRR GI: Normal to inspection. Soft to palpation and nontender. No constipation, no diarrhea Skin: Turgor normal, no acute findings. Neuro: Patient oriented x3, motor sensory intact, balance intact, tandem pass Extremities: Normal to inspection. Joints with full range of motion [facility] Medical History Type 1 diabetes mellitus Type 1 diabetes mellitus with nephropathy Proteinuria Adult BMI 45.0-49.9 kg/sq m Vitamin D deficiency Type 1 diabetes mellitus with hyperglycemia Surgical History Hx of oral surgery Family History Father No problems noted. Mother No problems noted. 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 1. Little interest or pleasure in doing things: several days 2. Feeling down, depressed, or hopeless: several days 3. Trouble falling or staying asleep, or sleeping too much: several days 4. Feeling tired or having little energy: several days 5. Poor appetite or overeating: several days 6. Feeling bad about yourself - or that you are a failure or have let yourself or your family down: not at all 7. Trouble concentrating on things, such as reading the newspaper or watching television: not at all 8. Moving or speaking so slowly that other people could have noticed. Or the opposite - being so fidgety or restless that you have been moving around a lot more than usual: not at all 9. Thoughts that you would be better off or of hurting yourself in some way: not at all Total score: 5 Depression Screening Interpretation: Negative Depression Screening Done: Yes 47096 - PHQ-9 Billing: Yes Source: Developed by Drs. Cheikh Adams, Rupal Rush, Kevin Casanova and colleagues, with an educational zach from [employer]. Thrive Questionnaire Date Thrive assessed: 10/05/24 I am a: Patient What is your living situation today?: I have a steady place to live Within the past 12 months, did the food you bought not last and you didn't have the money to get more?: Never true Within the past 12 months, did you worry whether your food would run out before you got money to buy more?: Never true Do you have trouble paying for medicines?: No Do you have trouble getting transportation to medical appointments?: No Do you have trouble paying your heating and electricity bill?: No Do you have trouble taking care of your child, family member or friend?: No Do you have trouble with day-to-day activities such as bathing, preparing meals, shopping, managing finances, etc.?: No Are you currently unemployed and looking for a job?: No Are you interested in more education?: No Please select the resources that you would like help with: None Currently or been in a relationship where the following occur: No concerns reported THRIVE Score: 0 AUDIT C Alcohol Use Questionnaire (AUDIT-C) 1. How often do you have a drink containing alcohol?: Monthly or less 2. How many drinks containing alcohol do you have on a typical day when you are drinking?: 1 or 2 3. How often do you have six or more drinks on one occasion?: Never Total Score: 1 Score Reviewed/Action Taken: Yes FANTASMA-7 AMB Questionnaire FANTASMA-7 Date FANTASMA - 7 assessed: 10/05/24 Feeling nervous, anxious, or on edge: 0 = Not at all Not being able to stop or control worryin = Not at all Worrying too much about different things: 0 = Not at all Trouble relaxin = Not at all Being so restless that it is hard to sit still: 0 = Not at all Becoming easily annoyed or irritable: 0 = Not at all Feeling afraid as if something awful might happen: 0 = Not at all Total FANTASMA-7 score (0-4 normal; 5-9 mild; 10-14 moderate; 15-21 severe): 0 Source: Developed by Drs. Cheikh Adams, Rupal Rush, Kevin Casanova and colleagues, with an educational zach from [employer]. FANTASMA-7 Assessment Billing FANTASMA-7 Assessment Tool: FANTASMA-7 Assessment 32569 Physical exam (Primary Care) Vital Signs: Last Vital Signs Pulse 110 H 10/05/24 14:40 BP 118/70 10/05/24 14:40 Pulse Ox 98 10/05/24 14:40 Oxygen Delivery Method Room Air 10/05/24 14:40 BMI result Body Mass Index 35.3 Tobacco/Smoking Status: Tobacco use Status Tobacco use date assessed 10/05/24 10/05/24 14:44 Patient Tobacco Use Status Never used Tobacco 10/05/24 14:44 e-Cigarette/Vaping Use Never Used 10/05/24 14:44 PHQ-9: PHQ-9 Score PHQ-9: Total score 5 10/05/24 14:44 Depression Screening Interpretation: Negative Thrive Assessment: Date of Thrive Assessment Date Thrive assessed 10/05/24 10/05/24 14:44 Currently or been in a relationship where the following occur: No concerns reported Coding Level of Care Code Est Pt Level 3 (54729) Est Pt Prev Care 18-39y(09237) Diagnoses Encounter for general adult medical examination with abnormal findings Z00.01 Class 1 obesity due to excess calories with serious comorbidity and body mass index (BMI) of 32.0 to 32.9 in adult E66.09; Z68.32 Obesity classification: adult class 1 (BMI 30 - 34.9) Serious obesity comorbidity presence: with serious comorbidity Body mass index: BMI 32.0-32.9 [facility]CI (current) use of insulin Z79.4 Type 1 diabetes mellitus with nephropathy E10.21 Additional Codes FANTASMA-7 Assessment Billing - FANTASMA-7 Assessment Tool: FANTASMA-7 Assessment 45242 ([id number]) PHQ-9 - 43388 - PHQ-9 Billing: Yes ([id number]) Assessment & Plan Assessment & Plan (1) Encounter for general adult medical examination with abnormal findings: Code(s): Z00.01 - Encounter for general adult medical examination with abnormal findings Category: Medical (2) Obesity due to excess calories: Code(s): E66.09 - Other obesity due to excess calories Category: Medical Qualifiers: Obesity classification: adult class 1 (BMI 30 - 34.9) Serious obesity comorbidity presence: with serious comorbidity Body mass index: BMI 32.0-32.9 Qualified Code(s): E66.09 - Other obesity due to excess calories; Z68.32 - Body mass index [BMI] 32.0-32.9, adult (3) [facility]CI (current) use of insulin: Code(s): Z79.4 - [facility]CI (current) use of insulin Category: Medical (4) Type 1 diabetes mellitus with nephropathy: Code(s): E10.21 - Type 1 diabetes mellitus with diabetic nephropathy Category: Medical Plan History of Present Illness - The patient is a 29-year-old female presenting for an annual wellness examination. - Type 1 Diabetes Mellitus managed with an wound/ostomy clinical nurse specialist and routine A1c testing. - History of elevated blood sugar episode leading to hospital admission for insulin drip therapy, thought to be potentially provoked by an undiagnosed infection. August of this year - Essential Hypertension managed with Lisinopril 5 mg for renal protection due to diabetic nephropathy. Through Nephrology - Brief history of gastroesophageal reflux symptoms, formerly managed with Pantoprazole which is currently not necessary. - Routine laboratory monitoring is acknowledged, with specifics of past testing. No medication from PCP office Health Maintenance - Laboratory tests for routine monitoring and disease management to be carried out fasting. - Discussion of routine annual checkups for health system continuity. - appointment coming up with OBGYN - BMI elevated at 35.3 need to lose weight Patient Instructions - Plan to conduct fasting laboratory tests before the next endocrinology visit. - Review results on patient portal or during wound/ostomy clinical nurse specialist consultation. - Continue annual checkups for overall health maintenance.
--- OUTSIDE RECORDS SUMMARY | 2024-10-05 14:42 | XMS_ITS | Clinical Summary ---
Author Organization [facility] Facility Address [address] [place] [address] Care Team Providers Care Tax Preparer Name Role Phone Robert Taylor MD Primary Care Provider [phone] Allergies Active Allergy Reactions Criticality Noted Date [...] Visit [facility] [address] [phone] Graciela sTai ARNP [address] [phone] Health Maintenance Due Date Last Done Comments Diabetes: Hemoglobin A1C 07/06/2020 Diabetes: Ophthalmology Exam 07/06/2020 12/14/2006 Diabetes: Pedal Pulse Checked 07/06/2020 Diabetes: Sensory Foot Exam 07/06/2020 Diabetes: Visual Foot Exam 07/06/2020 Influenza Vaccine (Season Ended) 2025 Hepatitis B Vaccine Completed 1993, 1993, 1993 Pneumococcal Vaccine: Peds ( 0 to 5 Years) and At-Risk Patients (6 to 49 Years) Aged Out No longer eligi ble based on patient's age to complete this topic Insurance Care Teams Tax Preparer Relationship Specialty Start Date End Date Robert Taylor MD [address] [place] [id number] PCP - General 06/16/20
== END 2024-10-05 14:58 | disposition home or self-care (01) ==
LOC: HO.HMCC 14:35
PROVIDERS: PCP Internal Medicine; Visit Provider Internal Medicine
DX: Z00.00 Encounter for general adult medical examination without abnormal findings (principal); E66.09 Other obesity due to excess calories; Z68.32 Body mass index [BMI] 32.0-32.9, adult; Z79.4 Long term (current) use of insulin; E10.21 Type 1 diabetes mellitus with diabetic nephropathy

== ENCOUNTER → 2024-10-05 14:35 | Outpatient (BNVA) | payer OTHER, SELFPAY | PROVIDERS: PCP Internal Medicine; Visit Provider Internal Medicine | DX: Z00.01 Encounter for general adult medical examination with abnormal findings (principal); E10.21 Type 1 diabetes mellitus with diabetic nephropathy; I10 Essential (primary) hypertension; E66.09 Other obesity due to excess calories; Z68.32 Body mass index [BMI] 32.0-32.9, adult; Z79.4 Long term (current) use of insulin | CPT/HCPCS: 96127; 99395 ==

== ENCOUNTER 2024-11-13 15:22 | Outpatient (REF) | payer OTHER, SELFPAY ==
--- NOTE | ~2024-11-13 | XR_ITS ---
EXAMINATION: XR SHOULDER, LEFT CLINICAL INFORMATION: M25.512 - Pain in left shoulder COMPARISON: None available. TECHNIQUE: AP external rotation, Grashey, scapular Y, and axillary views of the left shoulder. FINDINGS: The bones and soft tissues are normal. No fracture. Glenohumeral and acromioclavicular alignment is anatomic with normal joint space. Minimal amorphous calcification posterior to the surgical neck of humerus. XR/XR shoulder LT min 2V IMPRESSION: Amorphous calcification posterior to the surgical neck of humerus could represent calcific tendonitis. Electronically signed by: Ruben Oakley MD 11/13/2024 04:27 PM EDT
== END 2024-11-13 15:23 | disposition home or self-care (01) ==
LOC: HO.HMGCX 15:22
PROVIDERS: PCP Internal Medicine; Visit Provider Physician Assistant Medical
DX: M25.512 Pain in left shoulder (principal)
CPT/HCPCS: 73030; 99212

== ENCOUNTER 2024-11-13 15:22 | Outpatient (AMB) | payer OTHER, SELFPAY ==
[2024-11-13 15:30] VITALS: BP 110/68; PULSE 87; O2SAT 100
--- NOTE | 2024-11-13 15:30 | AM.OFFWIN_ITS ---
Intake Vital Signs 11/13/24 15:30 Weight 190 lb BP 110/68 Blood Pressure Location Rt brachial Position Sitting Pulse 87 Pulse Source Pulse Oximeter Pulse Oximetry (%) 100 Oxygen Delivery Method Room Air Intake Visit Reasons: EP-lt shoulder pain Intake Note: Patient here for left shoulder pain, limited ROM which has been present for almost 2 weeks. Patient Tobacco Use Status: Never used Tobacco Allergies Sulfa (Sulfonamide Antibiotics) [SULFA (SULFONAMIDE ANTIBIOTICS)] Allergy (Intermediate, Verified 11/13/24 15:31) HIVES, bad rash naproxen Adverse Reaction (Severe, Verified 11/13/24 15:31) Unknown Do you need a note to return to daycare/school/sports/work: Yes HPI HPI Comments History of Present Illness Details History of Present Illness - The patient is a 29-year-old female pr esenting with left shoulder stiffness that began approximately one week ago. - She experiences inability to elevate h er shoulder beyond a certain point without compensating with other muscles. - Noted similar past occurrence on the r ight shoulder, which was diagnosed as adhesive capsulitis and successfully managed with imaging and physical therapy. - Denies associated pain in surrounding joints or regions. - Previous therapeutic regime included h eat therapy. Current method involves alternating heat and ice. - Pain is currently managed with Tylenol due to previous adverse reactions to muscle relaxants. - The patient has not experienced any re cent trauma or falls affecting the shoulder. - She denies trauma or fall. She denies arm pain. She denies numbness or tingling. Physical Exam General: Cooperative, healthy appearing, comfortable, no acute distress and well developed Neck: Normal visual inspection and Yes full ROM. No TTP of the lateral neck or SCM. Respiratory: Normal respiratory effort and able to speak in complete sentences. Clear to auscultation bilaterally Cardiovascular: Regular rate and rhythm. Normal S1 and S2 Skin: No rashes or lesions noted Neuro: Sensation intact. Musculoskeletal: Decrease ROM of the left shoulder. No click noted. TTP of the left AC joint. Supination and pronation is intact. FROM of the left elbow and wrist. Hand pressurizer is intact. Strength is 5/5 on the UE bilaterally. Extremities: Limited range of motion in the left shoulder, pain noted upon movement; good strength otherwise, no pain in wrist or elbow Patient was informed and verbally consented to the use of an ambient scribe for clinic note documentation during this visit. [facility] Medical History Type 1 diabetes mellitus Type 1 diabetes mellitus with nephropathy Proteinuria Adult BMI 45.0-49.9 kg/sq m Vitamin D deficiency Type 1 diabetes mellitus with hyperglycemia Surgical History Hx of oral surgery Family History Father No problems noted. Mother No problems noted. 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, [employer] Cognitive needs: No Hearing needs: No Vision needs: No Female Reproductive History Menstrual Age of Menarche: 12 Review of Systems Const All systems reviewed & are unremarkable except as noted in HPI and below Physical Exam Vital Signs: Last Vital Signs Pulse 87 11/13/24 15:30 BP 110/68 11/13/24 15:30 Pulse Ox 100 11/13/24 15:30 Oxygen Delivery Method Room Air 11/13/24 15:30 Assessment & Plan Assessment & Plan (1) Shoulder pain, left: Code(s): M25.512 - Pain in left shoulder Qualifiers: Chronicity: acute Qualified Code(s): M25.512 - Pain in left shoulder Plan Most likely frozen shoulder vs tendonitis vs arthritis vs bursitis Plan - Obtain x-ray of the left shoulder for evaluation. - Rest, ice and/or heat to the left shoulder. - Wear sling for comfort. - Refer to physical therapy to address and manage left shoulder stiffness. - Schedule consultation with orthopedics for further assessment and oversight of therapy progress. - Maintain acetaminophen for pain management while avoiding muscle relaxants given their provocation of adverse reactions. Orders: Orders XR shoulder LT min 2V Today M25.512 - Pain in left shoulder PT Evaluation and Treatment Today M25.512 - Pain in left shoulder Referrals Orthopedics Referral M25.512 - Pain in left shoulder Coding Level of Care Code Est Pt Level 4 (20499) Diagnoses Acute pain of left shoulder M25.512 Chronicity: acute
--- OUTSIDE RECORDS SUMMARY | 2024-11-13 18:30 | XMS_ITS | Clinical Summary ---
Author Organization [facility] Facility Address [address] [place] [address] Care Team Providers Care Electric Vehicle Electrician Name Role Phone Robert Taylor MD Primary Care Provider [phone] Allergies Active Allergy Reactions Criticality Noted Date [...] time each day 90 tablet 3 4 Active Active Problems Problem Noted Date Diagnosed [...] Care Team (Late st Contact Info) Description 11/19/2024 2:30 PM EDT Office Visit [facility] [address] [phone] Graciela Tsai ARNP [address] [phone] Health Maintenance Due Date Last Done Comments [...] to complete this topic Insurance Care Teams Electric Vehicle Electrician Relationship Specialty Start Date End Date Robert Taylor MD [place] [address] PCP - General 06/16/20
== END 2024-11-13 16:04 | disposition home or self-care (01) ==
PROVIDERS: PCP Internal Medicine; Visit Provider Physician Assistant Medical
DX: M25.512 Pain in left shoulder (principal)

== ENCOUNTER → 2024-11-13 15:51 | Outpatient (BNV) | payer OTHER, SELFPAY | PROVIDERS: PCP Internal Medicine; Visit Provider Radiology Diagnostic Radiology | DX: M61.412 Other calcification of muscle, left shoulder (principal) | CPT/HCPCS: 73030 ==

== ENCOUNTER 2024-12-06 16:57 | Emergency (ER) | payer OTHER, SELFPAY ==
[2024-12-06 17:02] VITALS: BP 119/86; PULSE 101; RESP 16; TEMP 36.3; O2SAT 99; BMI 33.9
--- NOTE | 2024-12-06 17:18 | ED_ITS ---
HPI - Extremity Problem General Chief complaint: Extremity Injury, Upper Stated complaint: left shoulder pain Time Seen by Provider: 12/06/24 17:42 Related Data Home Medications ?Medication ?Instructions ?Recorded ?Confirmed lisinopril 5 mg tablet 5 mg PO DAILY 06/25/2010/05 Previous Rx's ?Medication ?Instructions ?Recorded pantoprazole 20 mg tablet,delayed 20 mg PO DAILY 90 da ys #90 tabs 04/06/23 release blood sugar diagnostic (FreeStyle #120 ea 02/22/24 Lite Strips) insulin lispro 100 unit/mL 11 - 25 unit (0.11 - 0.25 m L) 02/22/24 subcutaneous pen subcut QID #15 mL lancets 28 gauge (FreeStyle #200 ea 02/22/24 Lancets) blood-glucose meter (FreeStyle #1 ea 02/23/24 Lite Meter kit) pen needle, diabetic 32 gauge x #175 ea 02/28/24 (Unifine Pentips Plus) cholecalciferol (vitamin D3) 125 125 mcg PO DAILY #30 caps 05/14/24 mcg (5,000 unit) capsule acetone (urine) test (Ketostix #25 ea 07/10/24 strips) glucagon 3 mg/actuation nasal 3 mg intranasal ONCE sev ere 07/10/24 spray (Baqsimi) hypoglycemia 30 days #2 ea insulin degludec 200 unit/mL (3 42 unit (0.21 mL) subc ut DAILY 30 07/10/24 mL) subcutaneous pen (Tresiba days #6.3 mL FlexTouch U-200 insulin) norethindrone (contraceptive) 0.35 0.35 mg PO DAILY 90 days #90 tabs 08/14/24 mg tablet (Catrina) cyclobenzaprine 10 mg tablet 10 mg PO TID PRN muscle s pasm #14 12/06/24 tabs Allergies Allergy/AdvReac Type Severity Reaction Status Date / Time Sulfa (Sulfonamide Allergy Intermediate HIVES, bad Verified 11/13/24 15:31 Antibiotics) (SULFA rash (SULFONAMIDE ANTIBIOTICS)) naproxen AdvReac Severe Palpitation Verified 12/06/24 17:05 [facility] Past Medical History Medical History Type 1 diabetes mellitus Type 1 diabetes mellitus with nephropathy Proteinuria Adult BMI 45.0-49.9 kg/sq m Vitamin D deficiency Type 1 diabetes mellitus with hyperglycemia Surgical History Hx of oral surgery Family History Family History Father No problems noted. Mother No problems noted. 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 Patient states difficulty putting on clothes and lifting arm due to pain. Patient has history of calcific tendonitis as per x-ray. No chest pain or shortness of breath Medications Administered Discontinued Medications Generic Name Dose Route Start Last Admin Trade Name Freq PRN Reason Stop Dose Admin Acetaminophen 975 mg 12/06/24 21:29 12/06/24 21:44 Acetaminophen 325 Mg Tablet PO 12/06/24 21:30 975 mg ONCE ONE Administration Cyclobenzaprine HCl 10 mg 12/06/24 21:29 12/06/24 21:44 Cyclobenzaprine Hcl 10 Mg Tablet PO 12/06/24 21:30 10 mg ONCE ONE Administration Medical Decision Making Medical Decision Making MDM Narrative: Medical Decision Makin-year-old female with atraumatic left shoulder pain worsening over the past few days. Told it was ?frozen?. The patient does have good range of motion but pain with ab duction. No bruising or swelling or erythema. She has no subjective fever no known arthritic 80s. Doubt arthritis, effusion. Recent x-ray shows no signs of dislocation or fracture though there is signs of calcific tendinitis. Examination reassuring here. Symptomatic relief is the goal today no indication for CT or repeating x-ray. May need a outpatient MRI. Bedside ultrasound does not show any overt biceps tendinitis at the insertion point or effusion. Normal musculature around the shoulder joint. Testing Interpreted Independently: Point of care ultrasound see procedure note Radiology or Lab testing Results Reviewed: Not Applicable Consults: Not Applicable Independent Historians/External Chart Reviews: Not Applicable Social Determinants of Health Impacting MDM/Planning: Not Applicable Discharge Plan Discharge Clinical Impression: Acute shoulder pain Patient Disposition: Home, Self-Care Instructions: Shoulder Pain (ED) Additional Instructions: DISCHARGE DIAGNOSES: Shoulder pain unclear cause at this time HISTORY OF PRESENTATION: ?Shoulder pain worsening with movement EMERGENCY DEPARTMENT COURSE,TESTS, TREATMENTS: While in the ED today you were given cyclobenzaprine muscle relaxant and Toradol nonsteroidal anti-inflammatory injection. You had an ultrasound and shoulder which showed no overt signs of tendinitis or fluid into the shoulder joint. DISCHARGE MEDICATIONS: ?Cyclobenzaprine a muscle relaxant was ordered we recommend [id number] diclofenac gel and/or lidocaine patches as well. FOLLOW-UP: ?Call your primary or general physician soon as possible to discuss your symptoms, your ED visit and to discuss follow up plans Continue with your scheduled orthopedic follow up INSTRUCTIONS ?& RETURN PRECAUTIONS: If any symptoms change first call your primary physician, if it is after-hours your primary doctors office should have a provider organic preparation technician you can speak with. If the symptoms are severe or very concerning to you then call 911 or return to the ED. For your information your 11/13/2024 x-ray showed calcific tendinitis which may be cause of your pain see the x-ray reading below from that time XR/XR shoulder LT min 2V IMPRESSION: Amorphous calcification posterior to the surgical neck of humerus could represent calcific tendonitis. Humberto Carmen MD Emergency Physician [facility] Prescriptions: New cyclobenzaprine 10 mg tablet 10 mg PO TID PRN (Reason: muscle spasm) Qty: 14 0RF No Action (DME) blood-glucose meter [FreeStyle Lite Meter] Kit See Rx Instructions .ROUTE .MEDSUPPLY Qty: 1 0RF Rx Instructions: As directed 4x/day (DME) pen needle, diabetic [Unifine Pentips Plus] 32 gauge x /32 needle See Rx Instructions .ROUTE .COMPLEX Qty: 175 11RF Dose Instruction: USE DIRECTED 5 TO 6 TIMES PER DAY Rx Instructions: USE DIRECTED 5 TO 6 TIMES PER DAY cholecalciferol (vitamin D3) 125 mcg (5,000 unit) capsule 125 mcg PO DAILY Qty: 30 11RF norethindrone (contraceptive) [Catrina] 0.35 mg tablet 0.35 mg PO DAILY 90 Days Qty: 90 1RF pantoprazole 20 mg tablet,delayed release (DR/EC) 20 mg PO DAILY 90 Days Qty: 90 0RF lisinopril 5 mg tablet 5 mg PO DAILY (DME) FreeStyle Lite Strips Strip See Rx Instructions .ROUTE .COMPLEX Qty: 120 11RF Dose Instruction: USE FOUR TIMES A DAY DIRECTED Rx Instructions: USE FOUR TIMES A DAY DIRECTED (DME) lancets [FreeStyle Lancets] 28 gauge misc See Rx Instructions .ROUTE .MEDSUPPLY Qty: 200 11RF Rx Instructions: six times daily insulin lispro 100 unit/mL insulin pen 11 - 25 unit subcut QID Qty: 15 4RF Baqsimi 3 mg/actuation spray,non-aerosol 3 mg intranasal ONCE 30 Days Qty: 2 6RF Rx Instructions: Wellman once for severe hypoglycemia when patient cannot self-treat with glucose. Afterwards turn on side. May repeat after 15 minutes if patient does not respond. insulin degludec [Tresiba FlexTouch U-200] 200 unit/mL (3 mL) insulin pen 42 unit subcut DAILY 30 Days Qty: 6.3 6RF (DME) Ketostix Strip See Rx Instructions .ROUTE .MEDSUPPLY Qty: 25 11RF Rx Instructions: bid prn nausea, vomiting, illness glucose over 300 Interventions: ED Discharge Assessment Last Done: 12/06/24 21:56 Discharge Date/Time: 12/06/24 21:56 Print Language: Honduran
--- OUTSIDE RECORDS SUMMARY | 2024-12-06 18:23 | XMS_ITS | Clinical Summary ---
Author Organization [facility] Address [address] [place] [id number] Phone Care Team Providers Care Tea Leaf Reader Name Role Phone Robert Taylor MD Primary Care Provider [phone] Allergies Active Allergy Reactions Criticality Noted Date [...] in type 1 diabetes, 04/27/17 8:54:48, Compound 04/27/20 17 Active Toujeo Max SoloStar 300 UNIT/ML solution pen-injector INJECT 45 UNITS UNDER THE SKIN ONCE A DAY 06/03/20 21 Active pantoprazole (PROTONIX) 20 MG EC tablet Take 20 mg by mouth 1 (one) time each day before breakfast Do not crush, chew, or split. Active Glucagon (BAQSIMI ONE PACK NA) Administer into affected nostril(s) Active lisinopril 5 MG tabletIndicatio ns:Urine microalbumin detected Take 1 tablet (5 mg total) by mouth 1 (one) time each day 90 tablet 3 11/20/19 25 Active lisinopril 5 MG tabletIndicatio ns:Type 1 diabetes mellitus, not otherwise specified (HCC),Urine microalbumin detected Take 1 tablet (5 mg total) by mouth 1 (one) time each day 90 tablet 3 10/26/19 24 025 Discontinued lisinopril 5 MG tabletIndicatio ns:Type 1 diabetes mellitus, not otherwise specified (HCC),Urine microalbumin detected TAKE ONE TABLET BY MOUTH EVERY DAY 90 tablet 3 11/20/19 25 025 Discontinued(R eorder (does not appear on AVS)) Active Problems Problem Noted Date Diagnosed Date [...] disease Recommend referral to Endocrinology for management Encounters Date Type Department Care Team Description 11/19/2024 2:30 PM EDT Office Visit [facility] [address] [facility] [address] [place] [phone] Graciela Tsai ARNP Urine microalbumin detected (Primary Dx) 11/19/2024 Refill [facility] [address] [facility] [address] [place] [id number] Graciela Tsai ARNP Type 1 diabetes mellitus, not otherwise specified (HCC); Urine microalbumin detected from Last 3 Months Family History Medical History Relation Comments Kidney [...] Sign Reading Time Taken Comments Blood Pressure 110/70 11/19/2024 2:39 PM EDT Pulse 106 11/19/2024 2:39 PM EDT Temperature - - Respiratory Rate - - Oxygen Saturation 100% 06/08/2021 2:06 PM EST Inhaled Oxygen Concentration - - Weight 88.5 kg (195 lb) 11/19/2024 2:39 PM EDT Height 160 cm (5' 3 ) 10/26/2022 4:05 PM EDT Body Mass Index 34.54 10/26/2022 4:05 PM EDT Plan of Treatment Upcoming Encounters Date Type Department Care Team (Late st Contact Info) Description 01/20/2026 1:00 PM EDT Office Visit [facility] [address] [phone] Graciela Tsai ARNP [address] [phone] Health Maintenance Due Date Last Done Comments [...] to complete this topic Insurance Care Teams Tea Leaf Reader Relationship Specialty Start Date End Date Robert Taylor MD [address] [place] [address] PCP - General 06/16/20
[2024-12-06 21:56] VITALS: BP 116/78; PULSE 93; RESP 18; TEMP 36.9; O2SAT 100
== END 2024-12-06 21:56 | disposition home or self-care (01) ==
PROVIDERS: Emergency Provider Emergency Medicine
DX: M25.512 Pain in left shoulder (principal); Z79.899 Other long term (current) drug therapy
CPT/HCPCS: 99283; 99284

== ENCOUNTER 2025-01-22 09:13 | Outpatient (REF) | payer OTHER, SELFPAY ==
--- NOTE | ~2025-01-22 | XR_ITS ---
EXAMINATION: XR SHOULDER, LEFT CLINICAL INFORMATION: M25.519 - Pain in unspecified shoulder COMPARISON: November 13, 2024 TECHNIQUE: AP external rotation, Grashey, scapular Y, and axillary views of the left shoulder. FINDINGS: No acute cortical disruption or malalignment. Mild sclerosis along the articular surface of the acromioclavicular joint. No lytic or blastic lesions. No soft tissue calcifications. XR/XR shoulder LT min 2V IMPRESSION: Mild osteoarthritis/osteoarthrosis, acromioclavicular joint. Electronically signed by: Deshawn Wilks MD 01/22/2025 03:10 PM EDT
--- OUTSIDE RECORDS SUMMARY | 2025-01-23 09:55 | XMS_ITS | Clinical Summary ---
Author Organization [facility] Address [address] [address] Phone Care Team Providers Care Manager Lsw Name Role Phone Robert Taylor MD Primary Care Provider [phone] Allergies Active Allergy Reactions Criticality Noted Date [...] Visit [facility] [address] [place] [address] Graciela Tsai ARNP Urine microalbumin detected (Primary Dx) 11/19/2024 Refill [facility] [address] [place] [address] Graciela Tsai ARNP Type 1 [...] Visit [facility] [address] [address] TsaiGracielaSANTINO [address] [address] Health Maintenance Due Date Last [...] patient's age to complete this topic Insurance [employer] Medicaid Care Teams Manager Lsw Relationship Specialty Start Date End Date Robert Taylor MD [address] [place] [address] PCP - General 06/16/20
== END 2025-01-22 09:14 | disposition home or self-care (01) ==
LOC: HO.HOSX 09:13
PROVIDERS: Visit Provider Physician Assistant
DX: M75.02 Adhesive capsulitis of left shoulder (principal); E10.21 Type 1 diabetes mellitus with diabetic nephropathy; R80.9 Proteinuria, unspecified; M25.512 Pain in left shoulder; Z79.4 Long term (current) use of insulin
CPT/HCPCS: 73030; 82947; 83036; 99212

== ENCOUNTER 2025-01-22 13:52 | Outpatient (AMB) | payer OTHER, SELFPAY ==
--- NOTE | 2025-01-22 13:56 | MHC.OFFVIS ---
Vital Signs 01/22/25 14:00 Height 5 ft 3 in Weight 207 lb 3.752 oz BMI 36.7 BP 108/78 Blood Pressure Location Rt brachial Position Sitting Pulse 104 H Pulse Source Pulse Oximeter Pulse Oximetry (%) 98 Oxygen Delivery Method Room Air Intake Visit Reasons: Type 1 DM Intake Note: Patient present today to follow up on Type 1 Diabetes Mellitus. Last seen by Radha Chowdhury on 07/10/2024. Last Diabetic Eye exam: Due, has an appointment in May 2025 Last Podiatry Visit: Does not see a Manager Library, referral was placed by Radha Chowdhury, patient states she has not been contacted. Random Glucose: 98 mg/dl HgA1C: 12.6% 01/22/2025 Sheet Hanger Required: No Accompanied by: Self / Same As Patient Allergies Sulfa (Sulfonamide Antibiotics) (SULFA (SULFONAMIDE ANTIBIOTICS)) Allergy (Intermediate, Verified 01/22/25 14:00) HIVES, bad rash naproxen Adverse Reaction (Severe, Verified 01/22/25 14:00) Palpitations Medication List - Last Reconciled 01/22/25 by Cheikh Cooper MD acetone (urine) test (Ketostix strips) bid prn nausea, vomiting, illness glucose over 300 blood sugar diagnostic (FreeStyle Lite Strips) USE FOUR TIMES A DAY DIRECTED blood-glucose meter (FreeStyle Lite Meter kit) As directed 4x/day cholecalciferol (vitamin D3) 125 mcg PO DAILY cyclobenzaprine 10 mg PO TID PRN glucagon 3 mg/actuation (Baqsimi) 3 mg intranasal ONCE 30 days insulin degludec (Tresiba FlexTouch U-200 insulin) 42 units (0.21 mL) subcut DAILY 30 days insulin lispro 11 - 25 units (0.11 - 0.25 mL) subcut QID lancets (FreeStyle Lancets) six times daily lisinopril 5 mg PO DAILY norethindrone (contraceptive) (Catrina) 0.35 mg PO DAILY 90 days pantoprazole 20 mg PO DAILY 90 days pen needle, diabetic (Unifine Pentips Plus) USE DIRECTED 5 TO 6 TIMES PER DAY HPI Comments Details: Patient is 30 yo female with DM type 1 diagnosed 09/2011 here for follow up management. Patient was last seen by Radha Mathews NP 08/08/24 Prior to being treated at [facility] endocrinology followed at [facility] and she reports they did testing to confirm she was type 1. She has been taking Tresiba once daily consistently Past medical history:DM1,low vitamin d, obesity Micro and macrovascular complications: microalbuminuria. She is followed by a ict support engineer on an annual basis for nephropathy with normal EGFR in his on low-dose HEIDI-inhibitor Diabetes medications: She uses a bolus calculator on her phone with insulin to carb ratio 1:7 , sensitivity 1:11. Tresiba 40 units Humalog: above correction/carb ratio has only been taking once daily as she hasn't been hungry secondary to depression. She recently suffered some losses, of cousin, best friend's dog and close friend lost a baby. She has not sought out mental health counseling. Not suicidal. Glucometer download shows she is checking her point of cares about 5 times a day. Ranges 47 to 484 with average glucose of 244. 27% range with 62% hyperglycemia 11% hypoglycemia. 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 Mother No problems noted. 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 Absence of acromegalic features. Neck exam reveals nl size thyroid about 15 gms. No thyroid nodules palpable. No carotid bruits present. Lungs CTA. Heart S1 S2, Reg R/R. No M/R/ G. Skin exam reveals absence of vitiligo or acanthosis nigricans. Abdominal exam reveals Soft NT/ND with NA BS. No organomegaly present. Extrem Other: Visual exam of foot performed. No ulcerations or open lesions. No onchomycosis, no callouses.Pulses 2 + distally. Sensation intact to monofilament exam. Vibratory sensation sensed 10 seconds in right, 10 seconds in left with 128 Hz tuning fork Results AMB Hemoglobin A1c AMB Hemoglobin A1c 12.6 % Last Edit by AFRICA Sherman on 01/22/25 14:19 Results Reviewed Results Reviewed: Laboratory Last Values Glucose (Clinic) 98 mg/dL (60-115) 01/22/25 14:09 Hgb A1c (Clinic) 12.6 % (4.0-6.0) H 01/22/25 14:12 Assessment & Plan Assessment & Plan (1) Type 1 diabetes mellitus with nephropathy: Code(s): E10.21 - Type 1 diabetes mellitus with diabetic nephropathy Category: Medical Plan: Is a 27-year-old white female with a history of type 1 diabeteswith glycemic control on basal-bolus insulin with known microvascular complications namely micro albuminuria. Plan is that the patient check her point cares pre and post meals. She would be a good candidate for a Dexcom or Carson and I will talk to her about this again. Difficult to make any change in the regimen considering limited data and wide variability. We will however decrease Tresiba to 36 units per Will also talk to the patient about possible use of an insulin pump and f/u to visual educator and distribution lineman. Will check lipid profile and microalbumin to creatinine ratio Orders: Orders AMB Hemoglobin A1c Today E10.21 - Type 1 diabetes mellitus with diabetic nephropathy Lipid Panel Today E10.21 - Type 1 diabetes mellitus with diabetic nephropathy Microalbumin, Random (w Creat) Today E10.21 - Type 1 diabetes mellitus with diabetic nephropathy Medications: New blood-glucose,clocksmith,cont (FreeStyle Carson 3 Norris) As directed 1 ea 0RF blood-glucose sensor (FreeStyle Carson 3 Plus Sensor device) As directed change every 15 days 2 ea 5RF glucose until symptoms of low blood sugar are controlled 4 grams PO Q15M PRN 60 tabs 5RF hypoglycemia Changed From insulin degludec (Tresiba FlexTouch U-200 insulin) 42 units (0.21 mL) subcut DAILY 30 days 6.3 mL 6RF E10.29 - Type 1 diabetes mellitus with other diabetic kidney complication, R80.9 - Proteinuria, unspecified To insulin degludec (Tresiba FlexTouch U-200 insulin) 36 units (0.18 mL) subcut DAILY 5.4 mL 6RF 30 days E10.29 - Type 1 diabetes mellitus with other diabetic kidney complication, R80.9 - Proteinuria, unspecified Coding Level of Care Code Est Pt Level 4 (91092) Diagnoses Type 1 diabetes mellitus with nephropathy E10.
[2025-01-22 14:00] VITALS: BP 108/78; PULSE 104; O2SAT 98; BMI 36.7
[2025-01-22 14:13] LABS: Glucose, Whole Blood 98 mg/dL (60-115)
--- OUTSIDE RECORDS SUMMARY | 2025-01-22 15:11 | XMS_ITS | Clinical Summary ---
Author Organization [facility] Address [address] [address] Phone Care Team Providers Care Studio Potter Name Role Phone Robert Taylor MD Primary Care Provider [phone] Allergies Active Allergy Reactions Criticality Noted Date [...] THE SKIN ONCE A DAY 1 Active pantoprazole (PROTONIX) 20 MG EC tablet Take 20 mg by mouth 1 (one) time each day before breakfast Do not crush, chew, or split. Active Glucagon (BAQSIMI ONE PACK NA) Administer into affected nostril(s) Active lisinopril 5 MG tabletIndications :Urine microalbumin detected Take 1 tablet (5 mg total) by mouth 1 (one) time each day 90 tablet 3 5 Active Active Problems Problem Noted Date Diagnosed [...] Visit [facility] [address] [place] [address] Graciela Tsai ARNP Urine microalbumin detected (Primary Dx) 11/19/2024 Refill [facility] [address] [place] [address] Graciela Tsai ARNP Type 1 diabetes mellitus, [...] Visit [facility] [address] [address] TsaiGracielaSANTINO [address] [address] Health Maintenance Due Date Last Done Comments Diabetes: Hemoglobin A1C 07/06/2020 Diabetes: Ophthalmology Exam 07/06/2020 12/14/2006 Diabetes: Pedal Pulse Checked 07/06/2020 Diabetes: Sensory Foot Exam 07/06/2020 Diabetes: Visual Foot Exam 07/06/2020 Influenza Vaccine (#1) 2025 Hepatitis B Vaccine Completed 1993, 1993, 1993 Pneumococcal Vaccine: Peds ( 0 to 5 Years) and At-Risk Patients (6 to 49 Years) Aged Out No longer eligi ble based on patient's age to complete this topic Insurance [facility] Medicaid Care Teams Studio Potter Relationship Specialty Start Date End Date Robert Taylor MD [address] [place] [address] PCP - General 06/16/20
== END 2025-01-22 14:41 | disposition home or self-care (01) ==
LOC: HO.ENCR 13:53
PROVIDERS: PCP Internal Medicine; Visit Provider Internal Medicine Endocrinology, Diabetes & Metabolism
DX: E10.21 Type 1 diabetes mellitus with diabetic nephropathy (principal)
CPT/HCPCS: 99214

== ENCOUNTER 2025-01-22 14:49 | Outpatient (AMB) | payer OTHER, SELFPAY ==
--- NOTE | 2025-01-22 14:56 | A.OFFVIS_ITS ---
Intake Visit Reasons: New prob-Lt shoulder pain Intake Note: Lynnette is a 29 year old right hand dominant female who presents today for a evaluation of her left shoulder pain. Patient reports ongoing pain for about 4 months. She notices that her pain is on the lateral aspect and at times it radiates up to her neck after she does her physical therapy. Patient states that her pain is worse when she is getting dressed and when she is lifting her arm. IMPRESSION: Amorphous calcification posterior to the surgical neck of humerus could represent calcific tendonitis. Allergies Sulfa (Sulfonamide Antibiotics) (SULFA (SULFONAMIDE ANTIBIOTICS)) Allergy (Intermediate, Verified 01/22/25 15:10) HIVES, bad rash naproxen Adverse Reaction (Severe, Verified 01/22/25 15:10) Palpitations HPI HPI New prob-Lt shoulder pain: Details: Ms. Hoyt is a 30-year-old right-hand dominant female who presents to the office today for evaluation of left shoulder pain. She reports the pain has b een ongoing for the past 4 months. She denies any injury or trauma. She is actively in physical therapy for the right shoulder for adhesive capsulitis and reports that the symptoms are similar but less intense on the left side. She is looking to attend physical therapy. Of note, the patient does have a past medical history significant for type 1 diabetes. [facility] Medical History Type 1 diabetes mellitus Type 1 diabetes mellitus with nephropathy Proteinuria Adult BMI 45.0-49.9 kg/sq m Vitamin D deficiency Type 1 diabetes mellitus with hyperglycemia Surgical History Hx of oral surgery Family History Father No problems noted. Mother No problems noted. 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 External rotation to neutral and unable to perform any motion due to stiffness. Negative drop arm and empty can. NVI. Psych Appearance: grossly normal Mental Status: mental status grossly normal Attitude: cooperative Results AMB Hemoglobin A1c AMB Hemoglobin A1c 12.6 % Last Edit by AFRICA Sherman on 01/22/25 14:19 Assessment & Plan Assessment & Plan (1) Adhesive capsulitis of left shoulder: Code(s): M75.02 - Adhesive capsulitis of left shoulder Category: Medical Plan Ms. Hoyt is a 30-year-old right-hand dominant female who presents to the office today for evaluation of left shoulder pain. She reports the pain has been ongoing for the past 4 months. She denies any injury or trauma. She is actively in physical therapy for the right shoulder for adhesive capsulitis and reports that the symptoms are similar but less intense on the left side. She is looking to attend physical therapy. Of note, the patient does have a past medical history significant for type 1 diabetes. While in the office today, I have placed an order for physical therapy of the left shoulder. Patient will attend all sessions of physical therapy and should she have continued pain and stiffness we will discuss cortisone injection. We have elected to hold off at this time. During today's visit the patient reports that her glucose level had dropped into the 50s. She was provided with food and water to assist with rising her levels until of safe for her departure. She will follow up after physical therapy, sooner if needed. X-rays of the left shoulder which were obtained while in the office today and were reviewed by me, Melissa Leal PA-C, revealed no acute fracture or dislocation. Orders: Orders XR shoulder LT min 2V 01/22/25 M25.519 - Pain in unspecified shoulder PT Evaluation and Treatment 01/22/25 M75.02 - Adhesive capsulitis of left shoulder Coding Level of Care Code Est Pt Level 3 (42219) Diagnoses Adhesive capsulitis of left shoulder M75.02
== END 2025-01-22 16:09 | disposition home or self-care (01) ==
LOC: HO.HOS 14:49
PROVIDERS: PCP Internal Medicine; Visit Provider Physician Assistant
DX: M75.02 Adhesive capsulitis of left shoulder (principal)
CPT/HCPCS: 99213

== ENCOUNTER → 2025-01-22 14:53 | Outpatient (BNV) | payer OTHER, SELFPAY | PROVIDERS: Visit Provider Radiology Diagnostic Radiology | DX: M19.012 Primary osteoarthritis, left shoulder (principal) | CPT/HCPCS: 73030 ==